=== PATIENT | male | born 1935 | race Caucasian/White ===

== ENCOUNTER 2017-01-29 19:04 | Inpatient (IN) | payer OTHER, MEDICARE ==
[~2017-01-29] VITALS: Ht 182.9 cm; Wt 110.5 kg
[~2017-01-29 19:04] MED LIST: BUME2TAB PO; CART300C PO; COUM2.5T PO; METO50TA PO; RANI300C PO; TRAM50TA PO; WARF-23 PO
[2017-01-29 19:12] VITALS: BP 143/69; PULSE 112; RESP 25; TEMP 98.8; O2SAT 97
[2017-01-29 19:21] VITALS: BP 125/93; PULSE 126; RESP 20; O2SAT 95
--- NOTE | 2017-01-29 19:28 | PD ---
HPI Chief Complaint: General Weakness Time Seen by Provider: 19:19 Travel History International Travel<30 days: No Contact w/Intl Traveler<30days: No Traveled to known affect area: No History of Present Illness HPI The patient is a 81 year old male who presents to the [facility] emergency department with a history of bilateral lower extremity swelling and pain with standing that began on evening. He reports that he has had a history of cellulitis one time in the past that improved with wound care. He reports that last week he fell and scraped his left knee and his right narayan. He reports that since then the areas of abrasions have begun to weep and appeared to have gotten infected. The patient reports that today related to the pain in his legs and difficulty walking he did fall. He denies injuring himself with the fall. He reports that he was in the process of making food when he fell. He reports that he has not eaten throughout the day because of the fall. The patient reports that he lives at home alone. He reports that his primary care physician is Dr. Lucas Welch. He denies having any known fevers. A review of systems, he reports having some dyspnea on exertion, however he reports that this is chronic. He denies having any medical history of breathing disorders. He reports that he did have a history of smoking, however he quit approximately 17 years ago. He denies using any inhalers. The patient denies any recent cough , congestion, neck pain, chest pain, abdominal pain, vomiting, diarrhea, urinary symptoms, or neurologic symptoms. The patient reports that he last moved his bowels earlier today. [facility] Past Medical History Narrative Medical The patient's past medical history is significant for prostate cancer status post prostatectomy and radiation treatment, history of atrial fibrillation, hypertension, history of being chronically anticoagulated on Coumadin, history of acid reflux, history of chronic back pain related to spinal stenosis. The patient reports that he was recently referred to pain management. He has undergone a series of 3 back injections. The last back injection was 3 weeks ago. He reports that it has not helped at all. He reports that he is pain- free when he sits or lies down, however when he stands or walks the pain is excruciating. Hx Anticoagulant Therapy: Yes Atrial Fibrillation: Yes Blood Disorders: Yes Heart Rhythm Problems: Yes (A FIB) Cancer: Yes Cardiovascular Problems: Yes GERD: Yes Hypertension: Yes Past Surgical History Narrative Surgical The patient's past surgical history is significant for an appendectomy, prostatectomy. Appendectomy: Yes Prostatectomy: Yes Social History Alcohol Use: Yes (1 beer daily) Tobacco Use: No Substance Use: No Allergies-Medications (Allergen,Severity, Reaction): Coded Allergies: Sulfa (Verified Allergy, Severe, 10/17/16) Tetanus Immune Globulin (Verified Allergy, Severe, Swelling, 10/17/16) Reported Meds & Prescriptions Reported Meds & Active Scripts Active Reported Tramadol (Tramadol HCl) 50 Mg Tab 50 Mg PO BID PRN Ranitidine (Ranitidine HCl) 300 Mg Cap 300 Mg PO BID Metoprolol Tartrate 50 Mg Tab 50 Mg PO TID Coumadin (Warfarin) 2.5 Mg Tab 2.5 Mg PO DAILY Bumetanide 2 Mg Tab 2 Mg PO DAILY PRN Cartia Xt (Diltiazem ER 24 HR) 300 Mg Caper 300 Mg PO DAILY Review of Systems Except as stated in HPI: all other systems reviewed are Neg General / Constitutional: No: Fever, Chills Eyes: No: Visual changes HENT: No: Headaches Cardiovascular: Positive: Dyspnea on exertion, Edema, No: Chest Pain or Discomfort Respiratory: No: Shortness of Breath Gastrointestinal: No: Nausea, Vomiting, Diarrhea, Abdominal Pain Genitourinary: No: Dysuria Musculoskeletal: Positive: Myalgias, Arthralgias, Limited ROM, Edema, Pain Skin: No Rash Neurologic: No: Weakness, Focal Abnormalities, Change in Mentation, Slurred Speech, Sensory Disturbance Psychiatric: No: Depression Endocrine: No: Polydipsia Hematologic/Lymphatic: No: Easy Bruising Physical Exam Narrative General: The patient is a well-developed well-nourished male in no acute distress. Head and Neck exam: Head is normocephalic atraumatic. Eyes: EOMI, pupils are equal round and reactive to light. Nose: Midline septum with pink mucous membranes Mouth: Dentition unremarkable. Moist mucus membranes. Posterior oropharynx is not erythematous. No tonsillar hypertrophy. Uvula midline. Airway patent. Neck: No palpable lymphadenopathy. No nuchal rigidity. No thyromegaly. Cardiovascular: Irregularly irregular with a rate in the 1 teens to 120s without murmurs, gallops, or rubs. Lungs: Clear to auscultation bilaterally. No wheezes, rhonchi, or rales. Abdomen: Soft, without tenderness to palpation in all 4 quadrants of the abdomen. No guarding, rebound, or rigidity. Normal bowel sounds are audible. No tenderness on palpation of McBurney's point Extremities: No clubbing or cyanosis. The patient has 2+ pitting edema bilateral lower extremity. The patient has less than 3 second capillary refill bilateral lower extremities, 2+ pulses in bilateral upper extremities. The patient on examination of bilateral lower narayan is has cellulitis with weeping noted. The patient has 2 wounds noted one on the right leg, right lateral narayan that is 4 x 3 cm. The patient on examination of the left knee has a 3 x 2 cm area of abrasion with drainage. Back: No costovertebral angle tenderness to palpation. Neurologic Exam: Grossly nonfocal. Data Data Last Documented VS Vital Signs Date Time Temp Pulse Resp B/P Pulse Ox O2 Delivery O2 Flow Rate FiO2 01/29/17 19:21 126 20 125/93 95 Room Air 01/29/17 19:12 98.8 Orders Us Leg Venous Doppler Bilat (01/29/17 19:28) Electrocardiogram (01/29/17:29) Complete Blood Count With Diff (01/29/17:) Comprehensive Metabolic Panel (01/29/17:) Creatine Kinase (Cpk) (01/29/17:29) Ckmb (Isoenzyme) Profile (01/29/17:29) Troponin I (01/29/17:) B-Type Natriuretic Peptide (01/29/17:) Prothrombin Time / Inr (Pt) (01/29/17:) Act Partial Throm Time (Ptt) (01/29/17:29) Blood Culture (01/29/17:) C-Reactive Protein (Crp) (01/29/17:) Wound Culture And Gram Stain (01/29/17:) Chest, Single Ap (01/29/17:) Iv Access Insert/Monitor (01/29/17:) Ecg Monitoring (01/29/17:) Oximetry (01/29/17:) Lactic Acid Sepsis Protocol (01/29/17:) Sodium Chlorid 0.9% 500 Ml Inj (Ns 500 M (01/29/17 19:30) Piperacil-Tazo 3.375 Gm Premix (Zosyn 3. (01/29/17 19:30) Vancomycin Inj (Vancomycin Inj) (01/29/17 19:30) Ct Brain W/O Iv Contrast(Rout) (01/29/17 19:33) Ct Cerv Spine W/O Contrast (01/29/17 19:33) Sodium Chlorid 0.9% 500 Ml Inj (Ns 500 M (01/29/17 20:45) Admit Order (Ed Use Only) (01/29/17 20:57) Labs Laboratory Tests Test 01/29/17 01/29/17 19:15 19:39 White Blood Count 16.4 TH/MM3 Red Blood Count 5.27 MIL/MM3 Hemoglobin 16.3 GM/DL Hematocrit 48.9 % Mean Corpuscular Volume 92.8 FL Mean Corpuscular Hemoglobin 30.9 PG Mean Corpuscular Hemoglobin 33.3 % Concent Red Cell Distribution Width 14.7 % Platelet Count 565 TH/MM3 Mean Platelet Volume 7.9 FL Neutrophils (%) (Auto) 85.6 % Lymphocytes (%) (Auto) 4.1 % Monocytes (%) (Auto) 8.8 % Eosinophils (%) (Auto) 0.3 % Basophils (%) (Auto) 1.2 % Neutrophils # (Auto) 14.1 TH/MM3 Lymphocytes # (Auto) 0.7 TH/MM3 Monocytes # (Auto) 1.4 TH/MM3 Eosinophils # (Auto) 0.0 TH/MM3 Basophils # (Auto) 0.2 TH/MM3 CBC Comment DIFF FINAL Differential Comment Prothrombin Time 18.6 SEC Prothromb Time International 1.6 RATIO Ratio Activated Partial 35.7 SEC Thromboplast Time Sodium Level 134 MEQ/L Potassium Level 3.9 MEQ/L Chloride Level 93 MEQ/L Carbon Dioxide Level 30.2 MEQ/L Anion Gap 11 MEQ/L Blood Urea Nitrogen 36 MG/DL Creatinine 1.80 MG/DL Estimat Glomerular Filtration 37 ML/MIN Rate Random Glucose 124 MG/DL Calcium Level 9.1 MG/DL Total Bilirubin 1.1 MG/DL Aspartate Amino Transf 27 U/L (AST/SGOT) Alanine Aminotransferase 36 U/L (ALT/SGPT) Alkaline Phosphatase 130 U/L Total Creatine Kinase 81 U/L Troponin I LESS THAN 0.02 NG/ML C-Reactive Protein 9.90 MG/DL B-Type Natriuretic Peptide 50 PG/ML Total Protein 7.7 GM/DL Albumin 2.9 GM/DL Lactic Acid Level 3.4 mmol/L [facility] Medical Decision Making Medical Screen Exam Complete: Yes Emergency Medical Condition: Yes Medical Record Reviewed: Yes Interpretation(s) Last Impressions Head CT 01/29/171932 Signed Impressions: Service Date/Time: Sunday, January 29, 2017 19:49 - CONCLUSION: No acute disease. Dewey Castellon MD FACR Cervical Spine CT 01/29/171932 Signed Impressions: Service Date/Time: Sunday, January 29, 2017 19:49 - CONCLUSION: Extensive degenerative changes are present. Significant spinal stenosis is present from mid C4 to mid C7. There is no evidence for fracture. Dewey Castellon MD FACR Chest X-Ray 01/29/171928 Signed Impressions: Service Date/Time: Sunday, January 29, 2017 19:43 - CONCLUSION: Compensated cardiomegaly otherwise negative Dewey Castellon MD FACR Lower Extremity Ultrasound 01/29/171927 Signed Impressions: Service Date/Time: Sunday, January 29, 2017 20:11 - CONCLUSION: Negative for deep venous thrombosis.. Dewey Castellon MD FACR Differential Diagnosis Cellulitis, versus renal failure, versus DVT, versus cor pulmonale, versus left- sided congestive heart failure. Narrative Course During the course of the patients emergency department visit, the patients history, examination, and differential diagnosis were reviewed with the patient. The patient had IV access obtained and blood work sent for analysis. The patient was placed on a mine car repairer with oximetry and blood pressure monitoring. The patient had an EKG done on arrival. The patient's EKG shows atrial fibrillation with RVR, heart rate of 111, no acute ST segment elevation or depression. A premature ventricular complexes noted. The patient was initially provided normal saline of 500 mL bolus. The patient was given Zosyn 3.375 g IV, vancomycin 1 g IV. The patients laboratory studies were reviewed and remarkable for a white count of 16.4, hemoglobin 16.3, platelets 565 with 85.6 neutrophils, lymphocytes 4.1 monocytes 8.8, CMP is remarkable for sodium of 134, chloride 93, BUN 36, creatinine 1.80, glucose 124, total bilirubin 1.1, alkaline phosphatase 130, CPK 81, troponin I less than 0.02, C-reactive protein 9.9, albumin 2.9, BNP 50. Lactic acid 3.4, INR 1.6 The patient's laboratory studies were reviewed from prior evaluation. The patient does have a history of renal insufficiency. His last BUN and creatinine in 2010 were 28 and 1.41 respectively. The patient's elevated lactate could be related to a combination of dehydration and infectious process. The patient has a normal BNP, therefore the patient was given an additional normal saline 500 mL bolus. The patient will also be continued on IV fluids and reexamined repeatedly for any signs of fluid overload. The patient will be continued on judicious IV hydration due to his compensated cardiomegaly on chest x-ray. The patient's tachycardia is improved with rehydration. Radiology studies were reviewed and remarkable for a chest x-ray that showed compensated cardiomegaly otherwise negative, CT scan of the brain showed no acute abnormality. CT scan of the C-spine showed extensive degenerative changes , significant spinal stenosis is present from mid C4 to mid c 7, no evidence for fracture. Ultrasound of bilateral lower extremities reveals no evidence of DVT. The patients results were discussed with the patient, including the plan of care. I explained that further testing and/ or monitoring is indicated based on the patients history, examination, and/ or laboratory findings. Therefore, I recommended admission for additional evaluation. The patient expressed understanding and was agreeable with this plan. The patient was admitted to the hospital in stable condition and [facility] Critical Care Narrative Aggregate critical care time was 33 minutes. Time to perform other separately billable procedures was not included in the critical care time. My time did not include minutes spent treating any other patients simultaneously or on activities that did not directly contribute to the patient's treatment. The services I provided to this patient were to treat and/or prevent clinically significant deterioration that could result in: Respiratory failure, versus cardiovascular collapse, versus electrolyte derangements I provided critical care services requiring my management, as noted below: Chart data review, documentation time, medication orders and management, vital sign assessments/reviewing monitor data, ordering and reviewing lab tests, ordering and interpreting/reviewing x-rays and diagnostic studies, care of the patient and discussion of the patient with the admitting physicians. Sepsis Criteria SIRS Criteria (2 or more): Heart rate over 90, RR > 20 or PaCO2 < 32, WBC > 45699, < 4000 or > 10% bands Sepsis Criteria (SIRS+source): Infect source susp/known Severe Sepsis (+one): Lactate >2 Physician Communication Physician Communication The patient's case was discussed with Dr. Gutierrez, who did agree to admit the patient for further evaluation and treatment at this time. Diagnosis Primary Impression: Lower extremity cellulitis Qualified Code: L03.119 - Cellulitis of lower extremity, unspecified laterality Additional Impression: Sepsis Qualified Code: A41.9 - Sepsis, due to unspecified organism Admitting Information Admitting Physician Requests: Admit Alessandra Slade MD January 29, 2017 19:28
[2017-01-29] MEDS ORDERED: SODIUM CHLORID 0.9% 500 ML INJ 500 ML IV ONE ×2 (19:30→20:45)
[2017-01-29] MEDS ORDERED: PIPERACIL-TAZO 3.375 GM PREMIX 50 ML IV ONE (19:30)
[2017-01-29] MEDS ORDERED: VANCOMYCIN INJ 1,000 MG in SODIUM CHLOR 0.9% 250 ML INJ 250 ML IV ONE (19:30)
--- NOTE | 2017-01-29 19:54 | RADRPT ---
EXAM DATE/TIME: 01/29/2017 19:43 [facility] COMPARISON: No previous studies available for comparison. INDICATIONS : Shortness of breath and lower extremity swelling. MEDICAL HISTORY : Atrial fibrillation. SURGICAL HISTORY : None. ENCOUNTER: Initial ACUITY: 1 day PAIN SCORE: 0/10 LOCATION: Bilateral chest FINDINGS: A single view of the chest demonstrates the lungs to be symmetrically aerated without evidence of mas s, infiltrate The lungs are clear. The heart is minimally enlarged. The pulmonary vascularity is normal. There is n o evidence for infiltrate or failure. The portion of the bony skeleton visualized is unremarkable. CONCLUSION: Compensated cardiomegaly otherwise negative Dewey Castellon MD FACR Board Certified Radiologist. This report was verified electronically.
[2017-01-29 20:06] LABS: AUTOMATED NEUTROPHIL # 14.1 TH/MM3 (1.8-7.7); BASOPHIL # 0.2 TH/MM3 (0-0.2); BASOPHIL % 1.2 % (0.0-2.0); EOSINOPHIL % 0.3 % (0.0-4.0); HEMATOCRIT 48.9 % (39.0-51.0); HEMO FLAGS DIFF FINAL; LYMPH % 4.1 % (9.0-44.0); LYMPHOCYTE # 0.7 TH/MM3 (1.0-4.8); MEAN CELL VOLUME 92.8 FL (80.0-100.0); MEAN CORPUSCULAR HEMOGLOBIN 30.9 PG (27.0-34.0); MEAN CORPUSCULAR HGB CONC 33.3 % (32.0-36.0); MONO % 8.8 % (0.0-8.0); NEUT % 85.6 % (16.0-70.0); PLATELET COUNT 565 TH/MM3 (150-450); RED BLOOD COUNT 5.27 MIL/MM3 (4.50-5.90); RED CELL DISTRIBUTION WIDTH 14.7 % (11.6-17.2); WHITE BLOOD COUNT 16.4 TH/MM3 (4.0-11.0)
--- NOTE | 2017-01-29 20:06 | RADRPT ---
EXAM DATE/TIME: 01/29/2017 19:49 [facility] COMPARISON: No previous studies available for comparison. INDICATIONS : Trauma, fall today. RADIATION DOSE: 38.34 CTDIvol (mGy) MEDICAL HISTORY : Cardiovascular disease. Hypertension. Carcinoma, prostate. SURGICAL HISTORY : Appendectomy. Prostatectomy. ENCOUNTER: Initial ACUITY: 1 day PAIN SCALE: 2/10 LOCATION: cranial TECHNIQUE: Multiple contiguous axial images were obtained of the head. Using automated exposure control and adj ustment of the mA and/or kV according to patient size, radiation dose was kept as low as reasonably a chievable to obtain optimal diagnostic quality images. FINDINGS: CEREBRUM: The ventricles are normal for age. No evidence of midline shift, mass lesion, hemorrhage or acute in farction. No extra-axial fluid collections are seen. POSTERIOR FOSSA: The cerebellum and brainstem are intact. The 4th ventricle is midline. The cerebellopontine angle i s unremarkable. EXTRACRANIAL: The visualized portion of the orbits is intact. SKULL: The calvaria is intact. No evidence of skull fracture. CONCLUSION: No acute disease. Dewey Castellon MD FACR on January 29, 2017 at 20:04 Board Certified Radiologist. This report was verified electronically.
--- NOTE | 2017-01-29 20:15 | RADRPT ---
EXAM DATE/TIME: 01/29/2017 19:49 [facility] COMPARISON: No previous studies available for comparison. INDICATIONS : Trauma, fall today. Complains of neck pain. RADIATION DOSE: 20.66 CTDIvol (mGy) MEDICAL HISTORY : Hypertension. Cardiovascular disease Carcinoma, prostate. SURGICAL HISTORY : Prostatectomy. Appendectomy. ENCOUNTER: Initial ACUITY: 1 day PAIN SCALE: 3/10 LOCATION: neck TECHNIQUE: Volumetric scanning of the cervical spine was performed. Multiplanar reconstructions in the sagittal, coronal and oblique axial planes were performed. Using automated exposure control and adjustment o f the mA and/or kV according to patient size, radiation dose was kept as low as reasonably achievable to obtain optimal diagnostic quality images. FINDINGS: VERTEBRAE: Normal vertebral body height. ALIGNMENT: Extensive degenerative changes are present with minimal degenerative subluxation. C2-C3: Mild interspace ridging is present without significant spinal stenosis. Degenerative changes are pre sent at C1-C2. C3-C4: Moderate uncinate ridging is present with significant right-sided neural foramen encroachment. C4-C5: Is an enhancing ridging is present with significant right-sided neural foramina encroachment. C5-C6: There is radiographically significant spinal stenosis with significant bilateral neural foramina encr oachment. C6-C7: Significant spinal stenosis is evident with bilateral prominent placement. C7-T1: The bony spinal canal is normal in size. No evidence of disc bulge or herniation. The neural forami na are bilaterally patent. CONCLUSION: Extensive degenerative changes are present. Significant spinal stenosis is present from mid C4 to mi d C7. There is no evidence for fracture. Dewey Castellon MD FACR on January 29, 2017 at 20:10 Board Certified Radiologist. This report was verified electronically.
[2017-01-29 20:19] LABS: APTT (PATIENT) 35.7 SEC (24.3-30.1); INTERNATIONAL NORMALIZED RATIO 1.6 RATIO; PROTHROMBIN TIME - PATIENT 18.6 SEC (9.8-11.6)
[2017-01-29 20:26] LABS: ANION GAP 11 MEQ/L (5-15); AST (GOT) 27 U/L (15-37); BICARBONATE 30.2 MEQ/L (21.0-32.0); BLOOD UREA NITROGEN 36 MG/DL (7-18); CHLORIDE 93 MEQ/L (98-107); GLOMERULAR FILTRATION RATE 37 ML/MIN (>89); POTASSIUM 3.9 MEQ/L (3.5-5.1); SODIUM (NA) 134 MEQ/L (136-145)
[2017-01-29 20:32] LABS: ALKALINE PHOSPHATASE 130 U/L (45-117); ALT (GPT) 36 U/L (12-78); TOTAL BILIRUBIN ADULT 1.1 MG/DL (0.2-1.0)
[2017-01-29 20:33] LABS: CREATINE KINASE 81 U/L (39-308)
--- NOTE | 2017-01-29 20:54 | RADRPT ---
EXAM DATE/TIME: 01/29/2017 20:11 [facility] COMPARISON: No previous studies available for comparison. INDICATIONS : Bilateral leg swelling and pain. MEDICAL HISTORY : Hypertension. Gastroesophageal reflux disease. Carcinoma, prostate. Afib. Cellulitis. Anticoagulant t herapy. Osteoarthritis. Skin cancer. Radiation therapy. Spinal stenosis. SURGICAL HISTORY : Prostatectomy.Appendectomy. ENCOUNTER: Initial ACUITY: 4 - 6 days PAIN SCORE: 9/10 LOCATION: Bilateral legs. TECHNIQUE: Venous ultrasound of the left and right leg was performed from the inguinal ligament to the proximal calf. Real-time, color Doppler and spectral tracing, compression and augmentation techniques were us ed. FINDINGS: RIGHT LEG: There is normal compressibility of the deep venous system from the inguinal region to the proximal ca lf. No echogenic clot is seen in the lumen of the common femoral, femoral, popliteal, and posterior tibial veins. There is a normal response of the venous system to proximal and distal augmentation an d respiration. LEFT LEG: There is normal compressibility of the deep venous system from the inguinal region to the proximal ca lf. No echogenic clot is seen in the lumen of the common femoral, femoral, popliteal, and posterior tibial veins. There is a normal response of the venous system to proximal and distal augmentation an d respiration. CONCLUSION: Negative for deep venous thrombosis.. Dewey Castellon MD FACR on January 29, 2017 at 20:51 Board Certified Radiologist. This report was verified electronically.
[2017-01-29] MEDS ORDERED: BUMETANIDE 1 MG TAB PO PRN (21:00)
[2017-01-29] MEDS ORDERED: METOPROLOL TARTRATE 50 MG TAB PO ONE (21:00)
[2017-01-29] MEDS ORDERED: MORPHINE SULFATE 4 MG/ML INJ IV PRN (21:00)
[2017-01-29] MEDS ORDERED: ACETAMINOPHEN 325 MG TAB PO PRN (21:00)
[2017-01-29] MEDS ORDERED: SODIUM CHLORIDE 0.9% FLUSH 10 ML FLUSH IV FLUSH PRN (21:00)
[2017-01-29] MEDS ORDERED: BISACODYL 10 MG SUPP RECTAL PRN (21:00)
[2017-01-29] MEDS ORDERED: ONDANSETRON HCL 4 MG/2 ML VIAL IVP PRN (21:00)
[2017-01-29] MEDS ORDERED: Vancomycin Consult Pharmacy 1 EA OTHER SCH (21:00)
--- NOTE | 2017-01-29 21:02 | HHI.HP ---
HPI Service [facility] Primary Care Physician No Primary Care Physician Admission Diagnosis Cellulitis bilateral lower extremities Diagnoses: (1) Sepsis Diagnosis: Principal (2) Lower extremity cellulitis Diagnosis: Principal (3) Fall Diagnosis: Principal (4) Dehydration Diagnosis: Principal (5) Renal insufficiency Diagnosis: Principal (6) Atrial fibrillation with RVR Diagnosis: Principal Travel History International Travel<30 Days: No Contact w/Intl Traveler <30 Da: No Traveled to Known Affected Are: No History of Present Illness This is a 81-year-old male with PMH of HTN, Prostate CA s/p Prostatectomy/ Radiation, A. fib on Coumadin, Chronic Back Pain and Spinal Stenosis who presented to the ER with complaints of bilateral lower extremity edema and pain w/ difficulty ambulating since . Per pt, had fall and sustained abrasions to bilateral lower extremities, now w/ progressive pain and swelling. Notes significant pain bilateral feet making ambulation difficult. Had recurrent fall today, but denies any injury. No LOC or head trauma. Denies fever, chills, nausea/vomiting or diarrhea. On arrival, noted to be in A -fib w/ RVR, HR 110-120's, BP 143/69, O2 sat 97% on RA, Afebrile. WBC 16.4. Creatinine 1.80, previously 1.41 on 01/10/11. Lactic Acid 3.4. Troponin negative. INR 1.6. LE Doppler negative for DVT. CXR with compensated cardiomegaly. CT Evidence acute findings. CT C-spine with extensive degenerative changes, significant spinal stenosis, no acute fracture. S/p Wound /Blood Cultures in ER, in addition to Vanc/Zosyn. Review of Systems Except as stated in HPI: all other systems reviewed are Neg ROS: 14 point review of systems otherwise negative. Past Family Social History Past Medical History PMH: HTN, Prostate CA s/p Prostatectomy/Radiation, A. fib on Coumadin, Chronic Back Pain and Spinal Stenosis Past Surgical History PAST SURGICAL HISTORY: Appendectomy, Prostatectomy Allergies: Coded Allergies: Sulfa (Verified Allergy, Severe, 10/17/16) Tetanus Immune Globulin (Verified Allergy, Severe, Swelling, 10/17/16) Family History PAST FAMILY HISTORY: Reviewed. No h/o DM or CAD Social History PAST SOCIAL HISTORY: One beer daily. Negative for tobacco or drugs. Physical Exam Vital Signs Vital Signs Date Time Temp Pulse Resp B/P Pulse Ox O2 Delivery O2 Flow Rate FiO2 01/29/17 19:21 126 20 125/93 95 Room Air 01/29/17 19:12 98.8 112 25 143/69 97 Room Air Physical Exam PE: GENERAL: Elderly white male in no acute distress. HEENT: PERRLA, EOMI. No scleral icterus or conjunctival pallor. No lid lag or facial droop. CARDIOVASCULAR: Irregularly irregular, in A. fib, HR 110-120. No obvious murmurs to auscultation. No chest tenderness to palpation. RESPIRATORY: No obvious rhonchi or wheezing. Clear to auscultation. Breath sounds equal bilaterally. GASTROINTESTINAL: Abdomen soft, non-tender, nondistended. BS normal. MUSCULOSKELETAL: Bilateral lower extremities w/ 2-3+ pitting edema, +erythema/ warmth indicative of cellulitis. Abrasions to bilateral knees, right narayan w/ abrasion/ulceration, +purulent drainage. NEUROLOGICAL: Awake, alert and oriented x4. No focal neurologic deficits. Moving both upper and lower extremities spontaneously. Laboratory Laboratory Tests Test 01/29/17 01/29/17 19:15 19:39 White Blood Count 16.4 Red Blood Count 5.27 Hemoglobin 16.3 Hematocrit 48.9 Mean Corpuscular Volume 92.8 Mean Corpuscular Hemoglobin 30.9 Mean Corpuscular Hemoglobin 33.3 Concent Red Cell Distribution Width 14.7 Platelet Count 565 Mean Platelet Volume 7.9 Neutrophils (%) (Auto) 85.6 Lymphocytes (%) (Auto) 4.1 Monocytes (%) (Auto) 8.8 Eosinophils (%) (Auto) 0.3 Basophils (%) (Auto) 1.2 Neutrophils # (Auto) 14.1 Lymphocytes # (Auto) 0.7 Monocytes # (Auto) 1.4 Eosinophils # (Auto) 0.0 Basophils # (Auto) 0.2 CBC Comment DIFF FINAL Differential Comment Prothrombin Time 18.6 Prothromb Time International 1.6 Ratio Activated Partial 35.7 Thromboplast Time Sodium Level 134 Potassium Level 3.9 Chloride Level 93 Carbon Dioxide Level 30.2 Anion Gap 11 Blood Urea Nitrogen 36 Creatinine 1.80 Estimat Glomerular Filtration 37 Rate Random Glucose 124 Calcium Level 9.1 Total Bilirubin 1.1 Aspartate Amino Transf 27 (AST/SGOT) Alanine Aminotransferase 36 (ALT/SGPT) Alkaline Phosphatase 130 Total Creatine Kinase 81 Troponin I LESS THAN 0.02 C-Reactive Protein 9.90 B-Type Natriuretic Peptide 50 Total Protein 7.7 Albumin 2.9 Lactic Acid Level 3.4 Date/Time Procedure Status Source Growth 01/29/17 19:40 Gram Stain Received Wound Leg Pending 01/29/17 19:40 Wound Culture Received Wound Leg Pending 01/29/17 19:30 Aerobic Blood Culture Received Blood Peripheral Pending 01/29/17 19:30 Anaerobic Blood Culture Received Blood Peripheral Pending Result Diagram: 01/29/17191401/29/171914 Assessment and Plan Problem List: (1) Sepsis ICD Code: A41.9 Status: Acute (2) Lower extremity cellulitis ICD Code: L03.119 Status: Acute (3) Fall ICD Code: W19.XXXA Status: Acute (4) Atrial fibrillation with RVR ICD Code: I48.91 Status: Acute (5) Dehydration ICD Code: E86.0 Status: Acute (6) Renal insufficiency ICD Code: N28.9 Status: Acute Assessment and Plan A/P: 1. Sepsis: HR 120's, WBC 16, Lactic Acid 3.4, Source-LE Cellulitis. S/p Blood /Wound Cultures, Vanc/Zosyn in ER. Follow up cultures, continue w/ IV Abx, repeat Lactate. IVF for hydration. 2. Lower Extremity Cellulitis: s/p fall w/ abrasions to bilateral lower extremity, now infected. LE Doppler negative for DVT, images reviewed by me. Continue w/ IV Abx as above. Wound Management consult for further eval. 3. Fall: S/p Fall, recurrent, secondary to gait instability from progressive lower extremity edema/pain. Denies head trauma or LOC, CT Head w/ no acute findings. CT C-Spine w/ degenerative changes, severe spinal stenosis, no acute fracture, images reviewed by me. PT for eval/tx. 4. A-fib: w/ RVR, HR 110-120's, likely secondary to dehydration from decreased PO intake. IVF for hydration, telemetry. Resume home Metoprolol, Diltiazem. On Coumadin, subtherapeutic, resume Coumadin. Check INR in am. 5. Dehydration: GFR 37, BUN/Creatinine increased from previous labs, IVF for hydration, repeat labs in am. 6. Renal Insufficiency: Acute on Chronic. Creatinine 1.80, previously 1.41 on 01/10/11. IVF for hydration, caution w/ diuresis. Repeat labs in am. 7. DVT Prophylaxis: On Coumadin. Subtherapeutic at 1.6, will resume, repeat INR in am. 8. Social work for d/c planning as needed. 9. Case discussed w/ ER physician at length Physician Certification 2 Midnight Certification Type: Admission for Inpatient Services Order for Inpatient Services The services are ordered in accordance with Medicare regulations or non- Medicare payer requirements, as applicable. In the case of services not specified as inpatient-only, they are appropriately provided as inpatient services in accordance with the 2-midnight benchmark. Estimated LOS (days): 2 days is the estimated time the patient will need to remain in the hospital, assuming treatment plan goals are met and no additional complications. Post-Hospital Plan: Not yet determined Kylie Gutierrez MD January 29, 2017 21:02
[2017-01-29 21:03] VITALS: BP 125/82; PULSE 100; RESP 18; O2SAT 95
[2017-01-29] MEDS: SODIUM CHLORIDE 0.9% FLUSH 10 ML FLUSH IV FLUSH SCH (21:15)
[2017-01-29] MEDS: FAMOTIDINE 20 MG TAB PO SCH (21:19)
[2017-01-29 21:25] VITALS: BP 125/70; PULSE 110; RESP 15; O2SAT 96
[2017-01-29 21:47] LABS: LACTIC ACID GHOST NOT REPORTABLE
[2017-01-29 23:00] VITALS: BP 100/70; PULSE 90; RESP 20; TEMP 98.8; O2SAT 92
[2017-01-29] MEDS: SODIUM CHLOR 0.9% 1000 ML INJ 1,000 ML IV SCH (23:31)
[2017-01-30] VITALS (9 sets, daily range): BP systolic 100–151; BP diastolic 55–72; PULSE 89–106; RESP 16–20; TEMP 98–99.6; O2SAT 92–98
[2017-01-30 07:07] LABS: AUTOMATED NEUTROPHIL # 9.8 TH/MM3 (1.8-7.7); BASOPHIL % 0.2 % (0.0-2.0); EOSINOPHIL % 0.2 % (0.0-4.0); HEMATOCRIT 41.2 % (39.0-51.0); HEMO FLAGS DIFF FINAL; LYMPH % 7.4 % (9.0-44.0); LYMPHOCYTE # 0.9 TH/MM3 (1.0-4.8); MEAN CELL VOLUME 92.6 FL (80.0-100.0); MEAN CORPUSCULAR HEMOGLOBIN 30.9 PG (27.0-34.0); MEAN CORPUSCULAR HGB CONC 33.3 % (32.0-36.0); MONO % 9.1 % (0.0-8.0); NEUT % 83.1 % (16.0-70.0); PLATELET COUNT 427 TH/MM3 (150-450); RED BLOOD COUNT 4.45 MIL/MM3 (4.50-5.90); RED CELL DISTRIBUTION WIDTH 15.2 % (11.6-17.2); WHITE BLOOD COUNT 11.8 TH/MM3 (4.0-11.0)
[2017-01-30 07:15] LABS: INTERNATIONAL NORMALIZED RATIO 2.2 RATIO
[2017-01-30 07:41] LABS: ALKALINE PHOSPHATASE 100 U/L (45-117); ALT (GPT) 27 U/L (12-78); ANION GAP 5 MEQ/L (5-15); AST (GOT) 20 U/L (15-37); BICARBONATE 33.9 MEQ/L (21.0-32.0); BLOOD UREA NITROGEN 28 MG/DL (7-18); CHLORIDE 99 MEQ/L (98-107); GLOMERULAR FILTRATION RATE 53 ML/MIN (>89); POTASSIUM 4.3 MEQ/L (3.5-5.1); SODIUM (NA) 138 MEQ/L (136-145); TOTAL BILIRUBIN ADULT 0.9 MG/DL (0.2-1.0)
[2017-01-30] MEDS: METOPROLOL TARTRATE 50 MG TAB PO SCH ×3 (08:48→17:58)
[2017-01-30] MEDS: SODIUM CHLOR 0.9% 1000 ML INJ 1,000 ML IV SCH ×2 (08:48→16:14)
[2017-01-30] MEDS: FAMOTIDINE 20 MG TAB PO SCH ×2 (08:48→22:40)
[2017-01-30] MEDS: DILTIAZEM-CD 300 MG CAP ER PO SCH (08:49)
[2017-01-30] MEDS: BUMETANIDE 1 MG TAB PO SCH (08:49)
[2017-01-30] MEDS ORDERED: CEFEPIME INJ 1,000 MG in SODIUM CHLORIDE 0.9% INJ 100 ML IV SCH (09:00)
[2017-01-30] MEDS ORDERED: WARFARIN SOD 2.5 MG TAB PO SCH ×2 (09:00→16:00)
[2017-01-30] MEDS ORDERED: CEFEPIME 2000 MG/NS 100 ML IV SCH ×4 (09:30→10:00)
[2017-01-30] MEDS: SODIUM CHLORIDE 0.9% FLUSH 10 ML FLUSH IV FLUSH SCH ×2 (10:08→22:40)
[2017-01-30] MEDS: VANCOMYCIN INJ 2,000 MG in SODIUM CHLORID 0.9% 500 ML INJ 500 ML IV SCH (12:22)
[2017-01-30] MEDS: ACETAMINOPHEN/HYDROcodone 325 MG/5 MG TAB PO PRN ×3 (12:47→22:39)
[2017-01-30] MEDS ORDERED: GADODIAMIDE PF 287 MG/ML 5 ML VIAL (for RAD MRI) IV ONE (19:11)
--- NOTE | 2017-01-30 20:15 | RADRPT ---
EXAM DATE/TIME: 01/30/2017 18:55 [facility] COMPARISON: No previous studies available for comparison. INDICATIONS : Radiculopathy. CONTRAST: 22 cc Omniscan (gadodiamide) IV MEDICAL HISTORY : Carcinoma, prostate. Diabetes mellitus type 2. Skin cancer. SURGICAL HISTORY : Appendectomy. Prostatectomy. Skin cancer removed. ENCOUNTER: Initial ACUITY: 4-6 months PAIN SCORE: 10/10 LOCATION: Bilateral lower back region. TECHNIQUE: Multiplanar multisequence MRI of the lumbar spine was performed with and without contrast. FINDINGS: The most caudal appearing lumbar vertebra is numbered as L5. VERTEBRAE: Homogeneous signal. Normal alignment. Multilevel degenerative changes greatest at L5-S1. CONUS: Normal level and configuration. POST CONTRAST: No abnormal areas of contrast enhancement are seen. T12-L1: The thecal sac has a normal diameter. No evidence of disc bulge or protrusion. The neural foramina are patent bilaterally. L1-L2: Moderate left-sided protrusion abuts the left ventral thecal sac and abuts the L3 nerve root in the l ateral recess. There is extruded component extending superiorly underneath the posterior longitudinal ligament. There is narrowing of the left lateral recess. The neural foramina are patent bilaterally . L2-L3: Mild broad-based disc bulge abuts ventral thecal sac without canal stenosis. Moderate facet arthropat hy. The neural foramina are patent bilaterally. L3-L4: Moderate broad-based disc bulge slightly eccentric to left abuts the ventral thecal sac. Mild degree of canal stenosis. Mild facet arthropathy/ligamentum flavum thickening. The disc abuts the exiting le ft L3 nerve root there is mild narrowing of the neural foramen. Right neural foramen is patent. L4-L5: Moderate broad-based protrusion more eccentric to the right abuts the ventral thecal sac. There is al so a synovial cyst projecting from the medial right facet causes moderate to severe canal stenosis. M oderate hypertrophic facet arthropathy. Mild neural foraminal narrowing bilaterally. L5-S1: Broad-based disc bulge abuts the thecal sac. No canal stenosis. Moderate neural foraminal narrowing o n the right. Left neural foramen is patent. CONCLUSION: 1. Moderate left-sided protrusion at L1-2 with extruded component abutting the left L3 nerve root lat eral recess there is narrowing of the lateral recess. 2. Mild broad-based disc bulge at L2-3 and L5-S1 levels without canal stenosis. 3. Moderate broad-based disc bulge more eccentric to left at L3-4 causing mild canal stenosis. 4. Moderate broad-based extrusion marked eccentric to the right at L4-5 and conjunction with a synovi al cyst arising from the right facet causes moderate/severe canal stenosis. Juan Cartagena MD on January 30, 2017 at 20:07 Board Certified Radiologist. This report was verified electronically.
--- NOTE | 2017-01-30 21:39 | PD.CONS ---
History of Present Illness Service Neurosurgery Consult Requested By Dr. Rodriguez Reason for Consult Difficulty with ambulation Primary Care Physician Tremayne Welch M.D. Diagnoses: History of Present Illness 81-year-old male who states that he has a history of lumbar stenosis with at least several months of low back pain with ambulation. However he denies any pain weakness or numbness in the lower extremities prior to this past , 01/26/17. He states that he sometimes uses his 's cane or walker to ambulate , but states that this is due to low back pain not to gait unsteadiness. He did have 3 epidural steroid injections recently, with the last injection approximately 4 weeks ago. He states that the injections did not help the low back pain. He has a history of prostate cancer status post prostatectomy and radiation, but denies any recent or chronic problems with his bowel or bladder function. Mr. Shea states that this past , 01/26/2017, he was in his kitchen and his leg suddenly went out on him. He was not able to get up, and laid on the floor for a couple of hours until he could crawl over to the phone and call for help. A friend or neighbor came to help him. He stated that overnight and the next morning he states that he felt reasonably well and he was able to get up and go shopping that day. He did well until Monday night, 01/29/17 when he was at home in his legs again went out on him suddenly. This time he came to the emergency room. He states that also since 01/26/17 he is noted new onset of edema and erythema in his distal lower extremities. He usually does have some swelling and some skin changes in the legs, but not the extent that he has noted over the past few days. He does complain of rather chronic numbness in the hands which she attributes to arthritis. He does not complain of any pain or weakness in the upper extremities or significant loss of coordination. Review of Systems Constitutional: DENIES: Fever, Dizziness, Change in appetite Eyes: DENIES: Blurred vision, Diplopia Ears, nose, mouth, throat: DENIES: Hearing loss, Vertigo Respiratory: DENIES: Cough, Shortness of breath Cardiovascular: COMPLAINS OF: Dyspnea on Exertion, DENIES: Chest pain, Palpitations Gastrointestinal: DENIES: Abdominal pain, Constipation, Diarrhea, Nausea Genitourinary: COMPLAINS OF: Urinary frequency, DENIES: Urinary incontinence, Urgency Musculoskeletal: COMPLAINS OF: Joint pain, Back pain, DENIES: Muscle aches, Neck pain Hematologic/lymphatic: COMPLAINS OF: Bruising Neurologic: COMPLAINS OF: Abnormal gait, Poor Balance, DENIES: Headache, Localized weakness Psychiatric: DENIES: Confusion, Depression Past Family Social History Allergies: Coded Allergies: Sulfa (Verified Allergy, Severe, 10/17/16) Tetanus Immune Globulin (Verified Allergy, Severe, Swelling, 10/17/16) Past Medical History History of atrial fibrillation Hypertension Denies diabetes, dyslipidemia, pulmonary disease History of prostate cancer Past Surgical History Prostatectomy followed by radiation for prostate cancer Recent epidural steroid injections Appendectomy Reported Medications Reported Meds & Active Scripts Active Reported Tramadol (Tramadol HCl) 50 Mg Tab 50 Mg PO BID PRN Ranitidine (Ranitidine HCl) 300 Mg Cap 300 Mg PO BID Metoprolol Tartrate 50 Mg Tab 50 Mg PO TID Coumadin (Warfarin) 2.5 Mg Tab 2.5 Mg PO DAILY Bumetanide 2 Mg Tab 2 Mg PO DAILY PRN Cartia Xt (Diltiazem ER 24 HR) 300 Mg Caper 300 Mg PO DAILY Family History His father of a heart attack His mother of cancer Social History No history of cigarette use Drinks alcohol occasionally He lives alone Physical Exam Vital Signs Vital Signs Date Time Temp Pulse Resp B/P Pulse Ox O2 Delivery O2 Flow Rate FiO2 01/30/17 20:34 98.1 99 20 105/59 95 01/30/17 16:00 98.7 90 20 100/55 92 01/30/17 13:47 18 01/30/17 12:27 98.0 89 18 150/65 97 01/30/17 12:00 98.0 89 18 151/65 01/30/17 08:45 100 16 110/60 01/30/17 08:00 98.9 106 18 104/62 96 01/30/17 04:00 98.5 94 20 110/69 94 01/30/17 00:00 99.6 95 20 103/72 98 01/29/17 23:00 98.8 90 20 100/70 92 Physical Exam GENERAL: Moderately obese gentleman in no apparent distress SKIN: Significant erythema and edema in the distal lower extremities. Dry scaling skin in the calves and feet. He has dressings in place on lower extremity wounds at the distal calves and ankles HEAD: Atraumatic. Normocephalic. No temporal or scalp tenderness. EYES: Sclerae are clear and nonicteric ENT: No facial edema or ecchymosis NECK: . Supple, nontender, no meningeal signs. CARDIOVASCULAR: Irregular rhythm without murmurs, gallops, or rubs. RESPIRATORY: Clear to auscultation. Breath sounds equal bilaterally. No wheezes , rales, or rhonchi. GASTROINTESTINAL: Abdomen slightly firm, non-tender, moderately distended. No hepato-splenomegaly, or palpable masses. No guarding. MUSCULOSKELETAL: Mild arthritic changes in the hands. No complaint of pain with joint range of motion in the upper and lower extremities. NEUROLOGICAL: Awake and alert Oriented X 3 Speech is clear Conversant and appropriate Follow simple commands well Answers questions appropriately Reasonable judgment and insight Recent and remote memory are intact No evidence of anxiety or depression Pupils are equal and reactive to accommodation. Extra-ocular movements, facial motor movements, and bilateral shoulder shrug are all intact. Sensation is intact to light touch in all extremities except for complaint of mild paresthesias to light touch in the hands Strength normal major flexion and extension groups all extremities except for mild decreased right triceps and hand intrinsics. He states that he is left- handed. Valeri's response mild positive bilateral No ankle clonus Plantar responses are mildly extensor with mild quadriceps contraction bilateral Fine motor movements mildly slowed in the hands Laboratory Laboratory Tests Test 01/29/17 01/30/17 22:15 06:39 Lactic Acid Level 2.2 1.6 White Blood Count 11.8 Red Blood Count 4.45 Hemoglobin 13.7 Hematocrit 41.2 Mean Corpuscular Volume 92.6 Mean Corpuscular Hemoglobin 30.9 Mean Corpuscular Hemoglobin 33.3 Concent Red Cell Distribution Width 15.2 Platelet Count 427 Mean Platelet Volume 7.6 Neutrophils (%) (Auto) 83.1 Lymphocytes (%) (Auto) 7.4 Monocytes (%) (Auto) 9.1 Eosinophils (%) (Auto) 0.2 Basophils (%) (Auto) 0.2 Neutrophils # (Auto) 9.8 Lymphocytes # (Auto) 0.9 Monocytes # (Auto) 1.1 Eosinophils # (Auto) 0.0 Basophils # (Auto) 0.0 CBC Comment DIFF FINAL Differential Comment Prothrombin Time 25.0 Prothromb Time International 2.2 Ratio Sodium Level 138 Potassium Level 4.3 Chloride Level 99 Carbon Dioxide Level 33.9 Anion Gap 5 Blood Urea Nitrogen 28 Creatinine 1.31 Estimat Glomerular Filtration 53 Rate Random Glucose 130 Calcium Level 8.6 Total Bilirubin 0.9 Aspartate Amino Transf 20 (AST/SGOT) Alanine Aminotransferase 27 (ALT/SGPT) Alkaline Phosphatase 100 Total Protein 6.0 Albumin 2.3 Date/Time Procedure Status Source Growth 01/29/17 19:40 Gram Stain - Final Resulted Wound Leg 01/29/17 19:40 Wound Culture - Preliminary Resulted Gram Negative Percy Staphylococcus Aureus 01/29/17 19:30 Aerobic Blood Culture - Preliminary Resulted Blood Peripheral NO GROWTH IN 1 DAY 01/29/17 19:30 Anaerobic Blood Culture - Preliminary Resulted Blood Peripheral NO GROWTH IN 1 DAY 01/29/17 19:29 Gram Stain Received Wound Leg Pending 01/29/17 19:29 Wound Culture Received Wound Leg Pending Result Diagram: 01/30/17 0639 01/30/17 0639 Imaging 01/30/17 MRI lumbar spine images performed this evening as well as CT scan cervical spine images from 01/29/17 reviewed by the undersigned. Agree with findings as noted below: Lumbar Spine MRI 01/30/17 0000 Signed Impressions: Service Date/Time: Monday, January 30, 2017 18:55 - CONCLUSION: 1. Moderate left-sided protrusion at L1-2 with extruded component abutting the left L3 nerve root lateral recess there is narrowing of the lateral recess. 2. Mild broad-based disc bulge at L2-3 and L5-S1 levels without canal stenosis. 3. Moderate broad-based disc bulge more eccentric to left at L3-4 causing mild canal stenosis. 4. Moderate broad-based extrusion marked eccentric to the right at L4-5 and conjunction with a synovial cyst arising from the right facet causes moderate/severe canal stenosis. Juan Cartagena MD Head CT 01/29/171932 Signed Impressions: Service Date/Time: Sunday, January 29, 2017 19:49 - CONCLUSION: No acute disease. Dewey Castellon MD FACR Cervical Spine CT 01/29/171932 Signed Impressions: Service Date/Time: Sunday, January 29, 2017 19:49 - CONCLUSION: Extensive degenerative changes are present. Significant spinal stenosis is present from mid C4 to mid C7. There is no evidence for fracture. Dewey Castellon MD FACR Chest X-Ray 01/29/171928 Signed Impressions: Service Date/Time: Sunday, January 29, 2017 19:43 - CONCLUSION: Compensated cardiomegaly otherwise negative Dewey Castellon MD FACR Lower Extremity Ultrasound 01/29/171927 Signed Impressions: Service Date/Time: Sunday, January 29, 2017 20:11 - CONCLUSION: Negative for deep venous thrombosis.. Dewey Castellon MD FACR Assessment and Plan Assessment and Plan Impression: 1. Lumbar spondylosis and degenerative disc disease with moderately severe L4 5 stenosis, partially secondary to synovial cyst formation, as well as significant L1-2 stenosis 2. Cervical stenosis. Possible myelopathy 3. Recent episodes of acute onset paraparesis. Presently his lower extremity strength is within normal limits. His MRI this evening reveals a distended bladder. However no definite evidence of cauda equina syndrome on examination. Recommendations: Proceed with MRI cervical spine Continue physical therapy Bladder ultrasound requested this evening with possible Whitehead catheter placement -discussed with nursing staff and with patient. Discussed need for surgical intervention for the lumbar stenosis with the patient. The risk of developing radiculopathy or cauda equina syndrome discussed. He is anxious to go home, indicating that he came in last evening not anticipated that he would have to stay in the hospital. He states that he lives alone and has some things that he has to take care of. Explained to him the present medical issues which are being treated and evaluated, and he expresses an understanding of the issues involved. We will need to discuss with medicine service regarding the patient's medical clearance for surgery Moses Vargas MD January 30, 2017 21:39
[2017-01-30] MEDS ORDERED: PHYTONADIONE 5 MG TAB PO ONE (22:15)
--- NOTE | 2017-01-30 22:42 | HHI.PR ---
Subjective Remarks Patient seen today around 1 PM. Reports that pain in legs is improving. He denies any chest pain or shortness of breath. He reports history of spinal stenosis. Reports that when he looks up he loses all strength, and also reports constant sharp back pain with walking, with occasional weakness in right leg. He does report chronic shortness of breath with exertion, however denies any exertional chest pain or history of coronary artery disease Objective Vital Signs Date Time Temp Pulse Resp B/P Pulse Ox O2 Delivery O2 Flow Rate FiO2 01/30/17 20:34 98.1 99 20 105/59 95 01/30/17 16:00 98.7 90 20 100/55 92 01/30/17 13:47 18 01/30/17 12:27 98.0 89 18 150/65 97 01/30/17 12:00 98.0 89 18 151/65 01/30/17 08:45 100 16 110/60 01/30/17 08:00 98.9 106 18 104/62 96 01/30/17 04:00 98.5 94 20 110/69 94 01/30/17 00:00 99.6 95 20 103/72 98 01/29/17 23:00 98.8 90 20 100/70 92 I/O 01/29/17 01/29/17 01/29/17 01/30/17 01/30/17 01/30/17 06:59 14:59 22:59 06:59 14:59 22:59 Intake Total 720 ml 2277 ml Output Total 850 ml Balance 720 ml 1427 ml Intake Oral 720 ml 610 ml IV Total 1667 ml Output Urine Total 850 ml # Voids 1 # Bowel Movements 0 Result Diagram: 01/30/17 0639 01/30/17 0639 Imaging Last Impressions Lumbar Spine MRI 01/30/17 0000 Signed Impressions: Service Date/Time: Monday, January 30, 2017 18:55 - CONCLUSION: 1. Moderate left-sided protrusion at L1-2 with extruded component abutting the left L3 nerve root lateral recess there is narrowing of the lateral recess. 2. Mild broad-based disc bulge at L2-3 and L5-S1 levels without canal stenosis. 3. Moderate broad-based disc bulge more eccentric to left at L3-4 causing mild canal stenosis. 4. Moderate broad-based extrusion marked eccentric to the right at L4-5 and conjunction with a synovial cyst arising from the right facet causes moderate/severe canal stenosis. Juan Cartagena MD Head CT 01/29/171932 Signed Impressions: Service Date/Time: Sunday, January 29, 2017 19:49 - CONCLUSION: No acute disease. Dewey Castellon MD FACR Cervical Spine CT 01/29/171932 Signed Impressions: Service Date/Time: Sunday, January 29, 2017 19:49 - CONCLUSION: Extensive degenerative changes are present. Significant spinal stenosis is present from mid C4 to mid C7. There is no evidence for fracture. Dewey Castellon MD FACR Chest X-Ray 01/29/171928 Signed Impressions: Service Date/Time: Sunday, January 29, 2017 19:43 - CONCLUSION: Compensated cardiomegaly otherwise negative Dewey Castellon MD FACR Lower Extremity Ultrasound 01/29/171927 Signed Impressions: Service Date/Time: Sunday, January 29, 2017 20:11 - CONCLUSION: Negative for deep venous thrombosis.. Dewey Castellon MD FACR Objective Remarks GENERAL:patient sitting up in bed. Appears comfortable. Alert and oriented 3. SKIN: Warm and dry. HEAD: Normocephalic. EYES: No scleral icterus. No injection or drainage. NECK: Supple, trachea midline. No JVD. CARDIOVASCULAR: Regular rate and rhythm without murmurs, gallops, or rubs. RESPIRATORY: Breath sounds equal bilaterally. No accessory muscle use. GASTROINTESTINAL: Abdomen soft, non-tender, nondistended. MUSCULOSKELETAL: No cyanosis. +2 bilateral lower extremity edema.erythema bilateral ankles with dressing intact. BACK: Nontender without obvious deformity. No CVA tenderness. A/P Assessment and Plan //Sepsis //Bilateral lower extremity cellulitis //Suspected bilateral lower extremity neurogenic edema. -Tachycardia, leukocytosis, lactic acidosis on admission. Lactic acid improved -Continue broad-spectrum antibiotics. -Elevate extremities. Erythema bilateral lower extremities -Follow up cultures //Severe cervical and lumbar stenosis. acute on chronic -Known history of spinal stenosis, however with worsening. Unable to walk with physical therapy here. -MRI ordered. Close monitoring. Neurosurgery consult. Appreciate assistance. //Atrial fibrillation. With RVR on admission. -RVR has improved Rate control with metoprolol, diltiazem. -Anticoagulation with Coumadin. No history of stroke. //Appropriateness for spinal surgery. Patient denies any exertional chest pain. Was self-sufficient in ADLs prior to recent fall. Denies any history of coronary artery disease, although does have atrial fibrillation, obesity. Patient has an above average risk for any complication, calculated at 4.3%, However is medically optimized. Risk factors-Obesity, atrial fibrillation, chronic kidney disease stage III. Admission for bilateral lower extremity cellulitis which is improving. Will need INR reversed prior to any surgical procedure. //Chronic kidney disease. Creatinine 1.8 on admission, improved. Continue to monitor. Continue IV fluids. //Recent fall prior to admission. CT head negative. Spinal stenosis as above. //DVT prophylaxis. On Coumadin. Will be reversed for surgery. Discharge Planning patient will need surgery for spinal stenosis. Will likely need inpatient rehabilitation. Vinny Rodriguez MD January 30, 2017 22:42
[2017-01-31 00:21] VITALS: BP 136/60; PULSE 98; RESP 18; TEMP 98.2; O2SAT 97
[2017-01-31] MEDS: SODIUM CHLOR 0.9% 1000 ML INJ 1,000 ML IV SCH ×2 (02:57→08:56)
[2017-01-31 04:00] VITALS: BP 130/64; PULSE 97; RESP 18; TEMP 97.9; O2SAT 96
[2017-01-31] MEDS: CEFEPIME INJ 2,000 MG in SODIUM CHLORIDE 0.9% INJ 100 ML IV SCH ×3 (05:17→21:42)
[2017-01-31] MEDS: VANCOMYCIN INJ 2,000 MG in SODIUM CHLORID 0.9% 500 ML INJ 500 ML IV SCH (06:15)
[2017-01-31 07:39] LABS: INTERNATIONAL NORMALIZED RATIO 1.8 RATIO; PROTHROMBIN TIME - PATIENT 19.9 SEC (9.8-11.6)
[2017-01-31 07:43] LABS: AUTOMATED NEUTROPHIL # 8.8 TH/MM3 (1.8-7.7); BASOPHIL # 0.1 TH/MM3 (0-0.2); BASOPHIL % 0.7 % (0.0-2.0); EOSINOPHIL # 0.1 TH/MM3 (0-0.4); EOSINOPHIL % 0.6 % (0.0-4.0); HEMATOCRIT 43.1 % (39.0-51.0); HEMO FLAGS DIFF FINAL; LYMPH % 6.3 % (9.0-44.0); LYMPHOCYTE # 0.7 TH/MM3 (1.0-4.8); MEAN CELL VOLUME 93.7 FL (80.0-100.0); MEAN CORPUSCULAR HEMOGLOBIN 30.9 PG (27.0-34.0); MONO % 13.2 % (0.0-8.0); NEUT % 79.2 % (16.0-70.0); PLATELET COUNT 390 TH/MM3 (150-450); RED CELL DISTRIBUTION WIDTH 15.3 % (11.6-17.2); WHITE BLOOD COUNT 11.1 TH/MM3 (4.0-11.0)
[2017-01-31 07:46] LABS: POTASSIUM 3.5 MEQ/L (3.5-5.1)
[2017-01-31 08:00] VITALS: BP 130/59; PULSE 97; RESP 20; TEMP 97.4; O2SAT 96
[2017-01-31] MEDS: BUMETANIDE 1 MG TAB PO SCH (08:55)
[2017-01-31] MEDS: DILTIAZEM-CD 300 MG CAP ER PO SCH (08:55)
[2017-01-31] MEDS: SODIUM CHLORIDE 0.9% FLUSH 10 ML FLUSH IV FLUSH SCH ×2 (08:56→21:41)
[2017-01-31] MEDS: FAMOTIDINE 20 MG TAB PO SCH ×2 (08:56→21:41)
[2017-01-31] MEDS: METOPROLOL TARTRATE 50 MG TAB PO SCH ×3 (08:56→17:08)
[2017-01-31] MEDS: ACETAMINOPHEN/HYDROcodone 325 MG/5 MG TAB PO PRN ×2 (09:06→19:05)
--- NOTE | 2017-01-31 11:01 | HHI.NSPN ---
(Nato Alarcon Emily KIM) Note Status Status: Progress Note (Nato Alarcon) Interval History Interval History 01/30: 81-year-old male who states that he has a history of lumbar stenosis with at least several months of low back pain with ambulation. However he denies any pain weakness or numbness in the lower extremities prior to this past , 01/26/17. He states that he sometimes uses his 's cane or walker to ambulate, but states that this is due to low back pain not to gait unsteadiness. He did have 3 epidural steroid injections recently, with the last injection approximately 4 weeks ago. He states that the injections did not help the low back pain. He has a history of prostate cancer status post prostatectomy and radiation, but denies any recent or chronic problems with his bowel or bladder function. Mr. Shea states that this past , 01/26/2017, he was in his kitchen and his leg suddenly went out on him. He was not able to get up, and laid on the floor for a couple of hours until he could crawl over to the phone and call for help. A friend or neighbor came to help him. He stated that overnight and the next morning he states that he felt reasonably well and he was able to get up and go shopping that day. He did well until Monday night, 01/29/17 when he was at home in his legs again went out on him suddenly. This time he came to the emergency room. He states that also since 01/26/17 he is noted new onset of edema and erythema in his distal lower extremities. He usually does have some swelling and some skin changes in the legs, but not the extent that he has noted over the past few days. He does complain of rather chronic numbness in the hands which she attributes to arthritis. He does not complain of any pain or weakness in the upper extremities or significant loss of coordination. 01/31: The patient states that he is doing good this morning. He does have some back pain. He states the problem is with his legs. He feels the swelling is slightly better but not as much as he had hoped. His major emphasis was that he lives alone and came to the hospital on not expecting to be admitted. He wants to be discharged so that he may go home. (Nato Alarcon) Labs, Micro, & Vital Signs Results Allergies Coded Allergies Type Severity Reaction Last Updated Verified Sulfa Allergy Severe 10/17/16 Yes Tetanus Immune Globulin Allergy Severe Swelling 10/17/16 Yes Recent Impressions Lumbar Spine MRI 01/30/17 0000 Signed Impressions: Service Date/Time: Monday, January 30, 2017 18:55 - CONCLUSION: 1. Moderate left-sided protrusion at L1-2 with extruded component abutting the left L3 nerve root lateral recess there is narrowing of the lateral recess. 2. Mild broad-based disc bulge at L2-3 and L5-S1 levels without canal stenosis. 3. Moderate broad-based disc bulge more eccentric to left at L3-4 causing mild canal stenosis. 4. Moderate broad-based extrusion marked eccentric to the right at L4-5 and conjunction with a synovial cyst arising from the right facet causes moderate/severe canal stenosis. Juan Cartagena MD Head CT 01/29/171932 Signed Impressions: Service Date/Time: Sunday, January 29, 2017 19:49 - CONCLUSION: No acute disease. Dewey Castellon MD FACR Cervical Spine CT 01/29/171932 Signed Impressions: Service Date/Time: Sunday, January 29, 2017 19:49 - CONCLUSION: Extensive degenerative changes are present. Significant spinal stenosis is present from mid C4 to mid C7. There is no evidence for fracture. Dewey Castellon MD FACR Chest X-Ray 01/29/171928 Signed Impressions: Service Date/Time: Sunday, January 29, 2017 19:43 - CONCLUSION: Compensated cardiomegaly otherwise negative Dewey Castellon MD FACR Lower Extremity Ultrasound 01/29/171927 Signed Impressions: Service Date/Time: Sunday, January 29, 2017 20:11 - CONCLUSION: Negative for deep venous thrombosis.. Dewey Castellon MD FACR //175////175// 06:00 18:00 06:00 18:00 06:00 18:00 Intake Total 720 ml 2277 ml 1238 ml Output Total 850 ml 1100 ml 500 ml Balance 720 ml 1427 ml 138 ml -500 ml Intake Oral 720 ml 610 ml IV Total 1667 ml 1238 ml Output Urine Total 850 ml 1100 ml 500 ml Bladder Scan Volume Amount 51 ml # Voids 1 1 # Bowel Movements 0 0 Laboratory Tests Test 01/29/17 01/29/17 01/29/17 01/30/17 19:15 19:39 22:15 06:39 White Blood Count 16.4 TH/MM3 11.8 TH/MM3 Red Blood Count 5.27 MIL/MM3 4.45 MIL/MM3 Hemoglobin 16.3 GM/DL 13.7 GM/DL Hematocrit 48.9 % 41.2 % Mean Corpuscular Volume 92.8 FL 92.6 FL Mean Corpuscular Hemoglobin 30.9 PG 30.9 PG Mean Corpuscular Hemoglobin 33.3 % 33.3 % Concent Red Cell Distribution Width 14.7 % 15.2 % Platelet Count 565 TH/MM3 427 TH/MM3 Mean Platelet Volume 7.9 FL 7.6 FL Neutrophils (%) (Auto) 85.6 % 83.1 % Lymphocytes (%) (Auto) 4.1 % 7.4 % Monocytes (%) (Auto) 8.8 % 9.1 % Eosinophils (%) (Auto) 0.3 % 0.2 % Basophils (%) (Auto) 1.2 % 0.2 % Neutrophils # (Auto) 14.1 TH/MM3 9.8 TH/MM3 Lymphocytes # (Auto) 0.7 TH/MM3 0.9 TH/MM3 Monocytes # (Auto) 1.4 TH/MM3 1.1 TH/MM3 Eosinophils # (Auto) 0.0 TH/MM3 0.0 TH/MM3 Basophils # (Auto) 0.2 TH/MM3 0.0 TH/MM3 CBC Comment DIFF FINAL DIFF FINAL Differential Comment Prothrombin Time 18.6 SEC 25.0 SEC Prothromb Time International 1.6 RATIO 2.2 RATIO Ratio Activated Partial 35.7 SEC Thromboplast Time Sodium Level 134 MEQ/L 138 MEQ/L Potassium Level 3.9 MEQ/L 4.3 MEQ/L Chloride Level 93 MEQ/L 99 MEQ/L Carbon Dioxide Level 30.2 MEQ/L 33.9 MEQ/L Anion Gap 11 MEQ/L 5 MEQ/L Blood Urea Nitrogen 36 MG/DL 28 MG/DL Creatinine 1.80 MG/DL 1.31 MG/DL Estimat Glomerular Filtration 37 ML/MIN 53 ML/MIN Rate Random Glucose 124 MG/DL 130 MG/DL Calcium Level 9.1 MG/DL 8.6 MG/DL Total Bilirubin 1.1 MG/DL 0.9 MG/DL Aspartate Amino Transf 27 U/L 20 U/L (AST/SGOT) Alanine Aminotransferase 36 U/L 27 U/L (ALT/SGPT) Alkaline Phosphatase 130 U/L 100 U/L Total Creatine Kinase 81 U/L Troponin I LESS THAN 0.02 NG/ML C-Reactive Protein 9.90 MG/DL B-Type Natriuretic Peptide 50 PG/ML Total Protein 7.7 GM/DL 6.0 GM/DL Albumin 2.9 GM/DL 2.3 GM/DL Lactic Acid Level 3.4 mmol/L 2.2 mmol/L 1.6 mmol/L Test 01/31/17 06:45 White Blood Count 11.1 TH/MM3 Red Blood Count 4.60 MIL/MM3 Hemoglobin 14.2 GM/DL Hematocrit 43.1 % Mean Corpuscular Volume 93.7 FL Mean Corpuscular Hemoglobin 30.9 PG Mean Corpuscular Hemoglobin 33.0 % Concent Red Cell Distribution Width 15.3 % Platelet Count 390 TH/MM3 Mean Platelet Volume 7.6 FL Neutrophils (%) (Auto) 79.2 % Lymphocytes (%) (Auto) 6.3 % Monocytes (%) (Auto) 13.2 % Eosinophils (%) (Auto) 0.6 % Basophils (%) (Auto) 0.7 % Neutrophils # (Auto) 8.8 TH/MM3 Lymphocytes # (Auto) 0.7 TH/MM3 Monocytes # (Auto) 1.5 TH/MM3 Eosinophils # (Auto) 0.1 TH/MM3 Basophils # (Auto) 0.1 TH/MM3 CBC Comment DIFF FINAL Differential Comment Erythrocyte Sedimentation Rate 66 mm/hr Prothrombin Time 19.9 SEC Prothromb Time International 1.8 RATIO Ratio Sodium Level 139 MEQ/L Potassium Level 3.5 MEQ/L Chloride Level 103 MEQ/L Carbon Dioxide Level 28.0 MEQ/L Anion Gap 8 MEQ/L Blood Urea Nitrogen 21 MG/DL Creatinine 1.02 MG/DL Estimat Glomerular Filtration 70 ML/MIN Rate Random Glucose 107 MG/DL Calcium Level 8.6 MG/DL Constitutional Vital Signs Date Time Temp Pulse Resp B/P Pulse Ox O2 Delivery O2 Flow Rate FiO2 01/31/17 08:00 97.4 97 20 130/59 96 01/31/17 04:00 97.9 97 18 130/64 96 01/31/17 00:21 98.2 98 18 136/60 97 01/30/17 20:34 98.1 99 20 105/59 95 01/30/17 20:15 101 01/30/17 16:00 98.7 90 20 100/55 92 01/30/17 13:47 18 01/30/17 12:27 98.0 89 18 150/65 97 01/30/17 12:00 98.0 89 18 151/65 01/31/17 07:00 Intake Total 3515 ml Output Total 2450 ml Balance 1065 ml (Nato Alarcon) Review of Systems/Exam ROS Constitutional: Patient denies any fever or chills. Respiratory: Patient denies any shortness of breath except with exertion, as well as any productive cough. Cardiovascular: Patient does have shortness of breath with extertion. He denies any chest pain, palpitations or irregular heart beat. Gastrointestinal: Patient denies any abdominal pain, nausea, vomiting or bowel incontinence. Genitourinary: Patient does complain of urinary urgency. He denies any bladder incontinence. Musculoskeletal: Patient complains of back pain and swelling to both lower legs. He denies any neck pain. Neurologic: Patient denies any headache, dizziness, numbness, tingling or localised weakness. Exam GENERAL: Moderately obese gentleman in no apparent distress. SKIN: Significant erythema, edema & warmth in the distal lower extremities. Dry scaling skin in the calves and feet. He has dressings in place on lower extremity wounds at the distal calves and ankles. Multiple ecchymotic areas to all extremities ages indeterminate. HEAD: Atraumatic. Normocephalic. CARDIOVASCULAR: S1S2 w/irregular rhythm w/o M/G/R, radial pulses 2+, cap refill < 2 sec, pitting edema to left lower leg and 2+ edema to right. RESPIRATORY: CTAB w/o W/R/R, equal excursion, non-laboured, on RA. GASTROINTESTINAL: Abdomen moderately distended, non-tender, positive bowel sounds. MUSCULOSKELETAL: Extremities NTTP, see SKIN above. NEUROLOGICAL: AAOx3 Speech is clear & appropriate Follows simple commands well Sensation is intact to light touch in all extremities Strength normal major flexion and extension groups all extremities except for mild decreased right triceps and hand intrinsics (Nato Alarcon) Medications Current Medications Current Medications Medications (Trade) Dose Ordered Sig/Сергей Route Start Time Stop Time Status Last Admin Pharmacy Profile Note 0 ml @ 0 mls/hr UNSCH OTHER 01/29/17 21:00 (NS 1000 ml Inj) 1,000 ml @ 100 mls/hr Q10H IV 01/29/17 20:57 01/31/17 08:56 (NS Flush) 2 ml UNSCH PRN IV FLUSH 01/29/17 21:00 (NS Flush) 2 ml BID IV FLUSH 01/29/17 21:00 01/31/17 08:56 (Zofran Inj) 4 mg Q6H PRN IVP 01/29/17 21:00 (Dulcolax Supp) 10 mg DAILY PRN RECTAL 01/29/17 21:00 (Tylenol) 650 mg Q6H PRN PO 01/29/17 21:00 ([place] 5-325 Mg) 1 tab Q4H PRN PO 01/29/17 21:00 01/31/17 09:06 (Morphine Inj) 2 mg Q3H PRN IV 01/29/17 21:00 (Cardizem Cd) 300 mg DAILY PO 01/30/17 09:00 01/31/17 08:55 (Lopressor) 50 mg TID PO 01/30/17 09:00 01/31/17 08:56 (Pepcid) 20 mg BID PO 01/29/17 21:00 01/31/17 08:56 Bumetanide 2 mg 2 mg DAILY PO 01/30/17 09:00 01/31/17 08:55 (Vancomycin Inj/ NS 500 ml Inj) 520 ml @ 250 mls/hr Q18H IV 01/30/17 12:00 01/31/17 06:15 Miscellaneous Information SPECIFIC LAB TO BE DRAWN: VANCOMYCIN TROUGH DATE TO... ONCE ONCE .XX 02/02/17 11:45 02/02/17 11:46 (Maxipime Inj/NS Inj) 100 ml @ 200 mls/hr Q8HR IV 01/31/17 06:00 01/31/17 05:17 (Coumadin) 2.5 mg DAILY@16 PO 01/31/17 16:00 (Nato Alarcon) Medical Decision Making MDM Remarks Impression: 1. Lumbar spondylosis and degenerative disc disease with moderately severe L4 5 stenosis, partially secondary to synovial cyst formation, as well as significant L1-2 stenosis 2. Cervical stenosis. Possible myelopathy 3. Recent episodes of acute onset paraparesis. Presently his lower extremity strength is within normal limits. However no definite evidence of cauda equina syndrome on examination although he is at risk for development of it or radiculopathy. No post void residual on bladder scan this morning per patient Staph aureus wound infection per wound culture (Nato Alarcon) Plan Plan Remarks MRI cervical spine Continue physical therapy Recommend surgical intervention for the lumbar stenosis Will need medical clearance prior to any surgery (Nato Alarcon) Attending Statement I have personally seen and examined the patient on the date of this note. Pertinent documentation and study results have been reviewed by the undersigned. I have personally developed the treatment plan and performed medical decision making. Agree with findings, exam, and treatment plan as noted above. Cervical spine MRI results reviewed with the patient. Moderately severe cervical stenosis with significant cord compression. 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 Options of conservative treatment versus surgical intervention have been discussed. He feels that his walking has deteriorated significantly. He would like to proceed with surgical intervention on an elective basis. He would like to discharge home if possible so he can take care of some personal affairs. Would like to proceed with surgery on an elective basis. Advised initial decompression of the surgical spine from a posterior approach with laminoplasty followed by a later decompression of the lumbar stenosis. Advised that he will need medical clearance regarding cessation of anticoagulation prior to surgery. (Moses Vargas MD) Nato Alarcon January 31, 2017 11:01 Moses Vargas MD February 01, 2017 20:45 5 stenosis, partially secondary to synovial cyst formation, as well as significant L1-2 stenosis 2. Cervical stenosis. Possible myelopathy 3. Recent episodes of acute onset paraparesis. Presently his lower extremity strength is within normal limits. His MRI this evening reveals a distended bladder. However no definite evidence of cauda equina syndrome on examination. Recommendations: Proceed with MRI cervical spine Continue physical therapy Bladder ultrasound requested this evening with possible [place] catheter placement -discussed with nursing staff and with patient. Discussed need for surgical intervention for the lumbar stenosis with the patient. The risk of developing radiculopathy or cauda equina syndrome discussed. He is anxious to go home, indicating that he came in last evening not anticipated that he would have to stay in the hospital. He states that he lives alone and has some things that he has to take care of. Explained to him the present medical issues which are being treated and evaluated, and he expresses an understanding of the issues involved. We will need to discuss with medicine service regarding the patient's medical clearance for surgery Nato Alarcon January 31, 2017 11:01
[2017-01-31 12:00] VITALS: BP 126/76; PULSE 99; RESP 20; TEMP 97.6; O2SAT 96
--- NOTE | 2017-01-31 13:13 | RADRPT ---
EXAM DATE/TIME: 01/31/2017 11:41 [facility] COMPARISON: No previous studies available for comparison. INDICATIONS : Pain. Inability to ambulate. MEDICAL HISTORY : Carcinoma, prostate. SURGICAL HISTORY : Appendectomy. Prostate surgery. ENCOUNTER: Subsequent ACUITY: 3 day PAIN SCORE: 5/10 LOCATION: neck TECHNIQUE: Multiplanar, multisequence MRI examination of the cervical spine was performed. FINDINGS: VERTEBRAE: Normal vertebral body height. Homogeneous marrow signal. ALIGNMENT: Minimal anterolisthesis C3 on C4 and minimal retrolisthesis C5 on C6 and C6 on C7. CORD: Normal configuration and signal. POST FOSSA: The cerebellar tonsils are normal in position. C2-C3: The thecal sac has a normal configuration. There is no evidence of disc herniation or spinal canal s tenosis. The neural foramina are patent bilaterally. C3-C4: Minimal anterolisthesis. Large right-sided protrusion abuts the right ventral cord and causes moderat e canal stenosis and severe narrowing of the right lateral recess. Severe bilateral neural foraminal narrowing. C4-C5: Moderate broad-based protrusion slightly eccentric to the right abuts the ventral cord and causes mil d/moderate canal stenosis. Moderate to severe bilateral neural foraminal bilaterally. C5-C6: Minimal retrolisthesis. Moderate broad-based protrusion abuts the ventral cord and causes moderate ca nal stenosis. Severe bilateral neural foraminal narrowing. C6-C7: Minimal retrolisthesis. Mild broad-based protrusion abuts ventral cord and causes mild canal stenosis . Moderate to severe bilateral neural foraminal narrowing. C7-T1: Mild broad-based protrusion without canal stenosis. The neural foramina are patent bilaterally. CONCLUSION: 1. Multilevel protrusions as described above but more prominent at C3-4, C4-5 and C5-6 levels. 2. Minimal anterolisthesis C3 on C4 and minimal retrolisthesis C5 on C6 and C6 on C7. Juan Cartagena MD on January 31, 2017 at 12:57 Board Certified Radiologist. This report was verified electronically.
--- NOTE | 2017-01-31 15:48 | EKG ---
Date Performed: 01/29/2017 Time Performed: 19:29:03 PTAGE: 81 years EKG: ATRIAL FIBRILLATION WITH RAPID VENTRICULAR RESPONSE WITH ABERRANT CONDUCTION OR VENTRICULAR PREMATURE COMPLEXES Compared to the previous tracing there now appears to be atrial fibrillation and there is still rapid heart rate present ABNORMAL RHYTHM ECG PREVIOUS TRACING : 10/22/1999 11.55 DOCTOR: Williams Avendaño Interpretating Date/Time 01/31/2017 15:47:39
[2017-01-31 16:00] VITALS: BP 120/63; PULSE 94; RESP 20; TEMP 97.8; O2SAT 96
[2017-01-31] MEDS: WARFARIN SOD 2.5 MG TAB PO SCH (17:04)
[2017-01-31 20:00] VITALS: BP 123/92; PULSE 92; RESP 18; TEMP 97.6; O2SAT 96
--- NOTE | 2017-01-31 20:34 | RADRPT ---
EXAM DATE/TIME: 01/31/2017 20:04 [facility] COMPARISON: No previous studies available for comparison. INDICATIONS : Right tibia pain, swelling, and redness. MEDICAL HISTORY : None. SURGICAL HISTORY : None. ENCOUNTER: Initial ACUITY: 2 months PAIN SCORE: 9/10 LOCATION: Right distal tibia. FINDINGS: Two view examination of the right tibia demonstrates no evidence of fracture or dislocation. Bony mi neralization is normal. The soft tissue structures are swollen. CONCLUSION: 1. No acute bony abnormality. Soft tissue swelling at the right leg and ankle. Cristiano Leonard MD on January 31, 2017 at 20:30 Board Certified Radiologist. This report was verified electronically.
--- NOTE | 2017-01-31 22:58 | HHI.PR ---
Subjective Remarks Patient seen today around 2 PM. He reports that pain in bilateral ankles is improving slightly. Denies any chest pain or shortness of breath. Denies any nausea or vomiting. Objective Vital Signs Date Time Temp Pulse Resp B/P Pulse Ox O2 Delivery O2 Flow Rate FiO2 01/31/17 20:00 97.6 92 18 123/92 96 01/31/17 16:00 97.8 94 20 120/63 96 01/31/17 12:00 97.6 99 20 126/76 96 01/31/17 08:00 97.4 97 20 130/59 96 01/31/17 04:00 97.9 97 18 130/64 96 01/31/17 00:21 98.2 98 18 136/60 97 I/O 01/30/17 01/30/17 01/30/17 01/31/17 01/31/17 01/31/17 07:00 15:00 23:00 07:00 15:00 23:00 Intake Total 720 ml 2277 ml 456 ml 782 ml 360 ml Output Total 850 ml 1100 ml 500 ml 775 ml Balance 720 ml 1427 ml -644 ml 282 ml -415 ml Intake Oral 720 ml 610 ml 360 ml IV Total 1667 ml 456 ml 782 ml Output Urine Total 850 ml 1100 ml 500 ml 775 ml Bladder Scan Volume Amount 51 ml # Voids 1 1 # Bowel Movements 0 0 0 Result Diagram: 01/31/1745 01/31/17644 Objective Remarks GENERAL:patient sitting up in bed. Appears comfortable. Alert and oriented 3. SKIN: Warm and dry. HEAD: Normocephalic. EYES: No scleral icterus. No injection or drainage. NECK: Supple, trachea midline. No JVD. CARDIOVASCULAR: Regular rate and rhythm without murmurs, gallops, or rubs. RESPIRATORY: Breath sounds equal bilaterally. No accessory muscle use. GASTROINTESTINAL: Abdomen soft, non-tender, nondistended. MUSCULOSKELETAL: No cyanosis. +2 bilateral lower extremity edema.erythema bilateral ankleswith minimal improvement today.. right ankle with very minimal improvement. Good pedal pulses underneath edema. Anterior narayan 2.5 x 2.5 stage II, possibly stage III ulcer with surrounding erythema. BACK: Nontender without obvious deformity. No CVA tenderness. A/P Assessment and Plan //Sepsis //Bilateral lower extremity cellulitis //Suspected bilateral lower extremity neurogenic edema. -Tachycardia, leukocytosis, lactic acidosis on admission. Lactic acid improved -Continue broad-spectrum antibiotics. -Elevate extremities. Erythema bilateral lower extremities -cultures with gram-negative rods, staph aureus. Continue antibiotics as ordered for now. Further sensitivities of gram-negative alison pending. not improving as expected. X-ray right lower leg ordered to evaluate for possible osteomyelitis. ESR in the 60s. Continue antibiotics. Consult ID. //Severe cervical and lumbar stenosis. acute on chronic -Known history of spinal stenosis, however with worsening. Unable to walk with physical therapy here. -MRI ordered. Close monitoring. Neurosurgery consult. Appreciate assistance. //Atrial fibrillation. With RVR on admission. -RVR has improved Rate control with metoprolol, diltiazem. -Anticoagulation with Coumadin. No history of stroke. //Appropriateness for spinal surgery. Patient denies any exertional chest pain. Was self-sufficient in ADLs prior to recent fall. Denies any history of coronary artery disease, although does have atrial fibrillation, obesity. Patient has an above average risk for any complication, calculated at 4.3%, However is medically optimized. Risk factors-Obesity, atrial fibrillation, chronic kidney disease stage III. Admission for bilateral lower extremity cellulitis which is improving. Will need INR reversed prior to any surgical procedure. //Chronic kidney disease. Creatinine 1.8 on admission, improved. Continue to monitor. Continue IV fluids. //Recent fall prior to admission. CT head negative. Spinal stenosis as above. //DVT prophylaxis. On Coumadin. Will be reversed for surgery. Discharge Planning patient will need surgery for spinal stenosis. pending further improvement of right lower extremity cellulitis. -Patient has no history of ischemic heart disease or exertional chest pain, and is clear surgery. -Will likely need inpatient rehabilitation. Vinny Rodriguez MD January 31, 2017 22:58
[2017-02-01] VITALS (7 sets, daily range): BP systolic 124–143; BP diastolic 63–72; PULSE 65–118; RESP 16–20; TEMP 97.7–98.3; O2SAT 93–98
[2017-02-01] MEDS: VANCOMYCIN INJ 2,000 MG in SODIUM CHLORID 0.9% 500 ML INJ 500 ML IV SCH (00:43)
[2017-02-01] MEDS: CEFEPIME INJ 2,000 MG in SODIUM CHLORIDE 0.9% INJ 100 ML IV SCH ×2 (06:03→12:27)
[2017-02-01] MEDS: ACETAMINOPHEN/HYDROcodone 325 MG/5 MG TAB PO PRN ×2 (06:04→23:17)
[2017-02-01 06:48] LABS: AUTOMATED NEUTROPHIL # 8.9 TH/MM3 (1.8-7.7); BASOPHIL % 0.3 % (0.0-2.0); EOSINOPHIL # 0.1 TH/MM3 (0-0.4); EOSINOPHIL % 0.8 % (0.0-4.0); HEMATOCRIT 41.5 % (39.0-51.0); HEMO FLAGS DIFF FINAL; LYMPH % 7.3 % (9.0-44.0); LYMPHOCYTE # 0.8 TH/MM3 (1.0-4.8); MEAN CELL VOLUME 93.3 FL (80.0-100.0); MEAN CORPUSCULAR HEMOGLOBIN 32.1 PG (27.0-34.0); MEAN CORPUSCULAR HGB CONC 34.4 % (32.0-36.0); MONO % 9.3 % (0.0-8.0); NEUT % 82.3 % (16.0-70.0); PLATELET COUNT 503 TH/MM3 (150-450); RED BLOOD COUNT 4.45 MIL/MM3 (4.50-5.90); RED CELL DISTRIBUTION WIDTH 15.2 % (11.6-17.2); WHITE BLOOD COUNT 10.9 TH/MM3 (4.0-11.0)
[2017-02-01 07:00] LABS: INTERNATIONAL NORMALIZED RATIO 1.2 RATIO; PROTHROMBIN TIME - PATIENT 13.5 SEC (9.8-11.6)
[2017-02-01 07:08] LABS: BICARBONATE 29.9 MEQ/L (21.0-32.0); MAGNESIUM 2.5 MG/DL (1.5-2.5); POTASSIUM 4.2 MEQ/L (3.5-5.1)
[2017-02-01] MEDS: FAMOTIDINE 20 MG TAB PO SCH ×2 (08:54→23:00)
[2017-02-01] MEDS: BUMETANIDE 1 MG TAB PO SCH (08:54)
[2017-02-01] MEDS: SODIUM CHLORIDE 0.9% FLUSH 10 ML FLUSH IV FLUSH SCH ×2 (08:54→23:00)
[2017-02-01] MEDS: SODIUM CHLOR 0.9% 1000 ML INJ 1,000 ML IV SCH (08:54)
[2017-02-01] MEDS: METOPROLOL TARTRATE 50 MG TAB PO SCH ×3 (08:54→17:17)
[2017-02-01] MEDS: DILTIAZEM-CD 300 MG CAP ER PO SCH (08:54)
--- NOTE | 2017-02-01 12:21 | HHI.NSPN ---
(Nato Alarcon Emily KIM) Note Status Status: Progress Note (Nato Alarcon) Interval History Interval History 01/30: 81-year-old male who states that he has a history of lumbar stenosis with at least several months of low back pain with ambulation. However he denies any pain weakness or numbness in the lower extremities prior to this past , 01/26/17. He states that he sometimes uses his 's cane or walker to ambulate, but states that this is due to low back pain not to gait unsteadiness. He did have 3 epidural steroid injections recently, with the last injection approximately 4 weeks ago. He states that the injections did not help the low back pain. He has a history of prostate cancer status post prostatectomy and radiation, but denies any recent or chronic problems with his bowel or bladder function. Mr. Shea states that this past , 01/26/2017, he was in his kitchen and his leg suddenly went out on him. He was not able to get up, and laid on the floor for a couple of hours until he could crawl over to the phone and call for help. A friend or neighbor came to help him. He stated that overnight and the next morning he states that he felt reasonably well and he was able to get up and go shopping that day. He did well until Monday night, 01/29/17 when he was at home in his legs again went out on him suddenly. This time he came to the emergency room. He states that also since 01/26/17 he is noted new onset of edema and erythema in his distal lower extremities. He usually does have some swelling and some skin changes in the legs, but not the extent that he has noted over the past few days. He does complain of rather chronic numbness in the hands which she attributes to arthritis. He does not complain of any pain or weakness in the upper extremities or significant loss of coordination. 01/31: The patient states that he is doing good this morning. He does have some back pain. He states the problem is with his legs. He feels the swelling is slightly better but not as much as he had hoped. His major emphasis was that he lives alone and came to the hospital on not expecting to be admitted. He wants to be discharged so that he may go home. 02/01: The patient was doing good this morning when seen. He didn't have any complaints other than wanting to go home. He wants therapy so that he may be able to get up and walk and then take a taxi home. He wants to go back to his house and check on things and come back for his surgery. (Nato Alarcon) Labs, Micro, & Vital Signs Results Allergies Coded Allergies Type Severity Reaction Last Updated Verified Sulfa Allergy Severe 10/17/16 Yes Tetanus Immune Globulin Allergy Severe Swelling 10/17/16 Yes Recent Impressions Tibia/Fibula X-Ray 01/31/17 0000 Signed Impressions: Service Date/Time: Tuesday, January 31, 2017 20:04 - CONCLUSION: 1. No acute bony abnormality. Soft tissue swelling at the right leg and ankle. Cristiano Leonard MD Cervical Spine MRI 01/31/17 0000 Signed Impressions: Service Date/Time: Tuesday, January 31, 2017 11:41 - CONCLUSION: 1. Multilevel protrusions as described above but more prominent at C3-4, C4-5 and C5-6 levels. 2. Minimal anterolisthesis C3 on C4 and minimal retrolisthesis C5 on C6 and C6 on C7. Juan Cartagena MD Lumbar Spine MRI 01/30/17 0000 Signed Impressions: Service Date/Time: Monday, January 30, 2017 18:55 - CONCLUSION: 1. Moderate left-sided protrusion at L1-2 with extruded component abutting the left L3 nerve root lateral recess there is narrowing of the lateral recess. 2. Mild broad-based disc bulge at L2-3 and L5-S1 levels without canal stenosis. 3. Moderate broad-based disc bulge more eccentric to left at L3-4 causing mild canal stenosis. 4. Moderate broad-based extrusion marked eccentric to the right at L4-5 and conjunction with a synovial cyst arising from the right facet causes moderate/severe canal stenosis. Juan Cartagena MD Head CT 01/29/17 1933 Signed Impressions: Service Date/Time: Sunday, January 29, 2017 19:49 - CONCLUSION: No acute disease. Dewey Castellon MD FACR Cervical Spine CT 01/29/171932 Signed Impressions: Service Date/Time: Sunday, January 29, 2017 19:49 - CONCLUSION: Extensive degenerative changes are present. Significant spinal stenosis is present from mid C4 to mid C7. There is no evidence for fracture. Dewey Castellon MD FACR Chest X-Ray 01/29/171928 Signed Impressions: Service Date/Time: Sunday, January 29, 2017 19:43 - CONCLUSION: Compensated cardiomegaly otherwise negative Dewey Castellon MD FACR Lower Extremity Ultrasound 01/29/171927 Signed Impressions: Service Date/Time: Sunday, January 29, 2017 20:11 - CONCLUSION: Negative for deep venous thrombosis.. Dewey Castellon MD FACR //175//175//// 06:00 18:00 06:00 18:00 06:00 18:00 Intake Total 720 ml 2277 ml 1238 ml 360 ml 1647 ml Output Total 850 ml 1100 ml 1275 ml 500 ml Balance 720 ml 1427 ml 138 ml -915 ml 1147 ml Intake Oral 720 ml 610 ml 360 ml 360 ml IV Total 1667 ml 1238 ml 1287 ml Output Urine Total 850 ml 1100 ml 1275 ml 500 ml Bladder Scan Volume Amount 51 ml # Voids 1 1 # Bowel Movements 0 0 0 0 Laboratory Tests Test 01/29/17 01/29/17 01/29/17 01/30/17 19:15 19:39 22:15 06:39 White Blood Count 16.4 TH/MM3 11.8 TH/MM3 Red Blood Count 5.27 MIL/MM3 4.45 MIL/MM3 Hemoglobin 16.3 GM/DL 13.7 GM/DL Hematocrit 48.9 % 41.2 % Mean Corpuscular Volume 92.8 FL 92.6 FL Mean Corpuscular Hemoglobin 30.9 PG 30.9 PG Mean Corpuscular Hemoglobin 33.3 % 33.3 % Concent Red Cell Distribution Width 14.7 % 15.2 % Platelet Count 565 TH/MM3 427 TH/MM3 Mean Platelet Volume 7.9 FL 7.6 FL Neutrophils (%) (Auto) 85.6 % 83.1 % Lymphocytes (%) (Auto) 4.1 % 7.4 % Monocytes (%) (Auto) 8.8 % 9.1 % Eosinophils (%) (Auto) 0.3 % 0.2 % Basophils (%) (Auto) 1.2 % 0.2 % Neutrophils # (Auto) 14.1 TH/MM3 9.8 TH/MM3 Lymphocytes # (Auto) 0.7 TH/MM3 0.9 TH/MM3 Monocytes # (Auto) 1.4 TH/MM3 1.1 TH/MM3 Eosinophils # (Auto) 0.0 TH/MM3 0.0 TH/MM3 Basophils # (Auto) 0.2 TH/MM3 0.0 TH/MM3 CBC Comment DIFF FINAL DIFF FINAL Differential Comment Prothrombin Time 18.6 SEC 25.0 SEC Prothromb Time International 1.6 RATIO 2.2 RATIO Ratio Activated Partial 35.7 SEC Thromboplast Time Sodium Level 134 MEQ/L 138 MEQ/L Potassium Level 3.9 MEQ/L 4.3 MEQ/L Chloride Level 93 MEQ/L 99 MEQ/L Carbon Dioxide Level 30.2 MEQ/L 33.9 MEQ/L Anion Gap 11 MEQ/L 5 MEQ/L Blood Urea Nitrogen 36 MG/DL 28 MG/DL Creatinine 1.80 MG/DL 1.31 MG/DL Estimat Glomerular Filtration 37 ML/MIN 53 ML/MIN Rate Random Glucose 124 MG/DL 130 MG/DL Calcium Level 9.1 MG/DL 8.6 MG/DL Total Bilirubin 1.1 MG/DL 0.9 MG/DL Aspartate Amino Transf 27 U/L 20 U/L (AST/SGOT) Alanine Aminotransferase 36 U/L 27 U/L (ALT/SGPT) Alkaline Phosphatase 130 U/L 100 U/L Total Creatine Kinase 81 U/L Troponin I LESS THAN 0.02 NG/ML C-Reactive Protein 9.90 MG/DL B-Type Natriuretic Peptide 50 PG/ML Total Protein 7.7 GM/DL 6.0 GM/DL Albumin 2.9 GM/DL 2.3 GM/DL Lactic Acid Level 3.4 mmol/L 2.2 mmol/L 1.6 mmol/L Test 01/31/17 02/01/17 06:45 06:17 White Blood Count 11.1 TH/MM3 10.9 TH/MM3 Red Blood Count 4.60 MIL/MM3 4.45 MIL/MM3 Hemoglobin 14.2 GM/DL 14.3 GM/DL Hematocrit 43.1 % 41.5 % Mean Corpuscular Volume 93.7 FL 93.3 FL Mean Corpuscular Hemoglobin 30.9 PG 32.1 PG Mean Corpuscular Hemoglobin 33.0 % 34.4 % Concent Red Cell Distribution Width 15.3 % 15.2 % Platelet Count 390 TH/MM3 503 TH/MM3 Mean Platelet Volume 7.6 FL 7.6 FL Neutrophils (%) (Auto) 79.2 % 82.3 % Lymphocytes (%) (Auto) 6.3 % 7.3 % Monocytes (%) (Auto) 13.2 % 9.3 % Eosinophils (%) (Auto) 0.6 % 0.8 % Basophils (%) (Auto) 0.7 % 0.3 % Neutrophils # (Auto) 8.8 TH/MM3 8.9 TH/MM3 Lymphocytes # (Auto) 0.7 TH/MM3 0.8 TH/MM3 Monocytes # (Auto) 1.5 TH/MM3 1.0 TH/MM3 Eosinophils # (Auto) 0.1 TH/MM3 0.1 TH/MM3 Basophils # (Auto) 0.1 TH/MM3 0.0 TH/MM3 CBC Comment DIFF FINAL DIFF FINAL Differential Comment Erythrocyte Sedimentation Rate 66 mm/hr Prothrombin Time 19.9 SEC 13.5 SEC Prothromb Time International 1.8 RATIO 1.2 RATIO Ratio Sodium Level 139 MEQ/L 142 MEQ/L Potassium Level 3.5 MEQ/L 4.2 MEQ/L Chloride Level 103 MEQ/L 106 MEQ/L Carbon Dioxide Level 28.0 MEQ/L 29.9 MEQ/L Anion Gap 8 MEQ/L 6 MEQ/L Blood Urea Nitrogen 21 MG/DL 20 MG/DL Creatinine 1.02 MG/DL 1.01 MG/DL Estimat Glomerular Filtration 70 ML/MIN 71 ML/MIN Rate Random Glucose 107 MG/DL 125 MG/DL Hemoglobin A1c 6.4 % Calcium Level 8.6 MG/DL 9.2 MG/DL Phosphorus Level 2.5 MG/DL Magnesium Level 2.5 MG/DL Albumin 2.0 GM/DL Constitutional Vital Signs Date Time Temp Pulse Resp B/P Pulse Ox O2 Delivery O2 Flow Rate FiO2 02/01/17 08:00 97.9 118 16 143/69 93 02/01/17 04:00 97.9 86 18 140/65 98 02/01/17 00:00 98.0 65 18 137/63 97 01/31/17 20:00 97.6 92 18 123/92 96 01/31/17 16:00 97.8 94 20 120/63 96 01/31/17 12:00 97.6 99 20 126/76 96 02/01/17 07:00 Intake Total 2007 ml Output Total 1275 ml Balance 732 ml (Nato Alarcon) Review of Systems/Exam ROS Constitutional: Patient denies any fever or chills. Respiratory: Patient denies any shortness of breath or productive cough. Cardiovascular: Patient denies any chest pain, palpitations or irregular heart beat. Gastrointestinal: Patient denies any abdominal pain, nausea, vomiting or bowel incontinence. Genitourinary: Patient denies any bladder incontinence. Musculoskeletal: Patient complains of back pain and swelling to both lower legs. He denies any neck pain. Neurologic: Patient denies any headache, dizziness, numbness, tingling or localised weakness. Exam GENERAL: Moderately obese gentleman in no apparent distress. SKIN: Significant erythema, edema & warmth in the distal lower extremities. Dry scaling skin in the calves and feet. He has dressings in place on lower extremity wounds at the distal calves and ankles. Multiple ecchymotic areas to all extremities ages indeterminate. HEAD: Atraumatic. Normocephalic. CARDIOVASCULAR: S1S2 w/irregular rhythm w/o M/G/R, radial pulses 2+, cap refill < 2 sec, pitting edema to left lower leg and 2+ edema to right. RESPIRATORY: CTAB w/o W/R/R, equal excursion, non-laboured, on RA. GASTROINTESTINAL: Abdomen moderately distended, non-tender, positive bowel sounds. MUSCULOSKELETAL: GIBBONS, extremities NTTP, see SKIN above. NEUROLOGICAL: AAOx3 Speech is clear & appropriate Follows simple commands well Sensation is intact to light touch in all extremities Strength normal major flexion and extension groups all extremities except for mild decreased right triceps (Ntao Alarcon) Medications Current Medications Current Medications Medications (Trade) Dose Ordered Sig/Сергей Route Start Time Stop Time Status Last Admin Pharmacy Profile Note 0 ml @ 0 mls/hr UNSCH OTHER 01/29/17 21:00 (NS 1000 ml Inj) 1,000 ml @ 100 mls/hr Q10H IV 01/29/17 20:57 02/01/17 08:54 (NS Flush) 2 ml UNSCH PRN IV FLUSH 01/29/17 21:00 (NS Flush) 2 ml BID IV FLUSH 01/29/17 21:00 02/01/17 08:54 (Zofran Inj) 4 mg Q6H PRN IVP 01/29/17 21:00 (Dulcolax Supp) 10 mg DAILY PRN RECTAL 01/29/17 21:00 (Tylenol) 650 mg Q6H PRN PO 01/29/17 21:00 ([place] 5-325 Mg) 1 tab Q4H PRN PO 01/29/17 21:00 02/01/17 06:04 (Morphine Inj) 2 mg Q3H PRN IV 01/29/17 21:00 (Cardizem Cd) 300 mg DAILY PO 01/30/17 09:00 02/01/17 08:54 (Lopressor) 50 mg TID PO 01/30/17 09:00 02/01/17 08:54 (Pepcid) 20 mg BID PO 01/29/17 21:00 02/01/17 08:54 Bumetanide 2 mg 2 mg DAILY PO 01/30/17 09:00 02/01/17 08:54 (Vancomycin Inj/ NS 500 ml Inj) 520 ml @ 250 mls/hr Q18H IV 01/30/17 12:00 02/01/17 00:43 Miscellaneous Information SPECIFIC LAB TO BE DRAWN: VANCOMYCIN TROUGH DATE TO... ONCE ONCE .XX 02/02/17 11:45 02/02/17 11:46 (Maxipime Inj/NS Inj) 100 ml @ 200 mls/hr Q8HR IV 01/31/17 06:00 02/01/17 06:03 (Coumadin) 2.5 mg DAILY@16 PO 01/31/17 16:00 01/31/17 17:04 (Nato Alarcon) Medical Decision Making MDM Remarks Impression: 1. Lumbar spondylosis and degenerative disc disease with moderately severe L4 5 stenosis, partially secondary to synovial cyst formation, as well as significant L1-2 stenosis 2. Cervical stenosis. Possible myelopathy 3. Recent episodes of acute onset paraparesis. Presently his lower extremity strength is within normal limits. However no definite evidence of cauda equina syndrome on examination although he is at risk for development of it or radiculopathy. No post void residual on bladder scan per patient Staph aureus wound infection per wound culture , on abx Medicine has cleared patient for surgery on (Nato Alarcon) Plan Plan Remarks Continue physical therapy Recommend surgical intervention for the cervical & lumbar stenosis, will be staged doing the cervical first and come back later and do the lumbar. Patient wants to go home and not pursue surgery this hospitalisation Patient is able to be discharged from NSGY's perspective and be scheduled for surgery at a later date Recommend inpatient rehab although patient is hesitant to the idea, if necessary Home Health for continued PT is an option Continue abx for bilateral lower leg cellulitis Patient will need to be off warfarin for surgery (Nato Alarcon) Attending Statement I have personally seen and examined the patient on the date of this note. Pertinent documentation and study results have been reviewed by the undersigned. I have personally developed the treatment plan and performed medical decision making. Agree with findings, exam, and treatment plan as noted above. Therapy notes reviewed Patient's neurologic exam stable Discussed findings and treatment options again. He would like to discharge home with elective outpatient surgery for the cervical followed by the lumbar spine. Medical notes reviewed regarding management of Coumadin in the perioperative period He may be discharged from for neurosurgical standpoint as long as he is felt safe to ambulate at home from a therapy standpoint. (Moses Vargas MD) Nato Alarcon February 01, 2017 11:57 Moses Vargas MD February 01, 2017 20:46
[2017-02-01] MEDS: WARFARIN SOD 2.5 MG TAB PO SCH (15:38)
--- NOTE | 2017-02-01 17:46 | PD.ID.CON ---
History of Present Illness Service ID Consult Requested By Dr Rodriguez Reason for Consult R LE infection, GNB, staph Primary Care Physician Tremayne Welch M.D. Diagnoses: History of Present Illness 81-year-old male with history of lumbar stenosis admitted on 01/29 with at least several months of low back pain with ambulation. He presented afebrile, but with significant leukocytosis of 16 K and lactic acidosis of 3.4 He was diagnosed with sepsis and started on broad spectrum abx HIs blood clx are negative at 3 days and R annkle wound is growing peng S acinetobacter and MSSA He told me that he got the wound few weeks ago after hitting his narayan over something Since then he has not healed it In the last 1-2 weeks he noticed increasing swelling and redness of BLE more prominent on the R He does hav along h/o BLE swelling , worsening as day progresses He told me that while hisLLE redness and swelling improved nicely, RLE redness and swelling persiss Review of Systems Except as stated in HPI: all other systems reviewed are Neg Past Family Social History Allergies: Coded Allergies: Sulfa (Verified Allergy, Severe, 10/17/16) Tetanus Immune Globulin (Verified Allergy, Severe, Swelling, 10/17/16) Past Medical History History of atrial fibrillation Hypertension Denies diabetes, dyslipidemia, pulmonary disease History of prostate cancer Past Surgical History Prostatectomy followed by radiation for prostate cancer Recent epidural steroid injections Appendectomy Active Ordered Medications Medications where reviewed in EMR Antibiotics Include: cefepime vancomycin Family History His father of a heart attack His mother of cancer Social History No history of cigarette use Drinks alcohol occasionally He lives alone Physical Exam Vital Signs Vital Signs Date Time Temp Pulse Resp B/P Pulse Ox O2 Delivery O2 Flow Rate FiO2 02/01/17 12:00 97.7 87 20 124/69 97 02/01/17 08:00 97.9 118 16 143/69 93 02/01/17 04:00 97.9 86 18 140/65 98 02/01/17 00:00 98.0 65 18 137/63 97 01/31/17 20:00 97.6 92 18 123/92 96 Physical Exam CONSTITUTIONAL/GENERAL: This is an obese male patient, in no apparent distress. TUBES/LINES/DRAINS: SKIN: No jaundice, rashes, Multiple scattered skin lesions. Ecchymoses on upper extremities. R narayan with full thickness skin ulcer anteriorly with small amount of serosang odorless drainage. Cellulitis changes invoving the lower part of the leg from ankle to almost up to the knee Skin temperature appropriate. Not diaphoretic. HEAD: Atraumatic. Normocephalic. EYES: Pupils equal and round and reactive. Extraocular motions intact. No scleral icterus. No injection or drainage. Fundi not examined. ENT: Hearing grossly normal. Nose without bleeding or purulent drainage. Throat without visible erythema, exudates, masses, or lesions. NECK: Trachea midline. Supple, nontender. No palpable thyroid enlargement or nodularity. CARDIOVASCULAR: Regular rate and rhythm without murmurs, gallops, or rubs. No JVD. Peripheral pulses symmetric. RESPIRATORY/CHEST: Symmetric, unlabored respirations. Clear to auscultation. Breath sounds equal bilaterally. No wheezes, rales, or rhonchi. GASTROINTESTINAL: Abdomen soft, non-tender, nondistended. No hepato-splenomegaly , or palpable masses. No guarding. Bowel sounds present. GENITOURINARY: Without palpable bladder distension. MUSCULOSKELETAL: Extremities without clubbing, cyanosis, + chronic BLE edema with prominent tree bark silva and chronic hyperpigmentation changes B/l pedal pulses are palpable LYMPHATICS: No palpable cervical or supraclavicular adenopathy. NEUROLOGICAL: Awake and alert. Motor and sensory grossly within normal limits. Follows commands. normal speech. Moves all extremities. PSYCHIATRIC: No obvious anxiety/depression. no apparent hallucinations or other psychotic thought process. Laboratory Laboratory Tests Test 02/01/17 06:17 White Blood Count 10.9 Red Blood Count 4.45 Hemoglobin 14.3 Hematocrit 41.5 Mean Corpuscular Volume 93.3 Mean Corpuscular Hemoglobin 32.1 Mean Corpuscular Hemoglobin 34.4 Concent Red Cell Distribution Width 15.2 Platelet Count 503 Mean Platelet Volume 7.6 Neutrophils (%) (Auto) 82.3 Lymphocytes (%) (Auto) 7.3 Monocytes (%) (Auto) 9.3 Eosinophils (%) (Auto) 0.8 Basophils (%) (Auto) 0.3 Neutrophils # (Auto) 8.9 Lymphocytes # (Auto) 0.8 Monocytes # (Auto) 1.0 Eosinophils # (Auto) 0.1 Basophils # (Auto) 0.0 CBC Comment DIFF FINAL Differential Comment Prothrombin Time 13.5 Prothromb Time International 1.2 Ratio Sodium Level 142 Potassium Level 4.2 Chloride Level 106 Carbon Dioxide Level 29.9 Anion Gap 6 Blood Urea Nitrogen 20 Creatinine 1.01 Estimat Glomerular Filtration 71 Rate Random Glucose 125 Calcium Level 9.2 Phosphorus Level 2.5 Magnesium Level 2.5 Albumin 2.0 Date/Time Procedure Status Source Growth 01/29/17 19:40 Gram Stain - Final Resulted Wound Leg 01/29/17 19:40 Wound Culture - Preliminary Resulted Acinetobacter Baumannii/Haemol Staphylococcus Aureus 01/29/17 19:30 Aerobic Blood Culture - Preliminary Resulted Blood Peripheral NO GROWTH IN 3 DAYS 01/29/17 19:30 Anaerobic Blood Culture - Preliminary Resulted Blood Peripheral NO GROWTH IN 3 DAYS 01/29/17 19:29 Gram Stain Received Wound Leg Pending 01/29/17 19:29 Wound Culture Received Wound Leg Pending Result Diagram: 02/01/1717 02/01/17 0617 Imaging Last Impressions Tibia/Fibula X-Ray 01/31/17 0000 Signed Impressions: Service Date/Time: Tuesday, January 31, 2017 20:04 - CONCLUSION: 1. No acute bony abnormality. Soft tissue swelling at the right leg and ankle. Cristiano Leonard MD Cervical Spine MRI 01/31/17 0000 Signed Impressions: Service Date/Time: Tuesday, January 31, 2017 11:41 - CONCLUSION: 1. Multilevel protrusions as described above but more prominent at C3-4, C4-5 and C5-6 levels. 2. Minimal anterolisthesis C3 on C4 and minimal retrolisthesis C5 on C6 and C6 on C7. Juan Cartagena MD Lumbar Spine MRI 01/30/17 0000 Signed Impressions: Service Date/Time: Monday, January 30, 2017 18:55 - CONCLUSION: 1. Moderate left-sided protrusion at L1-2 with extruded component abutting the left L3 nerve root lateral recess there is narrowing of the lateral recess. 2. Mild broad-based disc bulge at L2-3 and L5-S1 levels without canal stenosis. 3. Moderate broad-based disc bulge more eccentric to left at L3-4 causing mild canal stenosis. 4. Moderate broad-based extrusion marked eccentric to the right at L4-5 and conjunction with a synovial cyst arising from the right facet causes moderate/severe canal stenosis. Juan Cartagena MD Head CT 01/29/171932 Signed Impressions: Service Date/Time: Sunday, January 29, 2017 19:49 - CONCLUSION: No acute disease. Dewey Castellon MD FACR Cervical Spine CT 01/29/171932 Signed Impressions: Service Date/Time: Sunday, January 29, 2017 19:49 - CONCLUSION: Extensive degenerative changes are present. Significant spinal stenosis is present from mid C4 to mid C7. There is no evidence for fracture. Dewey Castellon MD FACR Chest X-Ray 01/29/171928 Signed Impressions: Service Date/Time: Sunday, January 29, 2017 19:43 - CONCLUSION: Compensated cardiomegaly otherwise negative Dewey Castellon MD FACR Lower Extremity Ultrasound 01/29/171927 Signed Impressions: Service Date/Time: Sunday, January 29, 2017 20:11 - CONCLUSION: Negative for deep venous thrombosis.. Dewey Castellon MD FACR Assessment and Plan Assessment and Plan BLE chronic venostasis RLE cellulitis with small full thickenss ulcer as the most likely port of entry , Infected R narayan ulceration, Acinetobacter, MSSA pOor healing Multiple med problems Underlying diabetes with Hb A1C borderline elevated OK to change abx to Unasyn, and eventually to Augmentin+ levaquine - that will cover both Acinetobacter and MSSA - Rx x 2 weeks - Keep BLE elevated If no healing occus consider vascular w/u , however more liley venous insufficiency and maybe diabetic microangiopathy contributing Discussed Condition With Dr Michael Mueller,Diandra Mendez MD February 01, 2017 17:46
[2017-02-01] MEDS ORDERED: AMOXICILLIN/CLAVULANATE K 500 MG TAB PO SCH (22:00)
[2017-02-01] MEDS: AMPICILLIN-SULBACTAM INJ 3 GM VIAL IM SCH (23:17)
--- NOTE | 2017-02-01 23:53 | HHI.PR ---
Subjective Remarks Patient seen today around 11 AM. He says that bilateral lower extremity pain is slowly improving. He denies any chest pain or shortness of breath. He is discussed with neurosurgery, and is planning to go to rehabilitation, then considering surgical intervention for spinal stenosis afterwards. Objective Vital Signs Date Time Temp Pulse Resp B/P Pulse Ox O2 Delivery O2 Flow Rate FiO2 02/01/17 20:00 98.3 92 18 134/72 96 02/01/17 16:00 97.9 93 20 125/63 97 02/01/17 12:00 97.7 87 20 124/69 97 02/01/17 08:00 97.9 118 16 143/69 93 02/01/17 04:00 97.9 86 18 140/65 98 02/01/17 00:00 98.0 65 18 137/63 97 I/O 01/31/17 01/31/17 01/31/17 02/01/17 02/01/17 02/01/17 07:00 15:00 23:00 07:00 15:00 23:00 Intake Total 782 ml 360 ml 942 ml 705 ml 480 ml Output Total 500 ml 775 ml 400 ml 100 ml 850 ml Balance 282 ml -415 ml 542 ml 605 ml -370 ml Intake Oral 360 ml 240 ml 120 ml 480 ml IV Total 782 ml 702 ml 585 ml Output Urine Total 500 ml 775 ml 400 ml 100 ml 850 ml Bladder Scan Volume Amount 51 ml # Voids 1 # Bowel Movements 0 0 0 Result Diagram: 02/01/1761602/01/17616 Objective Remarks GENERAL:patient sitting up in bed. Appears comfortable. Alert and oriented 3. SKIN: Warm and dry. HEAD: Normocephalic. EYES: No scleral icterus. No injection or drainage. NECK: Supple, trachea midline. No JVD. CARDIOVASCULAR: Regular rate and rhythm without murmurs, gallops, or rubs. RESPIRATORY: Breath sounds equal bilaterally. No accessory muscle use. GASTROINTESTINAL: Abdomen soft, non-tender, nondistended. MUSCULOSKELETAL: No cyanosis. +2 bilateral lower extremity edema.erythema bilateral ankles with minimal improvement today.. right ankle with very slight improvement. Good pedal pulses underneath edema. Anterior narayan 2.5 x 2.5 stage II, possibly stage III ulcer with surrounding erythema. BACK: Nontender without obvious deformity. No CVA tenderness. A/P Assessment and Plan //Sepsis //Bilateral lower extremity cellulitis //Suspected bilateral lower extremity neurogenic edema. -Tachycardia, leukocytosis, lactic acidosis on admission. Lactic acid improved -Continue broad-spectrum antibiotics. -Elevate extremities. Erythema bilateral lower extremities -cultures with gram-negative rods, staph aureus. Continue antibiotics as ordered for now. Further sensitivities of gram-negative alison pending. not improving as expected. X-ray right lower leg ordered to evaluate for possible osteomyelitis. ESR in the 60s. Continue antibiotics. appreciate ID assistance. Continue antibiotics. Currently on Unasyn. //Severe cervical and lumbar stenosis. acute on chronic -Known history of spinal stenosis, however with worsening. Unable to walk with physical therapy here. -neurosurgery plans for intervention as outpatient. //Atrial fibrillation. With RVR on admission. -RVR has improved Rate control with metoprolol, diltiazem. -Anticoagulation with Coumadin. No history of stroke. //Appropriateness for spinal surgery. Patient denies any exertional chest pain. Was self-sufficient in ADLs prior to recent fall. Denies any history of coronary artery disease, although does have atrial fibrillation, obesity. Patient has an above average risk for any complication, calculated at 4.3%, However is medically optimized. Risk factors-Obesity, atrial fibrillation, chronic kidney disease stage III. Admission for bilateral lower extremity cellulitis which is improving. Will need INR reversed prior to any surgical procedure. //Chronic kidney disease. Creatinine 1.8 on admission, improved. Continue to monitor. Continue IV fluids. //Recent fall prior to admission. CT head negative. Spinal stenosis as above. //DVT prophylaxis. On Coumadin. daily Lovenox while subtherapeutic. Discharge Planning patient will need surgery for spinal stenosis. pending further improvement of right lower extremity cellulitis. -Patient has no history of ischemic heart disease or exertional chest pain, and is clear surgery. -Will likely need inpatient rehabilitation. Vinny Rodriguez MD February 01, 2017 23:53
[2017-02-02] VITALS: BP 106/68; PULSE 80; RESP 18; TEMP 98.1; O2SAT 97
[2017-02-02] MEDS: AMPICILLIN-SULBACTAM INJ 3 GM VIAL IM SCH ×2 (03:32→08:00)
[2017-02-02] MEDS: ACETAMINOPHEN/HYDROcodone 325 MG/5 MG TAB PO PRN ×2 (03:36→20:33)
[2017-02-02 04:00] VITALS: BP 138/74; PULSE 95; RESP 18; TEMP 98.2; O2SAT 95
[2017-02-02] MEDS: FAMOTIDINE 20 MG TAB PO SCH ×2 (07:44→20:28)
[2017-02-02] MEDS: METOPROLOL TARTRATE 50 MG TAB PO SCH ×2 (07:44→20:28)
[2017-02-02] MEDS: DILTIAZEM-CD 300 MG CAP ER PO SCH (07:44)
[2017-02-02] MEDS: BUMETANIDE 1 MG TAB PO SCH (07:45)
[2017-02-02] MEDS: ENOXAPARIN SODIUM 40 MG/0.4 ML SYRINGE SQ SCH (07:45)
[2017-02-02] MEDS: SODIUM CHLORIDE 0.9% FLUSH 10 ML FLUSH IV FLUSH SCH ×2 (07:45→20:28)
[2017-02-02 08:00] VITALS: BP 138/76; PULSE 138; RESP 18; TEMP 97.3; O2SAT 96
[2017-02-02] MEDS ORDERED: METOPROLOL TARTRATE 50 MG TAB PO ONE (09:15)
[2017-02-02] MEDS ORDERED: SODIUM CHLOR 0.9% 250 ML INJ 250 ML IV ONE (09:15)
[2017-02-02] MEDS: AMPICILLIN-SULBACTAM INJ 3 GM in SODIUM CHLORIDE 0.9% INJ 100 ML IV SCH ×3 (09:44→20:28)
[2017-02-02] MEDS ORDERED: PHARMACY ORDERED LAB ONE (11:45)
--- NOTE | 2017-02-02 11:58 | MB ---
cc: KOFI NDIAYE DATE OF CONSULTATION 02/02/2017 INDICATION Atrial fibrillation. HISTORY OF PRESENT ILLNESS A 81-year-old gentleman with a history of hypertension, prostate cancer status post prostatectomy and radiation, also has a history of known atrial fibrillation on anticoagulation. He had previously been seen by [facility], Dr. Soares, but has not been over to their office in about three years. He came in with complaint of bilateral lower extremity edema. He was found to have cellulitis and was treated with antibiotics. Lower extremities are negative for DVT. He is on beta leno and calcium channel leno. Initial heart rates were 112-126 beats/minute. Over the course of his hospitalizations, heart rates have been better but earlier this morning he developed again rapid ventricular rate with 130 beats per minute. He is currently chest pain-free and comfortable. PAST MEDICAL HISTORY 1. Hypertension. 2. Prostate cancer. 3. A-fib. 4. Back pain. 5. Spinal stenosis. 6. Appendectomy. ALLERGIES SULFA. TETANUS. FAMILY HISTORY Denies any family history of early coronary artery disease or sudden cardiac . SOCIAL HISTORY Reports occasional alcohol use. Denies any drug use or tobacco use. REVIEW OF SYSTEMS A 12-point review of some was performed, negative unless otherwise noted in the History of Present Illness. PHYSICAL EXAMINATION VITAL SIGNS: Temperature is 97, pulse 138, blood pressure 138/76 mmHg. GENERAL: Alert and oriented x 3, in no acute distress. HEENT: Exam shows pupils reactive to light and accommodation. Extraocular movements are intact. NECK: No elevation in jugular venous distension. No thyromegaly or lymphadenopathy. No carotid bruits. LUNGS: Clear to auscultation bilaterally. CARDIOVASCULAR: Irregular rhythm without murmurs, rubs or gallops. ABDOMINAL EXAM: Nontender, nondistended. Good bowel sounds. No hepatosplenomegaly. EXTREMITIES: No clubbing, cyanosis or edema. Good peripheral pulses NEUROLOGIC: Cranial nerves intact. Motor and sensory grossly intact. LABORATORY DATA Sodium 142, potassium 4.2, chloride is 106, bicarb is 29, BUN is 20, creatinine 1.01. WBC 14.3. INR is 1.2. ASSESSMENT 1. Atrial fibrillation with rapid ventricular rate. 2. Hypertension. PLAN I suspect his atrial fibrillation was induced secondary to increased adrenergic tone related to his infection. He is already on beta leno and calcium channel leno at pretty good doses. He has relatively normal renal function. We will add digoxin to his regimen. We will start with an IV digoxin load followed by daily levels. We may have a little more room to titrate beta leno and calcium channel leno if needed but we will see how he does over the course of the next 24 hours. MD TIFF Bain/CHERYL /11:32 AM /11:44 AM
[2017-02-02 12:00] VITALS: BP 120/68; PULSE 98; RESP 18; TEMP 97.5; O2SAT 95
[2017-02-02 12:04] LABS: AUTOMATED NEUTROPHIL # 9.2 TH/MM3 (1.8-7.7); BASOPHIL # 0.1 TH/MM3 (0-0.2); BASOPHIL % 0.6 % (0.0-2.0); EOSINOPHIL # 0.1 TH/MM3 (0-0.4); EOSINOPHIL % 1.1 % (0.0-4.0); HEMATOCRIT 43.6 % (39.0-51.0); HEMO FLAGS DIFF FINAL; LYMPH % 7.8 % (9.0-44.0); LYMPHOCYTE # 0.9 TH/MM3 (1.0-4.8); MEAN CELL VOLUME 91.9 FL (80.0-100.0); MEAN CORPUSCULAR HEMOGLOBIN 31.4 PG (27.0-34.0); MEAN CORPUSCULAR HGB CONC 34.2 % (32.0-36.0); MONO % 10.3 % (0.0-8.0); NEUT % 80.2 % (16.0-70.0); PLATELET COUNT 679 TH/MM3 (150-450); RED BLOOD COUNT 4.74 MIL/MM3 (4.50-5.90); RED CELL DISTRIBUTION WIDTH 15.1 % (11.6-17.2); WHITE BLOOD COUNT 11.4 TH/MM3 (4.0-11.0)
[2017-02-02 12:04] LABS: BICARBONATE 29.1 MEQ/L (21.0-32.0); POTASSIUM 3.4 MEQ/L (3.5-5.1)
--- NOTE | 2017-02-02 12:18 | EC ---
Study Study Date:02/02/2017 STUDY CONCLUSIONS SUMMARY - Procedure narrative: Transthoracic echocardiography. Image quality was suboptimal. The study was technically limited due to poor acoustic window availability. Scanning was performed from the parasternal, apical, and subcostal acoustic windows. - Left ventricle: The cavity size was normal. Wall thickness was normal. Systolic function was normal. The estimated ejection fraction was in the range of 55% to 60%. Wall motion was normal; there were no regional wall motion abnormalities. - Pulmonary arteries: Systolic pressure was mildly to moderately increased. PA peak pressure: 48mm Hg (S). If LV function is below 40, please consider prescribing an ACEI or ARB or document rationale for non-use. PROCEDURE DATA STUDY STATUS: Elective. Procedure: Transthoracic echocardiography. Image quality was suboptimal. The study was technically limited due to poor acoustic window availability. Scanning was performed from the parasternal, apical, and subcostal acoustic windows. Study completion: The patient tolerated the procedure well. Transthoracic echocardiography. M-mode, complete 2D, complete spectral Doppler, and color Doppler. Patient status: Inpatient. CARDIAC ANATOMY LEFT VENTRICLE: The cavity size was normal. Wall thickness was normal. Systolic function was normal. The estimated ejection fraction was in the range of 55% to 60%. Wall motion was normal; there were no regional wall motion abnormalities. AORTIC VALVE: Trileaflet; normal thickness leaflets. Doppler: Transvalvular velocity was within the normal range. There was no stenosis. No regurgitation. AORTA: Aortic root: The aortic root was normal in size. MITRAL VALVE: Structurally normal valve. Doppler: Transvalvular velocity was within the normal range. There was no evidence for stenosis. Trace to mild regurgitation. LEFT ATRIUM: The atrium was normal in size. RIGHT VENTRICLE: The cavity size was normal. Wall thickness was normal. PULMONIC VALVE: Doppler: Transvalvular velocity was within the normal range. There was no evidence for stenosis. No regurgitation. TRICUSPID VALVE: Structurally normal valve. Doppler: Transvalvular velocity was within the normal range. Trace to mild regurgitation. PULMONARY ARTERY: The main pulmonary artery was normal-sized. Systolic pressure was mildly to moderately increased. RIGHT ATRIUM: The atrium was normal in size. PERICARDIUM: There was no pericardial effusion. SYSTEMIC VEINS: Inferior vena cava: The vessel was normal in size. BASIC MEASUREMENTS ADULT NORMAL Left ventricle LV internal dimension, ED, chordal level, 44.3 mm 43-52 PLAX LV internal dimension, ES, chordal level, 36 mm 23-38 PLAX Fractional shortening, chordal level, PLAX *19 % >29 LV posterior wall thickness, ED 10.7 mm IVS/LVPW ratio, ED 1.02 <1.3 Ventricular septum Septal thickness, ED 10.9 mm Aortic valve Leaflet separation 21 mm 15-26 Right ventricle RV internal dimension, ED, PLAX 30.4 mm 19-38 BASIC MEASUREMENTS ADULT NORMAL Aortic valve Leaflet separation 21 mm 15-26 Aorta Root diameter, ED 31 mm 20-37 Left atrium Anterior-posterior dimension, ES 33 mm 19-40 LA/aortic root ratio 1.06 DOPPLER MEASUREMENTS ADULT NORMAL Main pulmonary artery Pressure, S *48 mm Hg =30 Tricuspid valve Regurgitant peak velocity 307 cm/s Peak RV-RA gradient, S 38 mm Hg Maximal regurgitant velocity 307 cm/s Systemic veins Estimated CVP 10 mm Hg Right ventricle RV pressure, S *48 mm Hg <30 LEGEND: Mean values are shown as u=mean value. Asterisk (*) silva values outside specified normal range. Prepared and signed by Yariel Marrero [id number]
[2017-02-02] MEDS ORDERED: BISACODYL 10 MG SUPP RECTAL ONE (14:45)
[2017-02-02] MEDS ORDERED: MAGNESIUM HYDROXIDE SUSP 30 ML CUP PO ONE (14:45)
[2017-02-02] MEDS ORDERED: DOCUSATE SODIUM 50 MG/SENNA 8.6 MG TAB PO ONE (14:45)
[2017-02-02] MEDS: WARFARIN SOD 2.5 MG TAB PO SCH (15:02)
[2017-02-02 16:00] VITALS: BP 130/62; PULSE 108; RESP 18; TEMP 98.1; O2SAT 95
--- NOTE | 2017-02-02 16:20 | HHI.PR ---
Addendum to Inpatient Note Addendum Reason: Additional Documentation Additional Information events noted Pt is sarted on IV dig 2/2 Afib control will cont IV Unasyn for now will expect eventual transition to po meds whren cleared for discharge from endoscopy tech myke Mueller,Diandra Mendez MD February 02, 2017 16:20
--- NOTE | 2017-02-02 16:41 | HHI.NSPN ---
(Nato Alarcon Emily KIM) Note Status Status: Progress Note (Nato Alarcon) Interval History Interval History 01/30: 81-year-old male who states that he has a history of lumbar stenosis with at least several months of low back pain with ambulation. However he denies any pain weakness or numbness in the lower extremities prior to this past , 01/26/17. He states that he sometimes uses his 's cane or walker to ambulate, but states that this is due to low back pain not to gait unsteadiness. He did have 3 epidural steroid injections recently, with the last injection approximately 4 weeks ago. He states that the injections did not help the low back pain. He has a history of prostate cancer status post prostatectomy and radiation, but denies any recent or chronic problems with his bowel or bladder function. Mr. Shea states that this past , 01/26/2017, he was in his kitchen and his leg suddenly went out on him. He was not able to get up, and laid on the floor for a couple of hours until he could crawl over to the phone and call for help. A friend or neighbor came to help him. He stated that overnight and the next morning he states that he felt reasonably well and he was able to get up and go shopping that day. He did well until Monday night, 01/29/17 when he was at home in his legs again went out on him suddenly. This time he came to the emergency room. He states that also since 01/26/17 he is noted new onset of edema and erythema in his distal lower extremities. He usually does have some swelling and some skin changes in the legs, but not the extent that he has noted over the past few days. He does complain of rather chronic numbness in the hands which she attributes to arthritis. He does not complain of any pain or weakness in the upper extremities or significant loss of coordination. 01/31: The patient states that he is doing good this morning. He does have some back pain. He states the problem is with his legs. He feels the swelling is slightly better but not as much as he had hoped. His major emphasis was that he lives alone and came to the hospital on not expecting to be admitted. He wants to be discharged so that he may go home. 02/01: The patient was doing good this morning when seen. He didn't have any complaints other than wanting to go home. He wants therapy so that he may be able to get up and walk and then take a taxi home. He wants to go back to his house and check on things and come back for his surgery. 02/02: The patient is asleep when seen this afternoon. He awakens to verbal stimuli. He states he is doing good and had no complaints. When asked how the lower legs are he reports that they are better. (Nato Alarcon) Labs, Micro, & Vital Signs Results Allergies Coded Allergies Type Severity Reaction Last Updated Verified Sulfa Allergy Severe 10/17/16 Yes Tetanus Immune Globulin Allergy Severe Swelling 10/17/16 Yes Recent Impressions Tibia/Fibula X-Ray 01/31/17 0000 Signed Impressions: Service Date/Time: Tuesday, January 31, 2017 20:04 - CONCLUSION: 1. No acute bony abnormality. Soft tissue swelling at the right leg and ankle. Cristiano Leonard MD Cervical Spine MRI 01/31/17 0000 Signed Impressions: Service Date/Time: Tuesday, January 31, 2017 11:41 - CONCLUSION: 1. Multilevel protrusions as described above but more prominent at C3-4, C4-5 and C5-6 levels. 2. Minimal anterolisthesis C3 on C4 and minimal retrolisthesis C5 on C6 and C6 on C7. Juan Cartagena MD ///// 06:00 18:00 06:00 18:00 06:00 18:00 Intake Total 1238 ml 360 ml 1647 ml 480 ml 240 ml Output Total 1100 ml 1275 ml 500 ml 850 ml 550 ml Balance 138 ml -915 ml 1147 ml -370 ml -310 ml Intake Oral 360 ml 360 ml 480 ml 240 ml IV Total 1238 ml 1287 ml Output Urine Total 1100 ml 1275 ml 500 ml 850 ml 550 ml Bladder Scan Volume Amount 51 ml # Voids 1 # Bowel Movements 0 0 0 0 Laboratory Tests Test 01/31/17 02/01/17 02/02/17 02/02/17 06:45 06:17 11:30 11:33 White Blood Count 11.1 TH/MM3 10.9 TH/MM3 11.4 TH/MM3 Red Blood Count 4.60 MIL/MM3 4.45 MIL/MM3 4.74 MIL/MM3 Hemoglobin 14.2 GM/DL 14.3 GM/DL 14.9 GM/DL Hematocrit 43.1 % 41.5 % 43.6 % Mean Corpuscular Volume 93.7 FL 93.3 FL 91.9 FL Mean Corpuscular Hemoglobin 30.9 PG 32.1 PG 31.4 PG Mean Corpuscular Hemoglobin 33.0 % 34.4 % 34.2 % Concent Red Cell Distribution Width 15.3 % 15.2 % 15.1 % Platelet Count 390 TH/MM3 503 TH/MM3 679 TH/MM3 Mean Platelet Volume 7.6 FL 7.6 FL 7.6 FL Neutrophils (%) (Auto) 79.2 % 82.3 % 80.2 % Lymphocytes (%) (Auto) 6.3 % 7.3 % 7.8 % Monocytes (%) (Auto) 13.2 % 9.3 % 10.3 % Eosinophils (%) (Auto) 0.6 % 0.8 % 1.1 % Basophils (%) (Auto) 0.7 % 0.3 % 0.6 % Neutrophils # (Auto) 8.8 TH/MM3 8.9 TH/MM3 9.2 TH/MM3 Lymphocytes # (Auto) 0.7 TH/MM3 0.8 TH/MM3 0.9 TH/MM3 Monocytes # (Auto) 1.5 TH/MM3 1.0 TH/MM3 1.2 TH/MM3 Eosinophils # (Auto) 0.1 TH/MM3 0.1 TH/MM3 0.1 TH/MM3 Basophils # (Auto) 0.1 TH/MM3 0.0 TH/MM3 0.1 TH/MM3 CBC Comment DIFF FINAL DIFF FINAL DIFF FINAL Differential Comment Erythrocyte Sedimentation Rate 66 mm/hr Prothrombin Time 19.9 SEC 13.5 SEC Prothromb Time International 1.8 RATIO 1.2 RATIO Ratio Sodium Level 139 MEQ/L 142 MEQ/L 141 MEQ/L Potassium Level 3.5 MEQ/L 4.2 MEQ/L 3.4 MEQ/L Chloride Level 103 MEQ/L 106 MEQ/L 101 MEQ/L Carbon Dioxide Level 28.0 MEQ/L 29.9 MEQ/L 29.1 MEQ/L Anion Gap 8 MEQ/L 6 MEQ/L 11 MEQ/L Blood Urea Nitrogen 21 MG/DL 20 MG/DL 20 MG/DL Creatinine 1.02 MG/DL 1.01 MG/DL 1.02 MG/DL Estimat Glomerular Filtration 70 ML/MIN 71 ML/MIN 70 ML/MIN Rate Random Glucose 107 MG/DL 125 MG/DL 154 MG/DL Hemoglobin A1c 6.4 % Calcium Level 8.6 MG/DL 9.2 MG/DL 8.7 MG/DL Phosphorus Level 2.5 MG/DL Magnesium Level 2.5 MG/DL Albumin 2.0 GM/DL Constitutional Vital Signs Date Time Temp Pulse Resp B/P Pulse Ox O2 Delivery O2 Flow Rate FiO2 02/02/17 12:00 97.5 98 18 120/68 95 02/02/17 08:00 97.3 138 18 138/76 96 02/02/17 04:00 98.2 95 18 138/74 95 02/02/17 00:00 98.1 80 18 106/68 97 02/01/17 20:20 104 02/01/17 20:00 98.3 92 18 134/72 96 02/02/17 07:00 Intake Total 720 ml Output Total 1400 ml Balance -680 ml (Nato Alarcon) Review of Systems/Exam ROS Constitutional: Patient denies any fever or chills. Respiratory: Patient denies any shortness of breath or productive cough. Cardiovascular: Patient denies any chest pain, palpitations or irregular heart beat. Gastrointestinal: Patient denies any abdominal pain, nausea, vomiting or bowel incontinence. Genitourinary: Patient denies any bladder incontinence. Musculoskeletal: Patient some back pain and reports improved swelling to both lower legs. He denies any neck pain. Neurologic: Patient denies any headache, dizziness, numbness, tingling or localised weakness. Exam GENERAL: Moderately obese gentleman in no apparent distress. SKIN: Improved erythema, edema & warmth in the distal lower extremities. Dry scaling skin in the calves and feet. He has dressings in place on lower extremity wounds at the distal calves and ankles. Multiple ecchymotic areas to all extremities ages indeterminate. HEAD: Atraumatic. Normocephalic. CARDIOVASCULAR: S1S2 w/irregular rhythm w/o M/G/R, radial pulses 2+, cap refill < 2 sec, bilateral lower leg edema improved. RESPIRATORY: CTAB w/o W/R/R, equal excursion, non-laboured, on RA. GASTROINTESTINAL: Abdomen moderately distended, non-tender, positive bowel sounds. MUSCULOSKELETAL: GIBBONS, extremities NTTP, see SKIN above. NEUROLOGICAL: AAOx3 Speech is clear & appropriate Follows simple commands well Sensation is intact to light touch in all extremities Strength normal major flexion and extension groups all extremities except for mild decreased right triceps (Nato Alarcon) Medications Current Medications Current Medications Medications (Trade) Dose Ordered Sig/Сергей Route Start Time Stop Time Status Last Admin (NS Flush) 2 ml UNSCH PRN IV FLUSH 01/29/17 21:00 (NS Flush) 2 ml BID IV FLUSH 01/29/17 21:00 02/02/17 07:45 (Zofran Inj) 4 mg Q6H PRN IVP 01/29/17 21:00 (Dulcolax Supp) 10 mg DAILY PRN RECTAL 01/29/17 21:00 (Tylenol) 650 mg Q6H PRN PO 01/29/17 21:00 ([place] 5-325 Mg) 1 tab Q4H PRN PO 01/29/17 21:00 02/02/17 03:36 (Morphine Inj) 2 mg Q3H PRN IV 01/29/17 21:00 (Cardizem Cd) 300 mg DAILY PO 01/30/17 09:00 02/02/17 07:44 (Pepcid) 20 mg BID PO 01/29/17 21:00 02/02/17 07:44 (Bumetanide) 2 mg DAILY PO 01/30/17 09:00 02/02/17 07:45 (Coumadin) 2.5 mg DAILY@16 PO 01/31/17 16:00 02/02/17 15:02 Enoxaparin Sodium 40 mg 40 mg Q24H SQ 02/02/17 09:00 02/02/17 07:45 (Unasyn Inj/NS Inj) 100 ml @ 200 mls/hr Q6H IV 02/02/17 09:00 02/02/17 15:00 Metoprolol Tartrate 100 mg 100 mg BID PO 02/02/17 21:00 (Coumadin Consult Pharmacy) 0 ml @ 0 mls/hr UNSCH OTHER 02/02/17 09:30 (Lovenox Inj) 40 mg Q24H SQ 02/03/17 11:00 (Lanoxin Inj) 0.25 mg Q6H IVS 02/02/17 17:30 02/02/17 23:31 (Lanoxin) 0.125 mg DAILY PO 02/03/17 09:00 (Nato Alarcon) Medical Decision Making MDM Remarks Impression: 1. Lumbar spondylosis and degenerative disc disease with moderately severe L4 5 stenosis, partially secondary to synovial cyst formation, as well as significant L1-2 stenosis 2. Cervical stenosis. Possible myelopathy 3. Recent episodes of acute onset paraparesis. Presently his lower extremity strength is within normal limits. However no definite evidence of cauda equina syndrome on examination although he is at risk for development of it or radiculopathy. No post void residual on bladder scan per patient Staph aureus & Acinetobacter baumannii/haemol wound infection per wound culture , on abx Medicine has cleared patient for surgery on Infectious Disease plans to treat wounds for 2 wks Cardiology following patient for atrial fibrillation and adjusting medications ( Nato Alarcon) Plan Plan Remarks Continue physical therapy Recommend surgical intervention for the cervical & lumbar stenosis, will be staged doing the cervical first and come back later and do the lumbar. Patient wants to go home and not pursue surgery this hospitalisation Patient is able to be discharged from NSGY's perspective and be scheduled for surgery at a later date Recommend inpatient rehab although patient is hesitant to the idea, if necessary Home Health for continued PT is an option Continue abx for bilateral lower leg cellulitis per ID Patient will need to be off warfarin for surgery, could be bridged with heparin subq if necessary (Nato Alarcon) Attending Statement I have personally seen and examined the patient on the date of this note. Pertinent documentation and study results have been reviewed by the undersigned. I have personally developed the treatment plan and performed medical decision making. Agree with findings, exam, and treatment plan as noted above. Physical therapy notes reviewed. Discharge plans reviewed. Discussed at length with the patient today. Offered to proceed with the initial cervical decompressive procedure during this hospitalization. He states that he would like to move on to rehabilitation and then hopefully home within the next week or so. He will then pursue surgical intervention for the cervical and lumbar stenosis on an elective basis. Signs and symptoms to watch were discussed. He is stable for discharge from neurosurgical standpoint and will be seen back on an outpatient basis. (Moses Vargas MD) Nato Alarcon February 02, 2017 16:41 Moses Vargas MD February 02, 2017 20:34
[2017-02-02] MEDS: DIGOXIN 0.5 MG/2 ML VIAL IVS SCH ×2 (17:24→23:52)
[2017-02-02] MEDS ORDERED: POTASSIUM CHLORIDE 10 MEQ CONTROLLED RELEASE TAB PO ONE (19:30)
[2017-02-02 20:00] VITALS: BP 132/70; PULSE 101; PULSE 103; RESP 20; TEMP 98; O2SAT 96
--- NOTE | 2017-02-02 23:57 | HHI.PR ---
Subjective Remarks Patient seen this morning around 11:30 AM. Says he is feeling all right. Denies any chest pain or shortness of breath He did have atrial fibrillation with RVR, heart rate up to the 150s. Improved after increased metoprolol, digoxin load. Objective Vital Signs Date Time Temp Pulse Resp B/P Pulse Ox O2 Delivery O2 Flow Rate FiO2 02/02/17 20:00 98.0 103 20 132/70 96 Automatic Cuff 02/02/17 16:00 98.1 108 18 130/62 95 02/02/17 12:00 97.5 98 18 120/68 95 02/02/17 08:00 97.3 138 18 138/76 96 02/02/17 04:00 98.2 95 18 138/74 95 02/02/17 00:00 98.1 80 18 106/68 97 I/O 02/01/17 02/01/17 02/01/17 02/02/17 02/02/17 02/02/17 07:00 15:00 23:00 07:00 15:00 23:00 Intake Total 705 ml 480 ml 240 ml 1170 ml 240 ml Output Total 100 ml 850 ml 550 ml 1050 ml 600 ml Balance 605 ml -370 ml -310 ml 120 ml -360 ml Intake Oral 120 ml 480 ml 240 ml 720 ml 240 ml IV Total 585 ml 450 ml Output Urine Total 100 ml 850 ml 550 ml 1050 ml 600 ml # Bowel Movements 0 0 0 Result Diagram: 02/02/17 1133 02/02/17 1130 Objective Remarks GENERAL:patient sitting up in bed. Appears comfortable. Alert and oriented 3. SKIN: Warm and dry. HEAD: Normocephalic. EYES: No scleral icterus. No injection or drainage. NECK: Supple, trachea midline. No JVD. CARDIOVASCULAR: Regular rate and rhythm without murmurs, gallops, or rubs. RESPIRATORY: Breath sounds equal bilaterally. No accessory muscle use. GASTROINTESTINAL: Abdomen soft, non-tender, nondistended. MUSCULOSKELETAL: No cyanosis. +2 bilateral lower extremity edema.left ankle has improved. Right ankle with very slight improvement again, however definitely has improved from yesterday. Good pedal pulses underneath edema. Anterior narayan 2.5 x 2.5 stage II, possibly stage III ulcer with surrounding erythema. BACK: Nontender without obvious deformity. No CVA tenderness. A/P Assessment and Plan ==== 02/02/17 Atrial fibrillation with RVR. Improved after increased metoprolol dose, digoxin load. Right leg with again slight improvement. Discussed with Dr. Mueller. Appreciate assistance. May be able to discharge to rehabilitation tomorrow. //Sepsis //Bilateral lower extremity cellulitis //Suspected bilateral lower extremity neurogenic edema. -Tachycardia, leukocytosis, lactic acidosis on admission. Lactic acid improved -Continue broad-spectrum antibiotics. -Elevate extremities. Erythema bilateral lower extremities -cultures with gram-negative rods, staph aureus. Continue antibiotics as ordered for now. Further sensitivities of gram-negative alison pending. not improving as expected. X-ray right lower leg ordered to evaluate for possible osteomyelitis. ESR in the 60s. Continue antibiotics. appreciate ID assistance. Continue antibiotics. Currently on Unasyn. //Severe cervical and lumbar stenosis. acute on chronic -Known history of spinal stenosis, however with worsening. Unable to walk with physical therapy here. -neurosurgery plans for intervention as outpatient. //Atrial fibrillation. With RVR on admission. -RVR has improved, however recurred on 02/02. Rate control with metoprolol, diltiazem. -Anticoagulation with Coumadin. No history of stroke. //Appropriateness for spinal surgery. Patient denies any exertional chest pain. Was self-sufficient in ADLs prior to recent fall. Denies any history of coronary artery disease, although does have atrial fibrillation, obesity. Patient has an above average risk for any complication, calculated at 4.3%, However is medically optimized. Risk factors-Obesity, atrial fibrillation, chronic kidney disease stage III. Admission for bilateral lower extremity cellulitis which is improving. Will need INR reversed prior to any surgical procedure. //Chronic kidney disease. Creatinine 1.8 on admission, improved. Continue to monitor. Continue IV fluids. //Recent fall prior to admission. CT head negative. Spinal stenosis as above. //DVT prophylaxis. On Coumadin. daily Lovenox while subtherapeutic. Discharge Planning patient can follow up with neurosurgery as outpatient for spinal stenosis.. pending further improvement of right lower extremity cellulitis. -patient can likely go to inpatient rehabilitation or SNF tomorrow area if stable.. Vinny Rodriguez MD February 02, 2017 23:57
[2017-02-03] VITALS: BP 131/70; PULSE 92; RESP 20; TEMP 98.3; O2SAT 96
[2017-02-03] MEDS: AMPICILLIN-SULBACTAM INJ 3 GM in SODIUM CHLORIDE 0.9% INJ 100 ML IV SCH ×3 (03:21→14:34)
[2017-02-03 04:00] VITALS: BP 137/66; PULSE 85; RESP 20; TEMP 99; O2SAT 97
--- NOTE | 2017-02-03 07:50 | PD.CARD.PN ---
Subjective Subjective Remarks sitting up in bed comfortably. denies chest pain, SOB or palpitations (Eli Trammell) Objective Medications Current Medications Medications (Trade) Dose Ordered Sig/Сергей Route Start Time Stop Time Status Last Admin (NS Flush) 2 ml UNSCH PRN IV FLUSH 01/29/17 21:00 (NS Flush) 2 ml BID IV FLUSH 01/29/17 21:00 02/02/17 20:28 (Zofran Inj) 4 mg Q6H PRN IVP 01/29/17 21:00 (Dulcolax Supp) 10 mg DAILY PRN RECTAL 01/29/17 21:00 (Tylenol) 650 mg Q6H PRN PO 01/29/17 21:00 ([place] 5-325 Mg) 1 tab Q4H PRN PO 01/29/17 21:00 02/02/17 20:33 (Morphine Inj) 2 mg Q3H PRN IV 01/29/17 21:00 (Cardizem Cd) 300 mg DAILY PO 01/30/17 09:00 02/02/17 07:44 (Pepcid) 20 mg BID PO 01/29/17 21:00 02/02/17 20:28 (Bumetanide) 2 mg DAILY PO 01/30/17 09:00 02/02/17 07:45 (Coumadin) 2.5 mg DAILY@16 PO 01/31/17 16:00 02/02/17 15:02 Enoxaparin Sodium 40 mg 40 mg Q24H SQ 02/02/17 09:00 02/02/17 07:45 (Unasyn Inj/NS Inj) 100 ml @ 200 mls/hr Q6H IV 02/02/17 09:00 02/03/17 03:21 Metoprolol Tartrate 100 mg 100 mg BID PO 02/02/17 21:00 02/02/17 20:28 (Coumadin Consult Pharmacy) 0 ml @ 0 mls/hr UNSCH OTHER 02/02/17 09:30 (Lovenox Inj) 40 mg Q24H SQ 02/03/17 11:00 (Lanoxin) 0.125 mg DAILY PO 02/03/17 09:00 Vital Signs / I&O Vital Signs Date Time Temp Pulse Resp B/P Pulse Ox O2 Delivery O2 Flow Rate FiO2 02/03/17 04:00 99.0 85 20 137/66 97 02/03/17 00:00 98.3 92 20 131/70 96 02/02/17 20:00 98.0 103 20 132/70 96 Automatic Cuff 02/02/17 20:00 101 02/02/17 16:00 98.1 108 18 130/62 95 02/02/17 12:00 97.5 98 18 120/68 95 02/02/17 08:00 97.3 138 18 138/76 96 I/O 02/02/17 02/02/17 02/02/17 02/03/17 02/03/17 02/03/17 07:00 15:00 23:00 07:00 15:00 23:00 Intake Total 1170 ml 440 ml 200 ml Output Total 1050 ml 600 ml Balance 120 ml -160 ml 200 ml Intake Oral 720 ml 240 ml IV Total 450 ml 200 ml 200 ml Output Urine Total 1050 ml 600 ml # Bowel Movements 0 Physical Exam EYES: Pupils equal and round. ENT: No nasal bleeding or discharge. t. NECK: Trachea midline. No JVD. CARDIOVASCULAR: Irregularly irregular rate and rhythm, no murmurs RESPIRATORY: No accessory muscle use. Clear to auscultation. Breath sounds equal bilaterally. GASTROINTESTINAL: Abdomen soft, non-tender, nondistended. MUSCULOSKELETAL: Extremities without clubbing or cyanosis, NEUROLOGICAL: Awake and alert. No obvious cranial nerve deficits. Normal speech. PSYCHIATRIC: Appropriate mood and affect; insight and judgment normal. Laboratory Laboratory Tests Test 02/02/17 02/02/17 11:30 11:33 Sodium Level 141 MEQ/L Potassium Level 3.4 MEQ/L Chloride Level 101 MEQ/L Carbon Dioxide Level 29.1 MEQ/L Anion Gap 11 MEQ/L Blood Urea Nitrogen 20 MG/DL Creatinine 1.02 MG/DL Estimat Glomerular Filtration 70 ML/MIN Rate Random Glucose 154 MG/DL Calcium Level 8.7 MG/DL Thyroid Stimulating Hormone 0.969 uIU/ML 3rd Gen White Blood Count 11.4 TH/MM3 Red Blood Count 4.74 MIL/MM3 Hemoglobin 14.9 GM/DL Hematocrit 43.6 % Mean Corpuscular Volume 91.9 FL Mean Corpuscular Hemoglobin 31.4 PG Mean Corpuscular Hemoglobin 34.2 % Concent Red Cell Distribution Width 15.1 % Platelet Count 679 TH/MM3 Mean Platelet Volume 7.6 FL Neutrophils (%) (Auto) 80.2 % Lymphocytes (%) (Auto) 7.8 % Monocytes (%) (Auto) 10.3 % Eosinophils (%) (Auto) 1.1 % Basophils (%) (Auto) 0.6 % Neutrophils # (Auto) 9.2 TH/MM3 Lymphocytes # (Auto) 0.9 TH/MM3 Monocytes # (Auto) 1.2 TH/MM3 Eosinophils # (Auto) 0.1 TH/MM3 Basophils # (Auto) 0.1 TH/MM3 CBC Comment DIFF FINAL Differential Comment Imaging Last Impressions Tibia/Fibula X-Ray 01/31/17 0000 Signed Impressions: Service Date/Time: Tuesday, January 31, 2017 20:04 - CONCLUSION: 1. No acute bony abnormality. Soft tissue swelling at the right leg and ankle. Cristiano Leonard MD Cervical Spine MRI 01/31/17 0000 Signed Impressions: Service Date/Time: Tuesday, January 31, 2017 11:41 - CONCLUSION: 1. Multilevel protrusions as described above but more prominent at C3-4, C4-5 and C5-6 levels. 2. Minimal anterolisthesis C3 on C4 and minimal retrolisthesis C5 on C6 and C6 on C7. Juan Cartagena MD Lumbar Spine MRI 01/30/17 0000 Signed Impressions: Service Date/Time: Monday, January 30, 2017 18:55 - CONCLUSION: 1. Moderate left-sided protrusion at L1-2 with extruded component abutting the left L3 nerve root lateral recess there is narrowing of the lateral recess. 2. Mild broad-based disc bulge at L2-3 and L5-S1 levels without canal stenosis. 3. Moderate broad-based disc bulge more eccentric to left at L3-4 causing mild canal stenosis. 4. Moderate broad-based extrusion marked eccentric to the right at L4-5 and conjunction with a synovial cyst arising from the right facet causes moderate/severe canal stenosis. Juan Cartagena MD Head CT [id number]/29/[id number] Signed Impressions: Service Date/Time: Sunday, January 29, 2017 19:49 - CONCLUSION: No acute disease. Dewey Castellon MD FACR Cervical Spine CT [id number]/29/[id number] Signed Impressions: Service Date/Time: Sunday, January 29, 2017 19:49 - CONCLUSION: Extensive degenerative changes are present. Significant spinal stenosis is present from mid C4 to mid C7. There is no evidence for fracture. Dewey Castellon MD FACR Chest X-Ray [id number]/29/[id number] Signed Impressions: Service Date/Time: Sunday, January 29, 2017 19:43 - CONCLUSION: Compensated cardiomegaly otherwise negative Dewey Castellon MD FACR Lower Extremity Ultrasound [id number]/29/[id number] Signed Impressions: Service Date/Time: Sunday, January 29, 2017 20:11 - CONCLUSION: Negative for deep venous thrombosis.. Dewey Castellon MD FACR (Eli Trammell) Assessment and Plan Problem List: (1) Atrial fibrillation with RVR Assessment and Plan: 81 yo WM with history of chronic afib. presented with LE cellulitis and afib RVR afib- rate improved. anticoagulated on warfarin, INR=1.2; consider titrating bb and/or CCB. echo= normal EF, PAP=48mmHg K+ slightly decreased (3.4) (Eli Trammell) Assessment and Plan continue current regimen BB/CCB/dig OK for DC to rehab (Yariel Marrero MD) Eli Trammell February 03, 2017 07:50 Yariel Marrero MD February 03, 2017 08:09
[2017-02-03 08:00] VITALS: BP 120/76; PULSE 96; RESP 18; TEMP 98.2; O2SAT 96
[2017-02-03 08:04] LABS: AUTOMATED NEUTROPHIL # 7.1 TH/MM3 (1.8-7.7); BASOPHIL # 0.1 TH/MM3 (0-0.2); BASOPHIL % 0.6 % (0.0-2.0); EOSINOPHIL # 0.2 TH/MM3 (0-0.4); EOSINOPHIL % 1.8 % (0.0-4.0); HEMATOCRIT 44.1 % (39.0-51.0); HEMO FLAGS DIFF FINAL; LYMPH % 9.9 % (9.0-44.0); LYMPHOCYTE # 0.9 TH/MM3 (1.0-4.8); MEAN CELL VOLUME 92.3 FL (80.0-100.0); MEAN CORPUSCULAR HEMOGLOBIN 30.6 PG (27.0-34.0); MEAN CORPUSCULAR HGB CONC 33.2 % (32.0-36.0); MONO % 10.6 % (0.0-8.0); NEUT % 77.1 % (16.0-70.0); PLATELET COUNT 561 TH/MM3 (150-450); RED BLOOD COUNT 4.78 MIL/MM3 (4.50-5.90); WHITE BLOOD COUNT 9.2 TH/MM3 (4.0-11.0)
[2017-02-03 08:14] LABS: INTERNATIONAL NORMALIZED RATIO 1.8 RATIO; PROTHROMBIN TIME - PATIENT 20.1 SEC (9.8-11.6)
[2017-02-03 08:30] LABS: BICARBONATE 31.3 MEQ/L (21.0-32.0); MAGNESIUM 2.8 MG/DL (1.5-2.5); POTASSIUM 3.9 MEQ/L (3.5-5.1)
[2017-02-03 08:47] LABS: DIGOXIN 0.7 NG/ML (0.8-2.0)
[2017-02-03] MEDS ORDERED: DIGOXIN 0.125 MG TAB PO SCH (09:00)
[2017-02-03] MEDS: ENOXAPARIN SODIUM 40 MG/0.4 ML SYRINGE SQ SCH (09:08)
[2017-02-03] MEDS: SODIUM CHLORIDE 0.9% FLUSH 10 ML FLUSH IV FLUSH SCH (09:08)
[2017-02-03] MEDS: FAMOTIDINE 20 MG TAB PO SCH (09:08)
[2017-02-03] MEDS: DILTIAZEM-CD 300 MG CAP ER PO SCH (09:08)
[2017-02-03] MEDS: BUMETANIDE 1 MG TAB PO SCH (09:10)
[2017-02-03] MEDS: METOPROLOL TARTRATE 50 MG TAB PO SCH (09:10)
[2017-02-03 09:12] VITALS: BP 145/80; PULSE 85; RESP 18
[2017-02-03] MEDS ORDERED: MAGNESIUM HYDROXIDE SUSP 30 ML CUP PO ONE (10:45)
[2017-02-03] MEDS ORDERED: SOD PHOSPHATE/SOD BIPHOSPHATE (ADULT) ENEMA 133ML RECTAL ONE (10:45)
[2017-02-03] MEDS ORDERED: DOCUSATE SODIUM 50 MG/SENNA 8.6 MG TAB PO ONE (10:45)
[2017-02-03] MEDS ORDERED: METO50TA PO (10:57)
[2017-02-03] MEDS ORDERED: HYDR-3516 PO (10:57)
[2017-02-03] MEDS ORDERED: DIGO0.12 PO (10:57)
[2017-02-03] MEDS ORDERED: ENOXAPARIN SODIUM 40 MG/0.4 ML SYRINGE SQ SCH (11:00)
[2017-02-03] MEDS ORDERED: CEPH-460 PO (11:04)
[2017-02-03] MEDS ORDERED: LEVA750T PO (11:04)
[2017-02-03 12:00] VITALS: BP 140/84; PULSE 81; RESP 18; TEMP 97.5; O2SAT 97
--- NOTE | 2017-02-03 12:11 | HHI.IDPN ---
Subjective Subjective Remarks Less swollen afebrile tolerates abx OK Antibiotics unasyn Allergies: Coded Allergies: Sulfa (Verified Allergy, Severe, 10/17/16) Tetanus Immune Globulin (Verified Allergy, Severe, Swelling, 10/17/16) Objective . Vital Signs Date Time Temp Pulse Resp B/P Pulse Ox O2 Delivery O2 Flow Rate FiO2 02/03/17 09:12 85 18 145/80 02/03/17 08:00 98.2 96 18 120/76 96 02/03/17 04:00 99.0 85 20 137/66 97 02/03/17 00:00 98.3 92 20 131/70 96 02/02/17 20:00 98.0 103 20 132/70 96 Automatic Cuff 02/02/17 20:00 101 02/02/17 16:00 98.1 108 18 130/62 95 02/02/17 02/02/17 02/03/17 15:00 23:00 07:00 Intake Total 1170 ml 440 ml 200 ml Output Total 1050 ml 600 ml Balance 120 ml -160 ml 200 ml Intake Oral 720 ml 240 ml IV Total 450 ml 200 ml 200 ml Output Urine Total 1050 ml 600 ml # Bowel Movements 0 . Laboratory Tests Test 02/02/17 02/03/17 11:33 07:28 White Blood Count 11.4 TH/MM3 9.2 TH/MM3 Red Blood Count 4.74 MIL/MM3 4.78 MIL/MM3 Hemoglobin 14.9 GM/DL 14.6 GM/DL Hematocrit 43.6 % 44.1 % Mean Corpuscular Volume 91.9 FL 92.3 FL Mean Corpuscular Hemoglobin 31.4 PG 30.6 PG Mean Corpuscular Hemoglobin 34.2 % 33.2 % Concent Red Cell Distribution Width 15.1 % 15.0 % Platelet Count 679 TH/MM3 561 TH/MM3 Mean Platelet Volume 7.6 FL 7.5 FL Neutrophils (%) (Auto) 80.2 % 77.1 % Lymphocytes (%) (Auto) 7.8 % 9.9 % Monocytes (%) (Auto) 10.3 % 10.6 % Eosinophils (%) (Auto) 1.1 % 1.8 % Basophils (%) (Auto) 0.6 % 0.6 % Neutrophils # (Auto) 9.2 TH/MM3 7.1 TH/MM3 Lymphocytes # (Auto) 0.9 TH/MM3 0.9 TH/MM3 Monocytes # (Auto) 1.2 TH/MM3 1.0 TH/MM3 Eosinophils # (Auto) 0.1 TH/MM3 0.2 TH/MM3 Basophils # (Auto) 0.1 TH/MM3 0.1 TH/MM3 CBC Comment DIFF FINAL DIFF FINAL Differential Comment Laboratory Tests Test 02/02/17 02/03/17 11:30 07:28 Sodium Level 141 MEQ/L 141 MEQ/L Potassium Level 3.4 MEQ/L 3.9 MEQ/L Chloride Level 101 MEQ/L 104 MEQ/L Carbon Dioxide Level 29.1 MEQ/L 31.3 MEQ/L Anion Gap 11 MEQ/L 6 MEQ/L Blood Urea Nitrogen 20 MG/DL 19 MG/DL Creatinine 1.02 MG/DL 0.88 MG/DL Estimat Glomerular Filtration 70 ML/MIN 84 ML/MIN Rate Random Glucose 154 MG/DL 104 MG/DL Calcium Level 8.7 MG/DL 9.1 MG/DL Thyroid Stimulating Hormone 0.969 uIU/ML 3rd Gen Phosphorus Level 2.1 MG/DL Magnesium Level 2.8 MG/DL Albumin 2.0 GM/DL Physical Exam CONSTITUTIONAL/GENERAL: This is an obese male patient, in no apparent distress. SKIN: No jaundice, rashes, Multiple scattered skin lesions, . Ecchymoses on upper extremities. R narayan with full thickness skin ulcer anteriorly with small amount of serosang odorless drainage., uppears clean Cellulitis changes improved Skin temperature appropriate. Not diaphoretic. EYES: No scleral icterus. RESPIRATORY/CHEST: Symmetric, unlabored respirations. MUSCULOSKELETAL: Extremities without clubbing, cyanosis, Markedly improved BLE edema with prominent tree bark silva and chronic hyperpigmentation changes B/l pedal pulses are palpable NEUROLOGICAL: Awake and alert. Motor and sensory grossly within normal limits. Follows commands. normal speech. Moves all extremities. Assessment & Plan Remarks BLE chronic venostasis RLE cellulitis with small full thickenss ulcer as the most likely port of entry , - cellulitis improved Infected R narayan ulceration, Acinetobacter, MSSA pOor healing Multiple med problems Underlying diabetes with Hb A1C borderline elevated dc unasyn - Keflex, levaquine x 10 days - pt was instructed to report nausea/vomiting/ abd pain/diarrhea/rash and other co aw abx to health care provier - minotor the ulcer , if ulcer persists after standard treatment duration consider other ethiologes (e.i. skin cancer since pt has a h/o muiltiple squamous/basal carcinomas) OK to dc to prison Discussed Condition With Diandra Brady MD February 03, 2017 12:11
[2017-02-03] MEDS: WARFARIN SOD 2.5 MG TAB PO SCH (15:00)
--- NOTE | 2017-02-03 15:22 | HHI.NSPN ---
(Nato Alarcon Emily KIM) Note Status Status: Progress Note (Nato Alarcon) Interval History Interval History 01/30: 81-year-old male who states that he has a history of lumbar stenosis with at least several months of low back pain with ambulation. However he denies any pain weakness or numbness in the lower extremities prior to this past , 01/26/17. He states that he sometimes uses his 's cane or walker to ambulate, but states that this is due to low back pain not to gait unsteadiness. He did have 3 epidural steroid injections recently, with the last injection approximately 4 weeks ago. He states that the injections did not help the low back pain. He has a history of prostate cancer status post prostatectomy and radiation, but denies any recent or chronic problems with his bowel or bladder function. Mr. Shea states that this past , 01/26/2017, he was in his kitchen and his leg suddenly went out on him. He was not able to get up, and laid on the floor for a couple of hours until he could crawl over to the phone and call for help. A friend or neighbor came to help him. He stated that overnight and the next morning he states that he felt reasonably well and he was able to get up and go shopping that day. He did well until Monday night, 01/29/17 when he was at home in his legs again went out on him suddenly. This time he came to the emergency room. He states that also since 01/26/17 he is noted new onset of edema and erythema in his distal lower extremities. He usually does have some swelling and some skin changes in the legs, but not the extent that he has noted over the past few days. He does complain of rather chronic numbness in the hands which she attributes to arthritis. He does not complain of any pain or weakness in the upper extremities or significant loss of coordination. 01/31: The patient states that he is doing good this morning. He does have some back pain. He states the problem is with his legs. He feels the swelling is slightly better but not as much as he had hoped. His major emphasis was that he lives alone and came to the hospital on not expecting to be admitted. He wants to be discharged so that he may go home. 02/01: The patient was doing good this morning when seen. He didn't have any complaints other than wanting to go home. He wants therapy so that he may be able to get up and walk and then take a taxi home. He wants to go back to his house and check on things and come back for his surgery. 02/02: The patient is asleep when seen this afternoon. He awakens to verbal stimuli. He states he is doing good and had no complaints. When asked how the lower legs are he reports that they are better. 02/03: The patient is awake & alert when seen this afternoon. He states he is doing all right and had no complaints. He is dressed and getting ready to go to rehab. (Nato Alarcon) Labs, Micro, & Vital Signs Results Allergies Coded Allergies Type Severity Reaction Last Updated Verified Sulfa Allergy Severe 10/17/16 Yes Tetanus Immune Globulin Allergy Severe Swelling 10/17/16 Yes 02/01/////// 06:00 18:00 06:00 18:00 06:00 18:00 Intake Total 1647 ml 480 ml 240 ml 1170 ml 640 ml 150 ml Output Total 500 ml 850 ml 550 ml 1050 ml 600 ml 451 ml Balance 1147 ml -370 ml -310 ml 120 ml 40 ml -301 ml Intake Oral 360 ml 480 ml 240 ml 720 ml 240 ml 150 ml IV Total 1287 ml 450 ml 400 ml Output Urine Total 500 ml 850 ml 550 ml 1050 ml 600 ml 450 ml Stool Total 1 ml # Bowel Movements 0 0 0 Laboratory Tests Test 02/01/17 02/02/17 02/02/17 02/03/17 06: 11:30 11:33 07:28 White Blood Count 10.9 TH/MM3 11.4 TH/MM3 9.2 TH/MM3 Red Blood Count 4.45 MIL/MM3 4.74 MIL/MM3 4.78 MIL/MM3 Hemoglobin 14.3 GM/DL 14.9 GM/DL 14.6 GM/DL Hematocrit 41.5 % 43.6 % 44.1 % Mean Corpuscular Volume 93.3 FL 91.9 FL 92.3 FL Mean Corpuscular Hemoglobin 32.1 PG 31.4 PG 30.6 PG Mean Corpuscular Hemoglobin 34.4 % 34.2 % 33.2 % Concent Red Cell Distribution Width 15.2 % 15.1 % 15.0 % Platelet Count 503 TH/MM3 679 TH/MM3 561 TH/MM3 Mean Platelet Volume 7.6 FL 7.6 FL 7.5 FL Neutrophils (%) (Auto) 82.3 % 80.2 % 77.1 % Lymphocytes (%) (Auto) 7.3 % 7.8 % 9.9 % Monocytes (%) (Auto) 9.3 % 10.3 % 10.6 % Eosinophils (%) (Auto) 0.8 % 1.1 % 1.8 % Basophils (%) (Auto) 0.3 % 0.6 % 0.6 % Neutrophils # (Auto) 8.9 TH/MM3 9.2 TH/MM3 7.1 TH/MM3 Lymphocytes # (Auto) 0.8 TH/MM3 0.9 TH/MM3 0.9 TH/MM3 Monocytes # (Auto) 1.0 TH/MM3 1.2 TH/MM3 1.0 TH/MM3 Eosinophils # (Auto) 0.1 TH/MM3 0.1 TH/MM3 0.2 TH/MM3 Basophils # (Auto) 0.0 TH/MM3 0.1 TH/MM3 0.1 TH/MM3 CBC Comment DIFF FINAL DIFF FINAL DIFF FINAL Differential Comment Prothrombin Time 13.5 SEC 20.1 SEC Prothromb Time International 1.2 RATIO 1.8 RATIO Ratio Sodium Level 142 MEQ/L 141 MEQ/L 141 MEQ/L Potassium Level 4.2 MEQ/L 3.4 MEQ/L 3.9 MEQ/L Chloride Level 106 MEQ/L 101 MEQ/L 104 MEQ/L Carbon Dioxide Level 29.9 MEQ/L 29.1 MEQ/L 31.3 MEQ/L Anion Gap 6 MEQ/L 11 MEQ/L 6 MEQ/L Blood Urea Nitrogen 20 MG/DL 20 MG/DL 19 MG/DL Creatinine 1.01 MG/DL 1.02 MG/DL 0.88 MG/DL Estimat Glomerular Filtration 71 ML/MIN 70 ML/MIN 84 ML/MIN Rate Random Glucose 125 MG/DL 154 MG/DL 104 MG/DL Calcium Level 9.2 MG/DL 8.7 MG/DL 9.1 MG/DL Phosphorus Level 2.5 MG/DL 2.1 MG/DL Magnesium Level 2.5 MG/DL 2.8 MG/DL Albumin 2.0 GM/DL 2.0 GM/DL Thyroid Stimulating Hormone 0.969 uIU/ML 3rd Gen Digoxin Level 0.7 NG/ML Constitutional Vital Signs Date Time Temp Pulse Resp B/P Pulse Ox O2 Delivery O2 Flow Rate FiO2 02/03/17 12:00 97.5 81 18 140/84 97 02/03/17 09:12 85 18 145/80 02/03/17 08:00 98.2 96 18 120/76 96 02/03/17 04:00 99.0 85 20 137/66 97 02/03/17 00:00 98.3 92 20 131/70 96 02/02/17 20:00 98.0 103 20 132/70 96 Automatic Cuff 02/02/17 20:00 101 02/02/17 16:00 98.1 108 18 130/62 95 02/03/17 07:00 Intake Total 1810 ml Output Total 1650 ml Balance 160 ml (Nato Alarcon) Review of Systems/Exam ROS Constitutional: Patient denies any fever or chills. Respiratory: Patient denies any shortness of breath or productive cough. Cardiovascular: Patient denies any chest pain, palpitations or irregular heart beat. Gastrointestinal: Patient denies any abdominal pain, nausea, vomiting or bowel incontinence. Genitourinary: Patient denies any bladder incontinence. Musculoskeletal: Patient with back pain. He says the swelling to both lower legs is better. He denies any neck pain. Neurologic: Patient denies any headache, dizziness, numbness, tingling or localised weakness. Exam GENERAL: Moderately obese gentleman in no apparent distress. Flat affect. SKIN: Erythema, edema & warmth in the distal lower extremities continues to improve. Dry scaling skin in the calves and feet. He has dressings in place on lower extremity wounds at the distal calves and ankles. Multiple ecchymotic areas to all extremities ages indeterminate. HEAD: Atraumatic. Normocephalic. CARDIOVASCULAR: S1S2 w/irregular rhythm w/o M/G/R, radial pulses 2+, cap refill < 2 sec, bilateral lower leg edema improved. RESPIRATORY: CTAB w/o W/R/R, equal excursion, non-laboured, on RA. GASTROINTESTINAL: Abdomen moderately distended, non-tender, bowel sounds not appreciated. MUSCULOSKELETAL: GIBBONS, extremities NTTP, see SKIN above. NEUROLOGICAL: AAOx3 Speech is clear & appropriate Follows simple commands well Sensation is intact to light touch in all extremities Strength normal major flexion and extension groups all extremities except for mild decreased right triceps (Nato Alarcon) Medications Current Medications Current Medications Medications (Trade) Dose Ordered Sig/Сергей Route Start Time Stop Time Status Last Admin (NS Flush) 2 ml UNSCH PRN IV FLUSH 01/29/17 21:00 (NS Flush) 2 ml BID IV FLUSH 01/29/17 21:00 02/03/17 09:08 (Zofran Inj) 4 mg Q6H PRN IVP 01/29/17 21:00 (Dulcolax Supp) 10 mg DAILY PRN RECTAL 01/29/17 21:00 (Tylenol) 650 mg Q6H PRN PO 01/29/17 21:00 ([place] 5-325 Mg) 1 tab Q4H PRN PO 01/29/17 21:00 02/02/17 20:33 (Morphine Inj) 2 mg Q3H PRN IV 01/29/17 21:00 (Cardizem Cd) 300 mg DAILY PO 01/30/17 09:00 02/03/17 09:08 (Pepcid) 20 mg BID PO 01/29/17 21:00 02/03/17 09:08 (Bumetanide) 2 mg DAILY PO 01/30/17 09:00 02/03/17 09:10 (Coumadin) 2.5 mg DAILY@16 PO 01/31/17 16:00 02/03/17 15:00 Enoxaparin Sodium 40 mg 40 mg Q24H SQ 02/02/17 09:00 02/03/17 09:08 (Unasyn Inj/NS Inj) 100 ml @ 200 mls/hr Q6H IV 02/02/17 09:00 02/03/17 14:34 (Lopressor) 100 mg BID PO 02/02/17 21:00 02/03/17 09:10 (Lovenox Inj) 40 mg Q24H SQ 02/03/17 11:00 02/03/17 10:30 (Lanoxin) 0.125 mg DAILY PO 02/03/17 09:00 02/03/17 09:09 Patient Medication Teaching 1 1 ONCE ONCE .XX 02/03/17 16:00 02/03/17 16:01 (Coumadin Consult Pharmacy) 0 ml @ 0 mls/hr UNSCH OTHER 02/03/17 12:45 (Nato Alarcon) Medical Decision Making MDM Remarks Impression: 1. Lumbar spondylosis and degenerative disc disease with moderately severe L4 5 stenosis, partially secondary to synovial cyst formation, as well as significant L1-2 stenosis 2. Cervical stenosis. Possible myelopathy 3. Recent episodes of acute onset paraparesis. Presently his lower extremity strength is within normal limits. However no definite evidence of cauda equina syndrome on examination although he is at risk for development of it or radiculopathy. No post void residual on bladder scan per patient Staph aureus & Acinetobacter baumannii/haemol wound infection per wound culture , on abx Medicine has cleared patient for surgery on Infectious Disease plans to treat wounds for 2 wks Cardiology following patient for atrial fibrillation and adjusting medications Patient has been cleared for discharge to rehab by Medicine, Infectious Disease & Cardiology (Nato Alarcon) Plan Plan Remarks Recommend surgical intervention for the cervical & lumbar stenosis, will be staged doing the cervical first and come back later and do the lumbar. Patient wants to go home and not pursue surgery this hospitalisation Patient is able to be discharged from NSGY's perspective and be scheduled for surgery at a later date Continue abx for bilateral lower leg cellulitis per ID Will contact patient regarding surgery, pre-op and when to stop warfarin (Nato Alarcon) Attending Statement The exam, history, and the medical decision-making described in the above note were completed with the assistance of the mid-level provider. I reviewed and agree with the findings presented. I attest that I had a [id number] encounter with the patient on the same day, and personally performed and documented my assessment and findings in the medical record. D/W patient, He needs to pursue surgical decompression. He appears stable at present and wants to D/C home with outpatient F/U to schedule elective surgery (Moses Vargas MD) Nato Alarcon February 03, 2017 15:22 Moses Vargas MD Mar 21, 2017 16:18
--- NOTE | 2017-02-04 09:50 | HHI.PR ---
Subjective Remarks Date of service 02/03/17. Patient seen in the morning prior to discharge. Says he is feeling well. Reports pain is controlled. Denies any chest pain or shortness of breath. Denies any nausea or vomiting. Objective Vital Signs Date Time Temp Pulse Resp B/P Pulse Ox O2 Delivery O2 Flow Rate FiO2 02/03/17 12:00 97.5 81 18 140/84 97 I/O 02/03/17 02/03/17 02/03/17 02/04/17 02/04/17 02/04/17 07:00 15:00 23:00 07:00 15:00 23:00 Intake Total 200 ml 150 ml Output Total 451 ml Balance 200 ml -301 ml Intake Oral 150 ml IV Total 200 ml Output Urine Total 450 ml Stool Total 1 ml Result Diagram: 02/03/1772702/03/17727 Objective Remarks GENERAL:patient sitting up in bed. Appears comfortable. Alert and oriented 3. SKIN: Warm and dry. HEAD: Normocephalic. EYES: No scleral icterus. No injection or drainage. NECK: Supple, trachea midline. No JVD. CARDIOVASCULAR: Regular rate and rhythm without murmurs, gallops, or rubs. RESPIRATORY: Breath sounds equal bilaterally. No accessory muscle use. GASTROINTESTINAL: Abdomen soft, non-tender, nondistended. MUSCULOSKELETAL: No cyanosis. +1 bilateral lower extremity edema.left ankle has improvedagain today. Right ankle with good improvement today.Good pedal pulses underneath edema. Anterior narayan 2.5 x 2.5 stage II, possibly stage III ulcer with surrounding erythema, which has improved from day prior.. BACK: Nontender without obvious deformity. No CVA tenderness. A/P Assessment and Plan ==== 02/03/17 Atrial fibrillation. RVR is under control. Follow-up cardiology. INR will need to be followed up at receiving facility. We'll continue antibiotics as per infectious disease to complete treatment course. Discussed with infectious disease. Appreciate assistance. Discharge to rehabilitation. //Sepsis. Resolved. //Bilateral lower extremity cellulitis //Suspected bilateral lower extremity neurogenic edema. -Tachycardia, leukocytosis, lactic acidosis on admission. Lactic acid improved -Continue broad-spectrum antibiotics. -Elevate extremities. Erythema bilateral lower extremities -cultures with gram-negative rods, staph aureus. Continue antibiotics as ordered for now. Further sensitivities of gram-negative alison pending. not improving as expected. X-ray right lower leg ordered to evaluate for possible osteomyelitis. ESR in the 60s. Continue antibiotics. appreciate ID assistance. Continue antibiotics. -Continue antibiotics to complete treatment course as per infectious disease. //Severe cervical and lumbar stenosis. acute on chronic -Known history of spinal stenosis, however with worsening. Unable to walk with physical therapy here. -neurosurgery plans for intervention as outpatient. //Atrial fibrillation. With RVR on admission. -RVR has improved, however recurred on 02/02. Rate control with metoprolol, diltiazem. -Anticoagulation with Coumadin. No history of stroke. //Appropriateness for spinal surgery. Patient denies any exertional chest pain. Was self-sufficient in ADLs prior to recent fall. Denies any history of coronary artery disease, although does have atrial fibrillation, obesity. Patient has an above average risk for any complication, calculated at 4.3%, However is medically optimized. Risk factors-Obesity, atrial fibrillation, chronic kidney disease stage III. Admission for bilateral lower extremity cellulitis which is improving. Will need INR reversed prior to any surgical procedure. //Chronic kidney disease. Creatinine 1.8 on admission, improved. Continue to monitor. Continue IV fluids. //Recent fall prior to admission. CT head negative. Spinal stenosis as above. //DVT prophylaxis. On Coumadin. daily Lovenox while subtherapeutic. Discharge Planning patient can follow up with neurosurgery as outpatient for spinal stenosis.. follow-up cardiology for atrial fibrillation. will need digoxin followed at receiving facility. Follow-up with cardiology discharged SNF. Vinny Rodriguez MD February 04, 2017 09:50
--- NOTE | 2017-02-04 09:58 | HHI.DS ---
Discharge Summary Admission Date January 29, 2017 at 20:58 Discharge Date: February 03, 2017 Admitting Diagnosis Cellulitis bilateral lower extremities (1) Sepsis ICD Code: A41.9 (2) Lower extremity cellulitis ICD Code: L03.119 (3) Fall ICD Code: W19.XXXA (4) Atrial fibrillation with RVR ICD Code: I48.91 (5) Dehydration ICD Code: E86.0 (6) Renal insufficiency ICD Code: N28.9 Procedures no invasive procedures. Brief History - From Admission This is a 81-year-old male with PMH of HTN, Prostate CA s/p Prostatectomy/ Radiation, A. fib on Coumadin, Chronic Back Pain and Spinal Stenosis who presented to the ER with complaints of bilateral lower extremity edema and pain w/ difficulty ambulating since . Per pt, had fall and sustained abrasions to bilateral lower extremities, now w/ progressive pain and swelling. Notes significant pain bilateral feet making ambulation difficult. Had recurrent fall today, but denies any injury. No LOC or head trauma. Denies fever, chills, nausea/vomiting or diarrhea. On arrival, noted to be in A -fib w/ RVR, HR 110-120's, BP 143/69, O2 sat 97% on RA, Afebrile. WBC 16.4. Creatinine 1.80, previously 1.41 on 01/10/11. Lactic Acid 3.4. Troponin negative. INR 1.6. LE Doppler negative for DVT. CXR with compensated cardiomegaly. CT Evidence acute findings. CT C-spine with extensive degenerative changes, significant spinal stenosis, no acute fracture. S/p Wound /Blood Cultures in ER, in addition to Vanc/Zosyn. CBC/BMP: 02/03/17 0728 02/03/17 0728 Significant Findings Laboratory Tests Test 02/02/17 02/02/17 02/03/17 11:30 11:33 07:28 Potassium Level 3.4 MEQ/L (3.5-5.1) Blood Urea Nitrogen 20 MG/DL (7-18) 19 MG/DL (7-18) Estimat Glomerular Filtration 70 ML/MIN (>89) 84 ML/MIN (>89) Rate Random Glucose 154 MG/DL (74-106) White Blood Count 11.4 TH/MM3 (4.0-11.0) Platelet Count 679 TH/MM3 561 TH/MM3 (150-450) (150-450) Neutrophils (%) (Auto) 80.2 % 77.1 % (16.0-70.0) (16.0-70.0) Lymphocytes (%) (Auto) 7.8 % (9.0-44.0) Monocytes (%) (Auto) 10.3 % 10.6 % (0.0-8.0) (0.0-8.0) Neutrophils # (Auto) 9.2 TH/MM3 (1.8-7.7) Lymphocytes # (Auto) 0.9 TH/MM3 0.9 TH/MM3 (1.0-4.8) (1.0-4.8) Monocytes # (Auto) 1.2 TH/MM3 1.0 TH/MM3 (0-0.9) (0-0.9) Prothrombin Time 20.1 SEC (9.8-11.6) Phosphorus Level 2.1 MG/DL (2.5-4.9) Magnesium Level 2.8 MG/DL (1.5-2.5) Albumin 2.0 GM/DL (3.4-5.0) Digoxin Level 0.7 NG/ML (0.8-2.0) Imaging Last Impressions Tibia/Fibula X-Ray 01/31/17 0000 Signed Impressions: Service Date/Time: Tuesday, January 31, 2017 20:04 - CONCLUSION: 1. No acute bony abnormality. Soft tissue swelling at the right leg and ankle. Cristiano Leonard MD Cervical Spine MRI 01/31/17 0000 Signed Impressions: Service Date/Time: Tuesday, January 31, 2017 11:41 - CONCLUSION: 1. Multilevel protrusions as described above but more prominent at C3-4, C4-5 and C5-6 levels. 2. Minimal anterolisthesis C3 on C4 and minimal retrolisthesis C5 on C6 and C6 on C7. Juan Cartagena MD Lumbar Spine MRI 01/30/17 0000 Signed Impressions: Service Date/Time: Monday, January 30, 2017 18:55 - CONCLUSION: 1. Moderate left-sided protrusion at L1-2 with extruded component abutting the left L3 nerve root lateral recess there is narrowing of the lateral recess. 2. Mild broad-based disc bulge at L2-3 and L5-S1 levels without canal stenosis. 3. Moderate broad-based disc bulge more eccentric to left at L3-4 causing mild canal stenosis. 4. Moderate broad-based extrusion marked eccentric to the right at L4-5 and conjunction with a synovial cyst arising from the right facet causes moderate/severe canal stenosis. Juan Cartagena MD Head CT [id number]/29/[id number] Signed Impressions: Service Date/Time: Sunday, January 29, 2017 19:49 - CONCLUSION: No acute disease. Dewey Castellon MD FACR Cervical Spine CT [id number]/29/[id number] Signed Impressions: Service Date/Time: Sunday, January 29, 2017 19:49 - CONCLUSION: Extensive degenerative changes are present. Significant spinal stenosis is present from mid C4 to mid C7. There is no evidence for fracture. Dewey Castellon MD FACR Chest X-Ray [id number]/29/[id number] Signed Impressions: Service Date/Time: Sunday, January 29, 2017 19:43 - CONCLUSION: Compensated cardiomegaly otherwise negative Dewey Castellon MD FACR Lower Extremity Ultrasound [id number]/29/[id number] Signed Impressions: Service Date/Time: Sunday, January 29, 2017 20:11 - CONCLUSION: Negative for deep venous thrombosis.. Dewey Castellon MD FACR Hospital Course Patient was treated with broad spectrum antibiotics, with improvement in bilateral lower extremity cellulitis. Patient found to have stage II ulcer anterior right narayan. Infectious disease was consult said and managed antibiotics. Patient experienced improvement in right lower extremity erythema with improvement in edema. BNP within the normal range, bilateral lower extremity edema possibly neurogenic secondary to spinal stenosis. Patient did experience atrial fibrillation with RVR, which resolved with increase in metoprolol, digoxin loading. Digoxin level afterload measured 0.7, however will need to be followed at receiving facility. We'll need to follow-up with cardiology. Neurosurgery was consulted for both cervical and lumbar spinal stenosis. Neurosurgery initially indicated that they might do surgery when INR was below 1.5, and INR was corrected with vitamin K; neurosurgery will however plan to do this as outpatient after appropriate rehabilitation. Neurosurgery will plan for possible intervention as outpatient. ==== 02/03/17 Atrial fibrillation. RVR is under control. Follow-up cardiology. INR will need to be followed up at receiving facility. We'll continue antibiotics as per infectious disease to complete treatment course. Discussed with infectious disease. Appreciate assistance. Discharge to rehabilitation. //Sepsis. Resolved. //Bilateral lower extremity cellulitis //Suspected bilateral lower extremity neurogenic edema. -Tachycardia, leukocytosis, lactic acidosis on admission. Lactic acid improved -Continue broad-spectrum antibiotics. -Elevate extremities. Erythema bilateral lower extremities -cultures with gram-negative rods, staph aureus. Continue antibiotics as ordered for now. Further sensitivities of gram-negative alison pending. not improving as expected. X-ray right lower leg ordered to evaluate for possible osteomyelitis. ESR in the 60s. Continue antibiotics. appreciate ID assistance. Continue antibiotics. -Continue antibiotics to complete treatment course as per infectious disease. //Severe cervical and lumbar stenosis. acute on chronic -Known history of spinal stenosis, however with worsening. Unable to walk with physical therapy here. -neurosurgery plans for intervention as outpatient. //Atrial fibrillation. With RVR on admission. -RVR has improved, however recurred on 02/02. Rate control with metoprolol, diltiazem. -Anticoagulation with Coumadin. No history of stroke. //Appropriateness for spinal surgery. Patient denies any exertional chest pain. Was self-sufficient in ADLs prior to recent fall. Denies any history of coronary artery disease, although does have atrial fibrillation, obesity. Patient has an above average risk for any complication, calculated at 4.3%, However is medically optimized. Risk factors-Obesity, atrial fibrillation, chronic kidney disease stage III. Admission for bilateral lower extremity cellulitis which is improving. Will need INR reversed prior to any surgical procedure. //Chronic kidney disease. Creatinine 1.8 on admission, improved. Continue to monitor. Continue IV fluids. //Recent fall prior to admission. CT head negative. Spinal stenosis as above. //DVT prophylaxis. On Coumadin. daily Lovenox while subtherapeutic. Discharge Planning patient can follow up with neurosurgery as outpatient for spinal stenosis.. follow-up cardiology for atrial fibrillation. will need digoxin followed at receiving facility. Follow-up with cardiology discharged SNF. Pt Condition on Discharge: Stable Discharge Disposition: Discharge to SNF Discharge Time: > 30 minutes Discharge Instructions DIET: Follow Instructions for: Heart Healthy Diet, Diabetic Diet, Coumadin ( Warfarin) Diet Additional Diet Instructions: patient had prediabetes based on a1c of 6.4. Activities you can perform: Regular-No Restrictions Other Activity Instructions: ambulation with assist. Follow up Referrals: Cardiology - 1 Week with Mesfin Lozano MD Neurosurgery - 2 Weeks with Moses Vargas MD PCP Follow-up - 1 Week New Medications: Cephalexin (Keflex) 500 Mg Cap 500 MG PO Q6H Infection Days 10 Ref 0 CAP Levofloxacin (Levaquin) 750 Mg Tab 750 MG PO DAILY Infection Days 10 Ref 0 TAB Digoxin (Digoxin) 0.125 Mg Tab 0.125 MG PO DAILY atrial fibrillation Days 30 TAB Hydrocodone-Acetaminophen (Hydrocodone-Acetaminophen) 5-325 mg Tab 1 TAB PO Q4H PRN PAIN SCALE 1 TO 10 #18 TAB Changed Medications: Metoprolol Tartrate (Metoprolol Tartrate) 50 Mg Tab 100 MG PO BID atrial fibrillation Days 30 Ref 0 TAB (Changed from: 50 MG; TID) Continued Medications: Bumetanide (Bumetanide) 2 Mg Tab 2 MG PO DAILY PRN PREVENT HEART FAILURE Ref 0 TAB Diltiazem ER 24 HR (Cartia Xt) 300 Mg Caper 300 MG PO DAILY #30 Ref 0 CAP Ranitidine (Ranitidine) 300 Mg Cap 300 MG PO BID Ref 0 CAP Warfarin (Coumadin) 2.5 Mg Tab 2.5 MG PO DAILY Prevent Blood Clot #30 Ref 0 TAB Discontinued Medications: Tramadol (Tramadol) 50 Mg Tab 50 MG PO BID PRN PAIN Ref 0 TAB Vinny Rodriguez MD February 04, 2017 09:58
== END 2017-02-03 16:48 | DRG 872 ==
LOC: NEPC 19:04 → NEDA 20:58 → N04B 22:23
PROVIDERS: ADMIT Internal Medicine; ATTEND Internal Medicine
DX: A41.9 Sepsis, unspecified organism (principal); E87.2 Acidosis; I48.2 Chronic atrial fibrillation; E86.0 Dehydration; L03.115 Cellulitis of right lower limb; N18.3 Chronic kidney disease, stage 3 (moderate); L97.819 Non-pressure chronic ulcer of other part of right lower leg with unspecified severity; E11.22 Type 2 diabetes mellitus with diabetic chronic kidney disease; M48.02 Spinal stenosis, cervical region; I12.9 Hypertensive chronic kidney disease with stage 1 through stage 4 chronic kidney disease, or unspecified chronic kidney disease; L03.116 Cellulitis of left lower limb; E66.9 Obesity, unspecified; S80.812A Abrasion, left lower leg, initial encounter; K21.9 Gastro-esophageal reflux disease without esophagitis; S80.811A Abrasion, right lower leg, initial encounter; R26.2 Difficulty in walking, not elsewhere classified; M48.06 Spinal stenosis, lumbar region; A49.01 Methicillin susceptible Staphylococcus aureus infection, unspecified site; M47.816 Spondylosis without myelopathy or radiculopathy, lumbar region; W18.30XA Fall on same level, unspecified, initial encounter; Z87.891 Personal history of nicotine dependence; Z85.46 Personal history of malignant neoplasm of prostate; Z79.01 Long term (current) use of anticoagulants; Z68.33 Body mass index [BMI] 33.0-33.9, adult
CPT/HCPCS: 70450; 71010; 72125; 72141; 72158; 73590; 80048; 80053; 80069; 80162; 82550; 83036; 83605; 83735; 83880; 84443; 84484; 85025; 85610; 85652; 85730; 86140; 86403; 87040; 87070; 87077; 87147; 87186; 87205; 93005; 93306; 93970; 96365; 96375; A9579; J0295; J0692; J1160; J1650; J2270; J2543; J3370; J7030; J7040; J7050

== ENCOUNTER 2017-02-22 11:53 | Inpatient (IN) | payer OTHER, MEDICARE ==
[2017-02-22] VITALS (7 sets, daily range): BP systolic 99–121; BP diastolic 59–70; PULSE 69–95; RESP 18–20; TEMP 97.5–99.1; O2SAT 97–99
[~2017-02-22] VITALS: Ht 188 cm; Wt 109.9 kg
[~2017-02-22 11:53] MED LIST changes: +CEPH-460 PO; +DIGO0.12 PO; +HYDR-3516 PO; +LEVA750T PO; -TRAM50TA PO; -WARF-23 PO
[2017-02-22] MEDS ORDERED: MELA5TAB15 PO (12:14)
[2017-02-22] MEDS ORDERED: SODIUM CHLORIDE 0.9% FLUSH 10 ML FLUSH IVF PRN (12:15)
--- NOTE | 2017-02-22 12:15 | PD ---
HPI Chief Complaint: Fall Time Seen by Provider: 12:14 Travel History International Travel<30 days: No Contact w/Intl Traveler<30days: No Traveled to known affect area: No History of Present Illness HPI 81-year-old male with PMH of A. fib, GERD, hypertension, chronic back and right hip pain ON COUMADIN presents to the ED via EMS after being found down by a neighbor this morning. On presentation the patient is unsure what happened, thinks that he might have been kidnapped. According the EMS the neighbor found the patient down on the floor of the living room this morning with debris scattered around the room. Neighbor also stated that everything was fine last night. On presentation the patient denies fevers, chills, headache, dizziness, blurred vision, chest pain, palpitations, shortness of breath, abdominal pain, nausea, vomiting, dysuria. He endorses chronic low back and hip pain, no worse today. Patient states he was recently discharged from rehabilitation after hospitalization for bilateral lower leg cellulitis. PFSH Past Medical History Hx Anticoagulant Therapy: Yes Arthritis: Yes (Both hands and right hip) Atrial Fibrillation: Yes Blood Disorders: Yes Anxiety: No Depression: No Heart Rhythm Problems: Yes (A FIB) Cancer: Yes (Prostate cancer) Cardiovascular Problems: Yes High Cholesterol: No Chemotherapy: No Chest Pain: No Congestive Heart Failure: No Cerebrovascular Accident: No Diabetes: No Endocrine: No GERD: Yes Genitourinary: No Headaches: Yes Hypertension: Yes Immune Disorder: No Psychiatric: No Reproductive: No Respiratory: No Migraines: No Radiation Therapy: Yes (a year after removal) Seizures: No Tetanus Vaccination: Unknown Influenza Vaccination: Yes Past Surgical History Abdominal Surgery: Yes (appendectomy) Appendectomy: Yes Genitourinary Surgery: Yes (removed prostate) Prostatectomy: Yes Other Surgery: Yes Social History Alcohol Use: Yes (1 beer daily) Tobacco Use: No Substance Use: No Allergies-Medications (Allergen,Severity, Reaction): Coded Allergies: Sulfa (Verified Allergy, Severe, 02/22/17) Tetanus Immune Globulin (Verified Allergy, Severe, Swelling, 02/22/17) Reported Meds & Prescriptions Reported Meds & Active Scripts Active Digoxin 0.125 Mg Tab 0.125 Mg PO DAILY 30 Days Hydrocodone-Acetaminophen 5-325 mg Tab 1 Tab PO Q4H PRN Metoprolol Tartrate 50 Mg Tab 100 Mg PO BID 30 Days Reported Acetaminophen 325 Mg Capsule 325 Mg PO Q4HR Milk of Johnathan Liq (Magnesium Hydroxide) 400 Mg/5 Ml Susp 30 Ml PO DAILY PRN Dulcolax Supp (Bisacodyl) 10 Mg Supp 10 Mg RECTAL DAILY PRN Gentamicin Sulfate 5 Gm Powder 0.1 % TOPICAL HS PRN Melatonin 5 Mg Tab 5 Mg PO HS Ranitidine (Ranitidine HCl) 300 Mg Cap 300 Mg PO BID Coumadin (Warfarin) 2.5 Mg Tab 2.5 Mg PO DAILY Bumetanide 2 Mg Tab 2 Mg PO DAILY PRN Cartia Xt (Diltiazem ER 24 HR) 300 Mg Caper 300 Mg PO DAILY Review of Systems Except as stated in HPI: all other systems reviewed are Neg Physical Exam Narrative GENERAL: Well-nourished, well-developed white male in no acute distress. On a backboard, wearing a c-collar. SKIN: Warm and dry. Multiple old ecchymosis, scattered new skin tears of the bilateral upper extremities. Small, old superficial lesions of the forehead. Bilateral lower extremities edematous, erythematous, multiple wounds in various stages of healing. HEAD: Normocephalic. Atraumatic. No raccoon eyes or vicente sign. No tenderness to palpation of the skull. No bony step-offs. No malocclusion of the teeth. EYES: No scleral icterus. No injection or drainage. PERRLA. EOMI. ENT: Pearly rubio tympanic membrane is bilaterally. Nasal mucosa is moist. Oropharynx without erythema, edema or exudate. NECK: Supple, trachea midline. No JVD or lymphadenopathy. Wearing a c-collar CARDIOVASCULAR: Irregularly irregular rate and rhythm without murmurs, gallops, or rubs. 2+ DP and radial pulses bilaterally. RESPIRATORY: Breath sounds clear and equal bilaterally. No accessory muscle use. GASTROINTESTINAL: Abdomen soft, non-tender, nondistended. + Bowel sounds MUSCULOSKELETAL: No tenderness to palpation of the joints of the upper extremities. Mildly tender to palpation of the right hip. Patient is able to flex and extend the knees, ankles and toes bilaterally. NEUROLOGICAL: Awake and alert. Cranial nerves II through XII intact. Motor and sensory grossly within normal limits. 5/5 muscle strength in all muscle groups. Normal speech. BACK: Nontender without obvious deformity. No CVA tenderness. + Midthoracic midline tenderness. Data Data Last Documented VS Vital Signs Date Time Temp Pulse Resp B/P Pulse Ox O2 Delivery O2 Flow Rate FiO2 02/22/17 12:20 18 97 Room Air 02/22/17 12:04 77 107/68 02/22/17 11:58 99.1 Orders Electrocardiogram (02/22/17 12:11) Complete Blood Count With Diff (02/22/17 12:11) Comprehensive Metabolic Panel (02/22/17 12:11) B-Type Natriuretic Peptide (02/22/17 12:11) Ckmb (Isoenzyme) Profile (02/22/17 12:11) Troponin I (02/22/17 12:11) Act Partial Throm Time (Ptt) (02/22/17 12:11) Prothrombin Time / Inr (Pt) (02/22/17 12:11) Urinalysis - C+S If Indicated (02/22/17 12:11) Chest, Single Ap (02/22/17 12:11) Ct Brain W/O Iv Contrast(Rout) (02/22/17 12:11) Ct Cerv Spine W/O Contrast (02/22/17 12:11) Ecg Monitoring (02/22/17 12:11) Iv Access Insert/Monitor (02/22/17 12:11) Oximetry (02/22/17 12:11) Sodium Chloride 0.9% Flush (Ns Flush) (02/22/17 12:15) Hip, Uni(Ap&Lat) W Ap Pelvis (02/22/17 12:11) Blood Culture (02/22/17 12:14) Spine, Thoracic-Ap/Lat/Sw(3vw) (02/22/17 12:46) CKMB (02/22/17 12:25) CKMB% (02/22/17 12:25) Urinary Catheter Insert/Apply (02/22/17 13:13) Sodium Chlorid 0.9% 500 Ml Inj (Ns 500 M (02/22/17 13:15) Lactic Acid (02/22/17 13:22) Vancomycin Inj (Vancomycin Inj) (02/22/17 13:30) Admit Order (Ed Use Only) (02/22/17 13:59) Labs Laboratory Tests Test 02/22/17 12:25 White Blood Count 18.8 TH/MM3 Red Blood Count 4.82 MIL/MM3 Hemoglobin 15.0 GM/DL Hematocrit 45.0 % Mean Corpuscular Volume 93.3 FL Mean Corpuscular Hemoglobin 31.1 PG Mean Corpuscular Hemoglobin 33.4 % Concent Red Cell Distribution Width 15.3 % Platelet Count 717 TH/MM3 Mean Platelet Volume 8.1 FL Neutrophils (%) (Auto) 83.9 % Lymphocytes (%) (Auto) 4.6 % Monocytes (%) (Auto) 10.8 % Eosinophils (%) (Auto) 0.2 % Basophils (%) (Auto) 0.5 % Neutrophils # (Auto) 15.8 TH/MM3 Lymphocytes # (Auto) 0.9 TH/MM3 Monocytes # (Auto) 2.0 TH/MM3 Eosinophils # (Auto) 0.0 TH/MM3 Basophils # (Auto) 0.1 TH/MM3 CBC Comment DIFF FINAL Differential Comment Prothrombin Time 71.2 SEC Prothromb Time International 6.0 RATIO Ratio Activated Partial 57.0 SEC Thromboplast Time Sodium Level 139 MEQ/L Potassium Level 3.8 MEQ/L Chloride Level 100 MEQ/L Carbon Dioxide Level 29.3 MEQ/L Anion Gap 10 MEQ/L Blood Urea Nitrogen 51 MG/DL Creatinine 2.07 MG/DL Estimat Glomerular Filtration 31 ML/MIN Rate Random Glucose 134 MG/DL Calcium Level 8.9 MG/DL Total Bilirubin 1.0 MG/DL Aspartate Amino Transf 49 U/L (AST/SGOT) Alanine Aminotransferase 44 U/L (ALT/SGPT) Alkaline Phosphatase 114 U/L Total Creatine Kinase 593 U/L Creatine Kinase MB 7.2 NG/ML Creatine Kinase MB % 1.2 % Troponin I 0.02 NG/ML B-Type Natriuretic Peptide 158 PG/ML Total Protein 6.8 GM/DL Albumin 2.8 GM/DL MDM Medical Decision Making Medical Screen Exam Complete: Yes Emergency Medical Condition: Yes Medical Record Reviewed: Yes (recent admission for cellulitis, HUGO, A. fib with RVR) Differential Diagnosis Syncope versus cellulitis versus ACS versus ICH versus HUGO versus electrolyte abnormality versus anemia versus other Narrative Course 81-year-old male with PMH of A. fib, GERD, hypertension, chronic back and right hip pain ON COUMADIN presents to the ED via EMS after being found down by a neighbor this morning. On presentation the patient is unsure what happened, thinks that he might have been kidnapped. According the EMS the neighbor found the patient down on the floor of the living room this morning with debris scattered around the room. Neighbor also stated that everything was fine last night. Patient states he was recently discharged from rehabilitation after hospitalization for bilateral lower leg cellulitis. Temp 99.1, pulse 78, BP 107 /68 on presentation. Physical exam reveals an alert, oriented white male in no acute distress. No focal neurological deficits. Irregularly irregular rate, no appreciable M/R/G. Abdomen soft, nontender, chest CTAB. Tenderness to palpation of the midthoracic spine and the right hip. Old ecchymosis of the bilateral upper extremities. Bilateral lower extremities edematous, erythematous, multiple wounds in various stages of healing, right leg appearing warm and cellulitic. IV established. Patient placed on continuous monitoring. Cultures were obtained. CBC: WBC 18.8 with left shift. Hemoglobin 15. INR 6.0. CMP: BUN 51, creatinine 2.07. Lactic: 1.9 UA: no culture indicated EKG: Rate 99, A. fib, marked artifact. Reviewed by Dr. Reeves. Cardiac enzymes: Negative 1. BNP: 158 CXR: No acute cardiopulmonary disease. CT head and neck: negative per radiology read. XR right hip: No acute fracture noted. XR thoracic spine: No acute disease per radiology read. Patient's followed by Dr. Tremayne Welch. Despite supratherapeutic INR the patient denies hematuria, melena, hematochezia. Patient is administered 1 L normal saline, 1 g vancomycin IV. Urinary catheter placed. Patient is agreeable to admission. I spoke with Dr. Pacheco who agrees to accept the patient to the medicine service. Please see medicine notes for disposition. Sepsis Criteria SIRS Criteria (2 or more): WBC > 79273, < 4000 or > 10% bands Sepsis Criteria (SIRS+source): Infect source susp/known Severe Sepsis (+one): Acute Oliguria/Renal Failure Mitra Johnson Feb 22, 2017 12:14
[2017-02-22] MEDS ORDERED: MILKSUS PO (12:20)
[2017-02-22] MEDS ORDERED: DULC10SU3 RECTAL (12:20)
[2017-02-22] MEDS ORDERED: ACET325C PO (12:20)
[2017-02-22] MEDS ORDERED: [UNRECOGNIZED DRUG - CODE] TOPICAL (12:20)
[2017-02-22 12:48] LABS: AUTOMATED NEUTROPHIL # 15.8 TH/MM3 (1.8-7.7); BASOPHIL # 0.1 TH/MM3 (0-0.2); BASOPHIL % 0.5 % (0.0-2.0); EOSINOPHIL % 0.2 % (0.0-4.0); HEMO FLAGS DIFF FINAL; LYMPH % 4.6 % (9.0-44.0); LYMPHOCYTE # 0.9 TH/MM3 (1.0-4.8); MEAN CELL VOLUME 93.3 FL (80.0-100.0); MEAN CORPUSCULAR HEMOGLOBIN 31.1 PG (27.0-34.0); MEAN CORPUSCULAR HGB CONC 33.4 % (32.0-36.0); MONO % 10.8 % (0.0-8.0); NEUT % 83.9 % (16.0-70.0); PLATELET COUNT 717 TH/MM3 (150-450); RED BLOOD COUNT 4.82 MIL/MM3 (4.50-5.90); RED CELL DISTRIBUTION WIDTH 15.3 % (11.6-17.2); WHITE BLOOD COUNT 18.8 TH/MM3 (4.0-11.0)
[2017-02-22 12:56] LABS: PROTHROMBIN TIME - PATIENT 71.2 SEC (9.8-11.6)
--- NOTE | 2017-02-22 12:58 | RADRPT ---
EXAM DATE/TIME: 02/22/2017 12:34 [facility] COMPARISON: CT BRAIN W/O CONTRAST, January 29, 2017, 19:49. INDICATIONS : Confusion, syncope RADIATION DOSE: 41.38 CTDIvol (mGy) MEDICAL HISTORY : Cardiovascular disease. Hypertension. Carcinoma, prostate. SURGICAL HISTORY : Appendectomy. Prostatectomy. ENCOUNTER: Initial ACUITY: 1 day PAIN SCALE: 0/10 LOCATION: cranial TECHNIQUE: Multiple contiguous axial images were obtained of the head. Using automated exposure control and adj ustment of the mA and/or kV according to patient size, radiation dose was kept as low as reasonably a chievable to obtain optimal diagnostic quality images. FINDINGS: CEREBRUM: The ventricles are normal for age. No evidence of midline shift, mass lesion, hemorrhage or acute in farction. No extra-axial fluid collections are seen. POSTERIOR FOSSA: The cerebellum and brainstem are intact. The 4th ventricle is midline. The cerebellopontine angle i s unremarkable. EXTRACRANIAL: The visualized portion of the orbits is intact. SKULL: The calvaria is intact. No evidence of skull fracture. CONCLUSION: No acute disease. Keny Huynh Jr., MD on February 22, 2017 at 12:51 Board Certified Radiologist. This report was verified electronically.
[2017-02-22 13:01] LABS: ANION GAP 10 MEQ/L (5-15); AST (GOT) 49 U/L (15-37); BICARBONATE 29.3 MEQ/L (21.0-32.0); BLOOD UREA NITROGEN 51 MG/DL (7-18); CHLORIDE 100 MEQ/L (98-107); GLOMERULAR FILTRATION RATE 31 ML/MIN (>89); POTASSIUM 3.8 MEQ/L (3.5-5.1); SODIUM (NA) 139 MEQ/L (136-145)
[2017-02-22 13:06] LABS: ALKALINE PHOSPHATASE 114 U/L (45-117); ALT (GPT) 44 U/L (12-78); CREATINE KINASE 593 U/L (39-308)
--- NOTE | 2017-02-22 13:13 | RADRPT ---
EXAM DATE/TIME: 02/22/2017 12:34 [facility] COMPARISON: CT CERVICAL SPINE W/O CONTRAST, January 29, 2017, 19:49. INDICATIONS : Confusion, syncope RADIATION DOSE: 21.54 CTDIvol (mGy) MEDICAL HISTORY : Cardiovascular disease. Hypertension. Carcinoma, prostate. SURGICAL HISTORY : Appendectomy. Prostatectomy. ENCOUNTER: Initial ACUITY: 1 day PAIN SCALE: 3/10 LOCATION: neck TECHNIQUE: Volumetric scanning of the cervical spine was performed. Multiplanar reconstructions in the sagittal, coronal and oblique axial planes were performed. Using automated exposure control and adjustment o f the mA and/or kV according to patient size, radiation dose was kept as low as reasonably achievable to obtain optimal diagnostic quality images. 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 ALIGNMENT: There is a gentle curvature with concavity towards the patient's right felt to be positional. C2-C3: Disc space narrowing with broad-based disc osteophyte complex that mildly flattens the ventral portio n of the central canal. Bony uncovertebral hypertrophy with bilateral neural foraminal narrowing and lateral recess narrowing. C3-C4: Disc space narrowing with broad-based disc osteophyte complex with central canal stenosis. Anterior t o posterior dimension of the central canal in the midline is 9 mm. Prominent bony uncovertebral hyper trophy totally effaces the right lateral recess and causes moderate narrowing of the left lateral rec ess. Significant bilateral neural foraminal narrowing. C4-C5: Disc space narrowing with broad-based disc osteophyte complex with mild central canal stenosis. Promi nent bony uncovertebral hypertrophy totally effaces the right lateral recess and causes moderate narr owing of the left lateral recess. Significant bilateral neural foraminal narrowing. C5-C6: Disc space narrowing with broad-based disc osteophyte complex and significant central canal stenosis. Central canal measures 7 mm in the midline. Prominent bony uncovertebral hypertrophy effaces the lat eral recesses bilaterally and causes significant bilateral neural foraminal narrowing. C6-C7: Disc space narrowing and broad-based disc osteophyte complex causing central canal stenosis. Central canal measures 9 mm in the midline. Bony uncovertebral hypertrophy generates narrowing of the lateral recesses and neural foramina bilaterally. C7-T1: The bony spinal canal is normal in size. No evidence of disc bulge or herniation. The neural forami na are bilaterally patent. CONCLUSION: 1. No acute fracture or dislocation. 2. Pronounced multilevel degenerative changes as detailed in the above discussion. Keny Huynh Jr., MD on February 22, 2017 at 13:05 Board Certified Radiologist. This report was verified electronically.
[2017-02-22] MEDS ORDERED: SODIUM CHLORID 0.9% 500 ML INJ 500 ML IV ONE (13:15)
[2017-02-22 13:18] LABS: CKMB 7.2 NG/ML (0.5-3.6)
--- NOTE | 2017-02-22 13:28 | PD ---
Physical Exam Narrative GENERAL: Disheveled, well-developed patient. SKIN: Open sores noted diffusely to bilateral lower extremities, erythema and warmth noted to entire right lower extremity. No underlying abscess HEAD: Normocephalic. EYES: No injection or drainage. ENT: No nasal drainage noted. NECK: Supple, trachea midline. C-collar in place CARDIOVASCULAR: Regular rate and rhythm RESPIRATORY: No increased effort. No accessory muscle use. EXTREMITIES: Edema noted to bilateral lower extremities, no specific joint pain NEUROLOGICAL: Awake. Moves all extremities. Normal speech. Data Data Last Documented VS Vital Signs Date Time Temp Pulse Resp B/P Pulse Ox O2 Delivery O2 Flow Rate FiO2 02/22/17 12:20 18 97 Room Air 02/22/17 12:04 77 107/68 02/22/17 11:58 99.1 Orders Electrocardiogram (02/22/17 12:11) Complete Blood Count With Diff (02/22/17 12:11) Comprehensive Metabolic Panel (02/22/17 12:11) B-Type Natriuretic Peptide (02/22/17 12:11) Ckmb (Isoenzyme) Profile (02/22/17 12:11) Troponin I (02/22/17 12:11) Act Partial Throm Time (Ptt) (02/22/17 12:11) Prothrombin Time / Inr (Pt) (02/22/17 12:11) Urinalysis - C+S If Indicated (02/22/17 12:11) Chest, Single Ap (02/22/17 12:11) Ct Brain W/O Iv Contrast(Rout) (02/22/17 12:11) Ct Cerv Spine W/O Contrast (02/22/17 12:11) Ecg Monitoring (02/22/17 12:11) Iv Access Insert/Monitor (02/22/17 12:11) Oximetry (02/22/17 12:11) Sodium Chloride 0.9% Flush (Ns Flush) (02/22/17 12:15) Hip, Uni(Ap&Lat) W Ap Pelvis (02/22/17 12:11) Blood Culture (02/22/17 12:14) Spine, Thoracic-Ap/Lat/Sw(3vw) (02/22/17 12:46) CKMB (02/22/17 12:25) CKMB% (02/22/17 12:25) Urinary Catheter Insert/Apply (02/22/17 13:13) Sodium Chlorid 0.9% 500 Ml Inj (Ns 500 M (02/22/17 13:15) Lactic Acid (02/22/17 13:22) Vancomycin Inj (Vancomycin Inj) (02/22/17 13:30) Admit Order (Ed Use Only) (02/22/17 13:59) Labs Laboratory Tests Test 02/22/17 12:25 White Blood Count 18.8 TH/MM3 Red Blood Count 4.82 MIL/MM3 Hemoglobin 15.0 GM/DL Hematocrit 45.0 % Mean Corpuscular Volume 93.3 FL Mean Corpuscular Hemoglobin 31.1 PG Mean Corpuscular Hemoglobin 33.4 % Concent Red Cell Distribution Width 15.3 % Platelet Count 717 TH/MM3 Mean Platelet Volume 8.1 FL Neutrophils (%) (Auto) 83.9 % Lymphocytes (%) (Auto) 4.6 % Monocytes (%) (Auto) 10.8 % Eosinophils (%) (Auto) 0.2 % Basophils (%) (Auto) 0.5 % Neutrophils # (Auto) 15.8 TH/MM3 Lymphocytes # (Auto) 0.9 TH/MM3 Monocytes # (Auto) 2.0 TH/MM3 Eosinophils # (Auto) 0.0 TH/MM3 Basophils # (Auto) 0.1 TH/MM3 CBC Comment DIFF FINAL Differential Comment Prothrombin Time 71.2 SEC Prothromb Time International 6.0 RATIO Ratio Activated Partial 57.0 SEC Thromboplast Time Sodium Level 139 MEQ/L Potassium Level 3.8 MEQ/L Chloride Level 100 MEQ/L Carbon Dioxide Level 29.3 MEQ/L Anion Gap 10 MEQ/L Blood Urea Nitrogen 51 MG/DL Creatinine 2.07 MG/DL Estimat Glomerular Filtration 31 ML/MIN Rate Random Glucose 134 MG/DL Calcium Level 8.9 MG/DL Total Bilirubin 1.0 MG/DL Aspartate Amino Transf 49 U/L (AST/SGOT) Alanine Aminotransferase 44 U/L (ALT/SGPT) Alkaline Phosphatase 114 U/L Total Creatine Kinase 593 U/L Creatine Kinase MB 7.2 NG/ML Creatine Kinase MB % 1.2 % Troponin I 0.02 NG/ML B-Type Natriuretic Peptide 158 PG/ML Total Protein 6.8 GM/DL Albumin 2.8 GM/DL MDM Supervised Visit with [facility]: Yes Interpretation(s) CBC & BMP Diagram 02/22/17 12:25 Last [address] 02/22/17 1211 Signed Impressions: Service Date/Time: Wednesday, February 22, 2017 12:34 - CONCLUSION: No acute disease. Keny Huynh Jr., MD Cervical Spine CT 02/22/17 1211 Signed Impressions: Service Date/Time: Wednesday, February 22, 2017 12:34 - CONCLUSION: 1. No acute fracture or dislocation. 2. Pronounced multilevel degenerative changes as detailed in the above discussion. Keny Huynh Jr., MD Supratherapeutic INR EKG has significant underlying artifact that limits interpretation but appears to be atrial fibrillation at 100 without STEMI criteria Narrative Course I, Dr. reeves, have reviewed the advance practice practitioner's documentation and am in agreement, met with the patient face to face, made the diagnosis, and the medical decision making was done by me. *My assessment and Findings: 81-year-old male presents status post syncopal event. Patient has cellulitic findings on his right leg with elevated white count. Lactate added on. Given vancomycin after review of microbiology. Patient has acute renal failure. [place] will be placed in gentle IV fluid hydration. Patient agrees to admission to the hospital Physician Communication Physician Communication dr pichardo agrees to admit Diagnosis Primary Impression: Acute renal failure Qualified Code: N17.9 - Acute renal failure, unspecified acute renal failure type Additional Impressions: Fall Qualified Code: W19.XXXA - Fall, initial encounter Lower extremity cellulitis Qualified Code: L03.115 - Cellulitis of right lower extremity Supratherapeutic INR Admitting Information Admitting Physician Requests: Admit Karishma Reeves MD Feb 22, 2017 13:28
[2017-02-22] MEDS ORDERED: VANCOMYCIN INJ 1,000 MG in SODIUM CHLOR 0.9% 250 ML INJ 250 ML IV ONE (13:30)
--- NOTE | 2017-02-22 13:48 | RADRPT ---
EXAM DATE/TIME: 02/22/2017 12:52 [facility] COMPARISON: CHEST SINGLE AP, January 29, 2017, 19:43. INDICATIONS : Fall. Syncope. MEDICAL HISTORY : Cardiovascular disease. Hypertension Carcinoma, prostatic. SURGICAL HISTORY : Appendectomy. Prostatectomy. ENCOUNTER: Initial ACUITY: 1 day PAIN SCORE: 9/10 LOCATION: Right hip FINDINGS: A single view of the chest demonstrates the lungs to be symmetrically aerated without evidence of mas s, infiltrate or effusion. The cardiomediastinal contours are unremarkable. Osseous structures are intact. CONCLUSION: 1. No acute cardiopulmonary disease. Dwain Juares MD on February 22, 2017 at 13:46 Board Certified Radiologist. This report was verified electronically.
--- NOTE | 2017-02-22 13:51 | RADRPT ---
EXAM DATE/TIME: 02/22/2017 13:00 [facility] COMPARISON: No previous studies available for comparison. INDICATIONS : Fall. MEDICAL HISTORY : Cardiovascular disease. Hypertension Carcinoma, prostatic. SURGICAL HISTORY : Appendectomy. Prostatectomy. ENCOUNTER: Initial ACUITY: 1 day PAIN SCORE: 9/10 LOCATION: Right hip FINDINGS: Examination of the right hip was performed with AP Pelvis. The primary and secondary trabecular bernice jeison of the femoral neck is intact. Moderate joint space narrowing and osteophyte formation. The acet abulum is grossly intact. Surgical clips are noted in the pelvis. Sacral arches appear grossly intact . Gastric calcifications involving the iliac vessels bilaterally. CONCLUSION: 1. No acute fracture or dislocation. 2. Degenerative osteoarthritis. Dwain Juares MD on February 22, 2017 at 13:47 Board Certified Radiologist. This report was verified electronically.
--- NOTE | 2017-02-22 14:10 | RADRPT ---
EXAM DATE/TIME: 02/22/2017 13:00 [facility] COMPARISON: No previous studies available for comparison. INDICATIONS : Fall. MEDICAL HISTORY : Cardiovascular disease. Hypertension Carcinoma, prostatic. SURGICAL HISTORY : Appendectomy. Prostatectomy. ENCOUNTER: Initial ACUITY: 1 day PAIN SCORE: 9/10 LOCATION: Right hip FINDINGS: There is normal alignment of the thoracic vertebral bodies. Vertebral body height is maintained. No evidence of fracture or subluxation. Diffuse disc space narrowing and mild anterior osteophyte produ ction. Pedicles are intact at all levels. The paravertebral reflections are not thickened. CONCLUSION: No acute disease. Keny Huynh Jr., MD on February 22, 2017 at 14:07 Board Certified Radiologist. This report was verified electronically.
[2017-02-22 14:15] LABS: BLOOD, URINE NEG (NEG); COMMENT (UR) CULT NOT INDICATED; CULTURE IF INDICATED CULT NOT INDICATED; GLUCOSE,URINE NEG (NEG); HYALINE CAST, URINE 3 /lpf (RARE); KETONE, URINE NEG (NEG); MUCUS URINE FEW /lpf (OCC); NITRITE,URINE NEG (NEG); URINE COLOR YELLOW (YELLW/STRAW)
[2017-02-22] MEDS ORDERED: SENNOSIDES 8.6 MG TAB PO PRN (14:15)
[2017-02-22] MEDS ORDERED: ONDANSETRON HCL 4 MG/2 ML VIAL IVP PRN (14:15)
[2017-02-22] MEDS ORDERED: MAGNESIUM HYDROXIDE SUSP 30 ML CUP PO PRN (14:15)
[2017-02-22] MEDS ORDERED: NALOXONE HCL 0.4 MG/ML AMP IV PRN (14:15)
[2017-02-22] MEDS ORDERED: BISACODYL 10 MG SUPP RECTAL PRN (14:15)
[2017-02-22] MEDS ORDERED: SODIUM CHLORIDE 0.9% FLUSH 10 ML FLUSH IV FLUSH PRN (14:15)
[2017-02-22] MEDS ORDERED: LACTULOSE SYRUP 20 GM/30 ML CUP PO PRN (14:15)
[2017-02-22] MEDS: SODIUM CHLOR 0.9% 1000 ML INJ 1,000 ML IV SCH (14:30)
--- NOTE | 2017-02-22 15:21 | HHI.HP ---
HPI Service [facility] Primary Care Physician Unknown Admission Diagnosis bilateral lower extremity cellulitis, supratherapeutic INR, HUGO Diagnoses: (1) Sepsis Diagnosis: Principal (2) Acute renal failure Diagnosis: Principal (3) Supratherapeutic INR Diagnosis: Principal (4) Lower extremity cellulitis Diagnosis: Principal (5) Fall Diagnosis: Principal Travel History International Travel<30 Days: No Contact w/Intl Traveler <30 Da: No Traveled to Known Affected Are: No Sepsis Criteria SIRS Criteria (2 or more): WBC > 83100, < 4000 or > 10% bands Sepsis Criteria (SIRS+source): Infect source susp/known History of Present Illness Mr. Shea is a 81-year-old male. He is returned to the hospital today secondary to bilateral lower extremity infections with the most prominent infection of the right lower extremity. This has been a problem in the past. Risks for infections include multiple open wounds at the arms and bilateral legs secondary to frequent falls. He has been here for cellulitis previously on 01/29/17. He states for about 5 days and then discharged to a retirement facility. He stated retirement facility for about 9 days and received antibiotics both inpatient and after discharging to SNF. After stopping antibiotics he reports that he has had a progressive worsening again of his lower extremity cellulitis. He denies any fevers. Presently she has leukocytosis. No tachycardia, no tachypnea, no fever. He does not meet sepsis criteria. However he does have this outpatient treatment failure of lower extremity cellulitis. Other baseline conditions include atrial fibrillation for which she is on Coumadin. Coumadin is hypertherapeutic today. No signs of acute bleeding, he has some dried bleeding superficial wounds of the arms and legs. Renal function was normal at discharge. Today patient shows acute renal failure which may be secondary to infections and possible dehydration. Review of Systems Constitutional: DENIES: Fatigue, Fever, Chills Eyes: DENIES: Blurred vision, Diplopia Ears, nose, mouth, throat: DENIES: Hearing loss, Vertigo Respiratory: DENIES: Cough, Wheezing, Shortness of breath Cardiovascular: DENIES: Chest pain, Palpitations, Syncope Gastrointestinal: DENIES: Abdominal pain, Black stools, Bloody stools Musculoskeletal: DENIES: Joint pain, Muscle aches Integumentary: DENIES: Abnormal pigmentation Hematologic/lymphatic: DENIES: Bruising Immunologic/allergic: DENIES: Eczema Neurologic: COMPLAINS OF: Abnormal gait, Poor Balance Psychiatric: DENIES: Anxiety, Confusion Past Family Social History Past Medical History Hypertension Prostate cancer history Atrial fibrillation Chronic back pain Spinal stenosis Past Surgical History Appendectomy Prostatectomy Reported Medications Reported Meds & Active Scripts Active Digoxin 0.125 Mg Tab 0.125 Mg PO DAILY 30 Days Hydrocodone-Acetaminophen 5-325 mg Tab 1 Tab PO Q4H PRN Metoprolol Tartrate 50 Mg Tab 100 Mg PO BID 30 Days Reported Acetaminophen 325 Mg Capsule 325 Mg PO Q4HR Milk of Magnesia Liq (Magnesium Hydroxide) 400 Mg/5 Ml Susp 30 Ml PO DAILY PRN Dulcolax Supp (Bisacodyl) 10 Mg Supp 10 Mg RECTAL DAILY PRN Gentamicin Sulfate 5 Gm Powder 0.1 % TOPICAL HS PRN Melatonin 5 Mg Tab 5 Mg PO HS Ranitidine (Ranitidine HCl) 300 Mg Cap 300 Mg PO BID Coumadin (Warfarin) 2.5 Mg Tab 2.5 Mg PO DAILY Bumetanide 2 Mg Tab 2 Mg PO DAILY PRN Cartia Xt (Diltiazem ER 24 HR) 300 Mg Caper 300 Mg PO DAILY Allergies: Coded Allergies: Sulfa (Verified Allergy, Severe, 02/22/17) Tetanus Immune Globulin (Verified Allergy, Severe, Swelling, 02/22/17) Active Ordered Medications Administered Medications Medications (Trade) Dose Ordered Sig/Сергей Route PRN Reason Start Time Stop Time Status Last Admin Dose Admin Sodium Chloride (NS 1000 ml Inj) 1,000 ml @ 100 mls/hr Q10H IV 02/22/17 14:02 02/22/17 14:30 Family History No history of disease in mother or father Social History One beer daily No tobacco use No drug abuse Physical Exam Vital Signs Vital Signs Date Time Temp Pulse Resp B/P Pulse Ox O2 Delivery O2 Flow Rate FiO2 02/22/17 12:20 18 97 Room Air 02/22/17 12:04 77 18 107/68 97 Room Air 02/22/17 12:03 76 20 97 Room Air 02/22/17 11:58 99.1 78 18 107/68 97 Physical Exam GENERAL: NAD, A&Ox3 SKIN: Warm and dry. Multiple abrasions and excoriations at bilateral arms and lower extremities and multiple stages of healing. Below the knee of the right leg there is an indurated erythematous and purulent smelling when with areas of purulence at ulcers throughout the lower leg. HEAD: Normocephalic. EYES: No scleral icterus. No injection or drainage. NECK: Supple, trachea midline. No JVD or lymphadenopathy. CARDIOVASCULAR: Regular rate and rhythm without murmurs, gallops, or rubs. RESPIRATORY: Breath sounds equal bilaterally. No accessory muscle use. GASTROINTESTINAL: Abdomen soft, non-tender, nondistended. MUSCULOSKELETAL: No cyanosis, lower extremity edema is present bilaterally. Laboratory Laboratory Tests Test 02/22/17 02/22/17 12:25 14:05 White Blood Count 18.8 Red Blood Count 4.82 Hemoglobin 15.0 Hematocrit 45.0 Mean Corpuscular Volume 93.3 Mean Corpuscular Hemoglobin 31.1 Mean Corpuscular Hemoglobin 33.4 Concent Red Cell Distribution Width 15.3 Platelet Count 717 Mean Platelet Volume 8.1 Neutrophils (%) (Auto) 83.9 Lymphocytes (%) (Auto) 4.6 Monocytes (%) (Auto) 10.8 Eosinophils (%) (Auto) 0.2 Basophils (%) (Auto) 0.5 Neutrophils # (Auto) 15.8 Lymphocytes # (Auto) 0.9 Monocytes # (Auto) 2.0 Eosinophils # (Auto) 0.0 Basophils # (Auto) 0.1 CBC Comment DIFF FINAL Differential Comment Prothrombin Time 71.2 Prothromb Time International 6.0 Ratio Activated Partial 57.0 Thromboplast Time Sodium Level 139 Potassium Level 3.8 Chloride Level 100 Carbon Dioxide Level 29.3 Anion Gap 10 Blood Urea Nitrogen 51 Creatinine 2.07 Estimat Glomerular Filtration 31 Rate Random Glucose 134 Calcium Level 8.9 Total Bilirubin 1.0 Aspartate Amino Transf 49 (AST/SGOT) Alanine Aminotransferase 44 (ALT/SGPT) Alkaline Phosphatase 114 Total Creatine Kinase 593 Creatine Kinase MB 7.2 Creatine Kinase MB % 1.2 Troponin I 0.02 B-Type Natriuretic Peptide 158 Total Protein 6.8 Albumin 2.8 Urine Color YELLOW Urine Turbidity CLEAR Urine pH 5.0 Urine Specific [place] 1.014 Urine Protein TRACE Urine Glucose (UA) NEG Urine Ketones NEG Urine Occult Blood NEG Urine Nitrite NEG Urine Bilirubin NEG Urine Urobilinogen LESS THAN 2.0 Urine Leukocyte Esterase NEG Urine RBC 1 Urine WBC LESS THAN 1 Urine Hyaline Casts 3 Urine Mucus FEW Microscopic Urinalysis Comment CULT NOT INDICATED Lactic Acid Level 1.9 Date/Time Procedure Status Source Growth 02/22/17 12:30 Aerobic Blood Culture Received Blood Line Pending 02/22/17 12:30 Anaerobic Blood Culture Received Blood Line Pending Result Diagram: 02/22/17 1225 02/22/17 1225 Imaging Last Impressions Thoracic Spine X-Ray 02/22/17 1246 Signed Impressions: Service Date/Time: Wednesday, February 22, 2017 13:00 - CONCLUSION: No acute disease. Keny Huynh Jr., MD Hip and Pelvis X-Ray 02/22/17 1211 Signed Impressions: Service Date/Time: Wednesday, February 22, 2017 13:00 - CONCLUSION: 1. No acute fracture or dislocation. 2. Degenerative osteoarthritis. Dwain Juares MD Head CT 02/22/17 1211 Signed Impressions: Service Date/Time: Wednesday, February 22, 2017 12:34 - CONCLUSION: No acute disease. Keny Huynh Jr., MD Chest X-Ray 02/22/17 1211 Signed Impressions: Service Date/Time: Wednesday, February 22, 2017 12:52 - CONCLUSION: 1. No acute cardiopulmonary disease. Dwain Juares MD Cervical Spine CT 02/22/17 1211 Signed Impressions: Service Date/Time: Wednesday, February 22, 2017 12:34 - CONCLUSION: 1. No acute fracture or dislocation. 2. Pronounced multilevel degenerative changes as detailed in the above discussion. Keny Huynh Jr., MD Assessment and Plan Problem List: (1) Failure of outpatient treatment ICD Code: Z78.9 Status: Acute (2) Acute renal failure ICD Code: N17.9 Status: Acute (3) Supratherapeutic INR ICD Code: R79.1 Status: Acute (4) Lower extremity cellulitis ICD Code: L03.119 Status: Acute (5) Fall ICD Code: W19.XXXA Status: Acute Assessment and Plan Assessment and plan 81-year-old male admitted with right lower extremity cellulitis and left lower extremity cellulitis, acute renal failure, and hypertherapeutic INR Left lower extremity cellulitis Right lower extremity cellulitis Outpatient treatment failure Right side infection is worsening left Vancomycin, at renal dosing with expectation for improvement to time IV hydration Monitor for signs of sepsis Hypertherapeutic INR No active bleeding Follow INR for now and hold Coumadin. Acute renal failure IV hydration overnight Follow renal function Treat infection If no improvement consult nephrology Frequent falls Start Physical therapy once patient is more stable Hypertension Continue baseline treatments Follow blood pressure Adjust if needed Prostate cancer history Follows in outpatient Atrial fibrillation Patient will be continued on Coumadin Hypertherapeutic for now Follow INR Monitor on telemetry Chronic back pain Spinal stenosis When necessary pain treatments Start physical therapy soon DVT prophylaxis Patient is hypertherapeutic on Coumadin Physician Certification 2 Midnight Certification Type: Admission for Inpatient Services Order for Inpatient Services The services are ordered in accordance with Medicare regulations or non- Medicare payer requirements, as applicable. In the case of services not specified as inpatient-only, they are appropriately provided as inpatient services in accordance with the 2-midnight benchmark. Estimated LOS (days): 2 days is the estimated time the patient will need to remain in the hospital, assuming treatment plan goals are met and no additional complications. Post-Hospital Plan: Home Problem Qualifiers (1) Acute renal failure: Qualified Code: N17.9 - Acute renal failure, unspecified acute renal failure type (2) Lower extremity cellulitis: Qualified Code: L03.115 - Cellulitis of right lower extremity (3) Fall: Qualified Code: W19.XXXA - Fall, initial encounter Mahesh Pacheco MD Feb 22, 2017 3:21 pm
[2017-02-22] MEDS ORDERED: Vancomycin Consult Pharmacy 1 EA OTHER SCH (15:30)
[2017-02-22] MEDS: LACTOBACILLUS ACIDOPHILUS TAB PO SCH (17:15)
[2017-02-22 20:06] LABS: CKMB 6.1 NG/ML (0.5-3.6)
[2017-02-22] MEDS: SODIUM CHLORIDE 0.9% FLUSH 10 ML FLUSH IV FLUSH SCH (20:58)
[2017-02-22] MEDS: DOCUSATE SODIUM 50 MG/SENNA 8.6 MG TAB PO SCH (20:58)
[2017-02-23] VITALS (9 sets, daily range): BP systolic 102–131; BP diastolic 57–73; PULSE 83–129; RESP 18–20; TEMP 97.5–98.7; O2SAT 96–98
[2017-02-23] MEDS: SODIUM CHLOR 0.9% 1000 ML INJ 1,000 ML IV SCH ×3 (00:02→20:02)
[2017-02-23 02:04] LABS: CKMB 3.7 NG/ML (0.5-3.6)
[2017-02-23] MEDS ORDERED: VANCOMYCIN INJ 1,750 MG in SODIUM CHLORID 0.9% 500 ML INJ 500 ML IV ONE (06:00)
[2017-02-23 07:58] LABS: PROTHROMBIN TIME - PATIENT 75.3 SEC (9.8-11.6)
[2017-02-23 07:59] LABS: AUTOMATED NEUTROPHIL # 12.4 TH/MM3 (1.8-7.7); BASOPHIL # 0.1 TH/MM3 (0-0.2); BASOPHIL % 0.4 % (0.0-2.0); EOSINOPHIL # 0.1 TH/MM3 (0-0.4); EOSINOPHIL % 0.6 % (0.0-4.0); HEMATOCRIT 40.3 % (39.0-51.0); HEMO FLAGS DIFF FINAL; LYMPH % 6.1 % (9.0-44.0); LYMPHOCYTE # 0.9 TH/MM3 (1.0-4.8); MEAN CELL VOLUME 93.1 FL (80.0-100.0); MEAN CORPUSCULAR HEMOGLOBIN 30.7 PG (27.0-34.0); MONO % 11.9 % (0.0-8.0); PLATELET COUNT 506 TH/MM3 (150-450); RED BLOOD COUNT 4.33 MIL/MM3 (4.50-5.90); RED CELL DISTRIBUTION WIDTH 15.3 % (11.6-17.2); WHITE BLOOD COUNT 15.3 TH/MM3 (4.0-11.0)
[2017-02-23 08:02] LABS: INTERNATIONAL NORMALIZED RATIO 6.3 RATIO
[2017-02-23] MEDS: LACTOBACILLUS ACIDOPHILUS TAB PO SCH ×3 (08:47→18:00)
[2017-02-23] MEDS: DOCUSATE SODIUM 50 MG/SENNA 8.6 MG TAB PO SCH ×2 (08:48→21:00)
[2017-02-23] MEDS: SODIUM CHLORIDE 0.9% FLUSH 10 ML FLUSH IV FLUSH SCH ×2 (08:49→21:00)
[2017-02-23] MEDS ORDERED: VANCOMYCIN INJ 1,000 MG in SODIUM CHLOR 0.9% 250 ML INJ 250 ML IV SCH (09:00)
--- NOTE | 2017-02-23 13:54 | HHI.PR ---
Subjective Remarks Improvement in leukocytosis. Leukocytosis not yet back to normal. Subjectively patient does not notice any improvement compared to yesterday. He has not yet been out of bed. Objective Vital Signs Date Time Temp Pulse Resp B/P Pulse Ox O2 Delivery O2 Flow Rate FiO2 02/23/17 04:34 98.5 108 20 102/68 96 02/23/17 00:17 98.3 107 20 104/73 98 02/22/17 20:00 86 02/22/17 19:38 98.8 95 20 99/59 99 02/22/17 16:00 97.5 86 20 121/67 98 02/22/17 15:42 69 20 114/70 97 Room Air I/O 02/22/17 02/22/17 02/22/17 02/23/17 02/23/17 02/23/17 07:00 15:00 23:00 07:00 15:00 23:00 Intake Total 1167 ml 860 ml Output Total 850 ml 350 ml Balance 317 ml 510 ml Intake Oral 360 ml 140 ml IV Total 807 ml 720 ml Output Urine Total 850 ml 350 ml # Bowel Movements 0 0 Result Diagram: 02/23/17 0714 02/22/17 1225 Objective Remarks GENERAL: NAD, A&Ox3 SKIN: Warm and dry. Less erythema and induration at lower extremities especially at right lower extremity which was primary infection. Excoriations on upper and lower limbs have been bandaged. HEAD: Normocephalic. EYES: No scleral icterus. No injection or drainage. NECK: Supple, trachea midline. No JVD or lymphadenopathy. CARDIOVASCULAR: Regular rate and rhythm without murmurs, gallops, or rubs. RESPIRATORY: Breath sounds equal bilaterally. No accessory muscle use. GASTROINTESTINAL: Abdomen soft, non-tender, nondistended. MUSCULOSKELETAL: No cyanosis, or edema. A/P Problem List: (1) Failure of outpatient treatment ICD Code: Z78.9 (2) Fall ICD Code: W19.XXXA (3) Acute renal failure ICD Code: N17.9 (4) Lower extremity cellulitis ICD Code: L03.119 Assessment and Plan Assessment and plan 81-year-old male admitted with right lower extremity cellulitis and left lower extremity cellulitis, acute renal failure, and hypertherapeutic INR Left lower extremity cellulitis Right lower extremity cellulitis Outpatient treatment failure Improving overnight No signs of sepsis Right side infection is worsening left Vancomycin, at renal dosing with expectation for improvement to time IV hydration Hypertherapeutic INR Not yet improving Continue to monitor INR No active bleeding Follow INR for now and hold Coumadin. Acute renal failure BMP pending IV hydration overnight Follow renal function Treat infection If no improvement consult nephrology Frequent falls Start Physical therapy once patient is more stable Hypertension Continue baseline treatments Follow blood pressure Adjust if needed Prostate cancer history Follows in outpatient Atrial fibrillation Patient will be continued on Coumadin Hypertherapeutic for now Follow INR Monitor on telemetry Chronic back pain Spinal stenosis When necessary pain treatments Start physical therapy soon DVT prophylaxis Patient is hypertherapeutic on Coumadin Problem Qualifiers (1) Fall: Qualified Code: W19.XXXA - Fall, initial encounter (2) Acute renal failure: Qualified Code: N17.9 - Acute renal failure, unspecified acute renal failure type (3) Lower extremity cellulitis: Qualified Code: L03.115 - Cellulitis of right lower extremity Mahesh Pacheco MD Feb 23, 2017 13:54
--- NOTE | 2017-02-23 16:12 | EKG ---
Date Performed: 02/22/2017 Time Performed: 12:26:48 PTAGE: 81 years EKG: ATRIAL FIBRILLATION ST DEVIATION AND MODERATE T-WAVE ABNORMALITY, CONSIDER INFERIOR ISCHEMI A ABNORMAL ECG SINCE PRIOR TRACING ATRIAL FIBRILLATION IS SLOWER.ST CHANGES ARE MORE PROMINANT. PREVIOUS TRACING : 01/29/2017 19.29 DOCTOR: Williams Avendaño Interpretating Date/Time 02/23/2017 16:11:09
[2017-02-23 17:11] LABS: BICARBONATE 27.7 MEQ/L (21.0-32.0); POTASSIUM 3.7 MEQ/L (3.5-5.1)
[2017-02-24 04:20] VITALS: BP 115/57; PULSE 92; RESP 20; TEMP 97.8; O2SAT 97
[2017-02-24] MEDS: SODIUM CHLOR 0.9% 1000 ML INJ 1,000 ML IV SCH ×3 (05:30→23:47)
[2017-02-24 08:00] VITALS: BP 157/63; PULSE 95; RESP 20; TEMP 98.1; O2SAT 97
[2017-02-24] MEDS: SODIUM CHLORIDE 0.9% FLUSH 10 ML FLUSH IV FLUSH SCH ×2 (09:00→21:23)
[2017-02-24 09:25] LABS: HEMATOCRIT 38.8 % (39.0-51.0); MEAN CELL VOLUME 94.4 FL (80.0-100.0); MEAN CORPUSCULAR HEMOGLOBIN 30.9 PG (27.0-34.0); MEAN CORPUSCULAR HGB CONC 32.7 % (32.0-36.0); PLATELET COUNT 466 TH/MM3 (150-450); RED BLOOD COUNT 4.11 MIL/MM3 (4.50-5.90); RED CELL DISTRIBUTION WIDTH 15.8 % (11.6-17.2); REVIEW FLAG FINAL; WHITE BLOOD COUNT 11.1 TH/MM3 (4.0-11.0)
[2017-02-24] MEDS: DOCUSATE SODIUM 50 MG/SENNA 8.6 MG TAB PO SCH ×2 (09:37→21:23)
[2017-02-24] MEDS: LACTOBACILLUS ACIDOPHILUS TAB PO SCH ×3 (09:37→17:13)
[2017-02-24 10:08] LABS: BICARBONATE 25.5 MEQ/L (21.0-32.0)
[2017-02-24 10:27] LABS: POTASSIUM 3.7 MEQ/L (3.5-5.1)
[2017-02-24 11:23] LABS: PROTHROMBIN TIME - PATIENT 25.1 SEC (9.8-11.6)
[2017-02-24 11:27] LABS: INTERNATIONAL NORMALIZED RATIO 2.2 RATIO
--- NOTE | 2017-02-24 11:38 | HHI.PR ---
Subjective Remarks This is a pleasant 81 y/o Male who is returned to the hospital today secondary to bilateral lower extremity infections with the most prominent infection of the right lower extremity. This has been a problem in the past. Risks for infections include multiple open wounds at the arms and bilateral legs secondary to frequent falls. He has been here for cellulitis previously on 01/29/17. has been at Rehab for 9 days after been discharged from this facility, received antibiotics, After stopping antibiotics he reports that he has had a progressive worsening again of his lower extremity cellulitis. Other baseline conditions include atrial fibrillation for which she is on Coumadin. Seen in his bedroom in the presence of nurse, patient stable improving his condition, removed Whitehead cath, Leukocytosis 11.1 from 18.8, hospital cleaning specialist to follow. blood cultures negative. Objective Vital Signs Date Time Temp Pulse Resp B/P Pulse Ox O2 Delivery O2 Flow Rate FiO2 02/24/17 08:00 98.1 95 20 157/63 97 02/24/17 04:20 97.8 92 20 115/57 97 02/23/17 23:08 97.9 105 20 131/59 96 02/23/17 20:45 99 02/23/17 19:37 98.0 97 20 108/57 96 02/23/17 16:00 98.7 106 20 121/64 97 02/23/17 12:00 97.5 83 18 122/58 96 I/O 02/23/17 02/23/17 02/23/17 02/24/17 02/24/17 02/24/17 07:00 15:00 23:00 07:00 15:00 23:00 Intake Total 860 ml 1326 ml 1595 ml 240 ml Output Total 350 ml 500 ml 200 ml 350 ml Balance 510 ml 826 ml 1395 ml -110 ml Intake Oral 140 ml 480 ml 720 ml 240 ml IV Total 720 ml 846 ml 875 ml Output Urine Total 350 ml 500 ml 200 ml 350 ml # Bowel Movements 0 1 0 0 Result Diagram: 02/24/17 0745 02/24/17 0745 Imaging Last Impressions Thoracic Spine X-Ray 02/22/17 1246 Signed Impressions: Service Date/Time: Wednesday, February 22, 2017 13:00 - CONCLUSION: No acute disease. Keny Huynh Jr., MD Hip and Pelvis X-Ray 6/7/17 1211 Signed Impressions: Service Date/Time: Wednesday, February 22, 2017 13:00 - CONCLUSION: 1. No acute fracture or dislocation. 2. Degenerative osteoarthritis. Dwain Juares MD Head CT 02/22/171210 Signed Impressions: Service Date/Time: Wednesday, February 22, 2017 12:34 - CONCLUSION: No acute disease. Keny Huynh Jr., MD Chest X-Ray 02/22/171210 Signed Impressions: Service Date/Time: Wednesday, February 22, 2017 12:52 - CONCLUSION: 1. No acute cardiopulmonary disease. Dwain Juares MD Cervical Spine CT 02/22/171210 Signed Impressions: Service Date/Time: Wednesday, February 22, 2017 12:34 - CONCLUSION: 1. No acute fracture or dislocation. 2. Pronounced multilevel degenerative changes as detailed in the above discussion. Keny Huynh Jr., MD Procedures No procedures. Other Results Laboratory Tests Test 02/22/17 02/22/17 02/23/17 02/23/17 12:25 14:05 00:30 07:14 Activated Partial 57.0 SEC Thromboplast Time Total Bilirubin 1.0 MG/DL Aspartate Amino Transf 49 U/L (AST/SGOT) Alanine Aminotransferase 44 U/L (ALT/SGPT) Alkaline Phosphatase 114 U/L Troponin I 0.02 NG/ML B-Type Natriuretic Peptide 158 PG/ML Total Protein 6.8 GM/DL Albumin 2.8 GM/DL Urine Color YELLOW Urine Turbidity CLEAR Urine pH 5.0 Urine Specific [place] 1.014 Urine Protein TRACE mg/dL Urine Glucose (UA) NEG mg/dL Urine Ketones NEG mg/dL Urine Occult Blood NEG Urine Nitrite NEG Urine Bilirubin NEG Urine Urobilinogen LESS THAN 2.0 MG/DL Urine Leukocyte Esterase NEG Urine RBC 1 /hpf Urine WBC LESS THAN 1 /hpf Urine Hyaline Casts 3 /lpf Urine Mucus FEW /lpf Microscopic Urinalysis Comment CULT NOT INDICATED Lactic Acid Level 1.9 mmol/L Total Creatine Kinase 428 U/L Creatine Kinase MB 3.7 NG/ML Creatine Kinase MB % 0.9 % Neutrophils (%) (Auto) 81.0 % Lymphocytes (%) (Auto) 6.1 % Monocytes (%) (Auto) 11.9 % Eosinophils (%) (Auto) 0.6 % Basophils (%) (Auto) 0.4 % Neutrophils # (Auto) 12.4 TH/MM3 Lymphocytes # (Auto) 0.9 TH/MM3 Monocytes # (Auto) 1.8 TH/MM3 Eosinophils # (Auto) 0.1 TH/MM3 Basophils # (Auto) 0.1 TH/MM3 CBC Comment DIFF FINAL Differential Comment Test 02/24/17 02/24/17 07:45 10:40 White Blood Count 11.1 TH/MM3 Red Blood Count 4.11 MIL/MM3 Hemoglobin 12.7 GM/DL Hematocrit 38.8 % Mean Corpuscular Volume 94.4 FL Mean Corpuscular Hemoglobin 30.9 PG Mean Corpuscular Hemoglobin 32.7 % Concent Red Cell Distribution Width 15.8 % Platelet Count 466 TH/MM3 Mean Platelet Volume 7.9 FL Sodium Level 141 MEQ/L Potassium Level 3.7 MEQ/L Chloride Level 108 MEQ/L Carbon Dioxide Level 25.5 MEQ/L Anion Gap 8 MEQ/L Blood Urea Nitrogen 22 MG/DL Creatinine 0.98 MG/DL Estimat Glomerular Filtration 74 ML/MIN Rate Random Glucose 106 MG/DL Calcium Level 7.8 MG/DL Random Vancomycin Level 9.4 COMMENT Prothrombin Time 25.1 SEC Prothromb Time International 2.2 RATIO Ratio Objective Remarks GENERAL: NAD, A&Ox3 SKIN: Warm and dry. Multiple abrasions and excoriations at bilateral arms and lower extremities and multiple stages of healing. Dressed now. HEAD: Normocephalic. EYES: No scleral icterus. No injection or drainage. NECK: Supple, trachea midline. No JVD or lymphadenopathy. CARDIOVASCULAR: Regular rate and rhythm without murmurs, gallops, or rubs. RESPIRATORY: Breath sounds equal bilaterally. No accessory muscle use. GASTROINTESTINAL: Abdomen soft, non-tender, nondistended. MUSCULOSKELETAL: No cyanosis, lower extremity edema is present bilaterally. Medications and IVs Current Medications Medications (Trade) Dose Ordered Sig/Сергей Route Start Time Stop Time Status Last Admin Sodium Chloride 2 ml 2 ml UNSCH PRN IVF 02/22/17 12:15 (NS 1000 ml Inj) 1,000 ml @ 100 mls/hr Q10H IV 02/22/17 14:02 02/24/17 05:30 (NS Flush) 2 ml UNSCH PRN IV FLUSH 02/22/17 14:15 (NS Flush) 2 ml BID IV FLUSH 02/22/17 21:00 02/23/17 21:00 (Zofran Inj) 4 mg Q6H PRN IVP 02/22/17 14:15 (Narcan Inj) 0.4 mg UNSCH PRN IV 02/22/17 14:15 (Shelly-Colace) 1 tab BID PO 02/22/17 21:00 02/24/17 09:37 (Milk Of Magnesia Liq) 30 ml Q12H PRN PO 02/22/17 14:15 (Senokot) 17.2 mg Q12H PRN PO 02/22/17 14:15 (Dulcolax Supp) 10 mg DAILY PRN RECTAL 02/22/17 14:15 (Lactulose Liq) 30 ml DAILY PRN PO 02/22/17 14:15 Lactobacillus Acidophilus 1 tab 1 tab TID PO 02/22/17 18:00 02/24/17 09:37 (Vancomycin Consult Pharmacy) 0 ml @ 0 mls/hr UNSCH OTHER 02/22/17 15:30 A/P Assessment and Plan Left lower extremity cellulitis Right lower extremity cellulitis Outpatient treatment failure Right side infection is worsening left Vancomycin, at renal dosing with expectation for improvement to time Wound care consult. Coagulopathy secondary to Coumadin intake now improved INR 2.2 Re start Coumadin today Follow INR Acute renal failure Improved. Frequent falls Start Physical therapy once patient is more stable Hypertension Controlled. Prostate cancer history Follows in outpatient Atrial fibrillation Chronic back pain Spinal stenosis When necessary pain treatments Start physical therapy soon DVT prophylaxis Patient is therapeutic on Coumadin Removed Whitehead cath Discharge Planning Expected in one to two days Chase Hutchins MD Feb 24, 2017 11:38 DVT prophylaxis Patient is hypertherapeutic on Coumadin Chase Hutchins MD Feb 24, 2017 11:38
[2017-02-24 12:00] VITALS: BP 117/55; PULSE 97; RESP 20; TEMP 98.2; O2SAT 96
[2017-02-24] MEDS: WARFARIN SOD 2.5 MG TAB PO SCH (14:39)
[2017-02-24] MEDS: VANCOMYCIN INJ 1,750 MG in SODIUM CHLORID 0.9% 500 ML INJ 500 ML IV SCH (14:39)
[2017-02-24 16:00] VITALS: BP 125/58; PULSE 91; RESP 18; TEMP 97.9; O2SAT 98
[2017-02-24 20:20] VITALS: BP 145/63; PULSE 94; RESP 18; TEMP 97.8; O2SAT 98
--- NOTE | 2017-02-24 20:36 | PD.WCN.NOT ---
Wound Consult Description: Wound Care consulted for Wound Management of legs. Patient was seen on [facility] for multiple full thickness and partial thickness skinloss abrasions noted to upper and lower extremities. Lower extremities were cleansed with wound cleanser and gauze. Single layer xeroform was applied and covered with gauze and secured with rolled gauze and tape. NO TAPE WAS APPLIED TO PATIENT SKIN. RN at bedside state that she wound finish the dressing applications to the upper extremity wounds. Communicated with: RN taking care of patient Recommendation: DAILY APPLY: Single layer Xeroform to open areas only. Cover with 4x4's. Secure with rolled gauze and tape. PLEASE DO NOT APPLY TAPE TO SKIN. Iv[facility] Shin [facility] Feb 24, 2017 20:36
[2017-02-24 23:00] VITALS: BP 145/65; PULSE 87; RESP 18; TEMP 98.3; O2SAT 98
[2017-02-25 03:58] VITALS: BP 152/71; PULSE 96; RESP 18; TEMP 97.7; O2SAT 97
[2017-02-25 08:00] VITALS: BP 132/66; PULSE 75; PULSE 82; RESP 18; TEMP 97.7; O2SAT 97
[2017-02-25] MEDS: DOCUSATE SODIUM 50 MG/SENNA 8.6 MG TAB PO SCH ×2 (08:29→20:44)
[2017-02-25] MEDS: LACTOBACILLUS ACIDOPHILUS TAB PO SCH ×3 (08:29→16:42)
[2017-02-25] MEDS: SODIUM CHLORIDE 0.9% FLUSH 10 ML FLUSH IV FLUSH SCH ×2 (08:30→20:44)
[2017-02-25] MEDS: SODIUM CHLOR 0.9% 1000 ML INJ 1,000 ML IV SCH ×2 (08:32→20:44)
[2017-02-25 09:31] LABS: INTERNATIONAL NORMALIZED RATIO 2.1 RATIO; PROTHROMBIN TIME - PATIENT 23.8 SEC (9.8-11.6)
[2017-02-25 12:00] VITALS: BP 118/78; PULSE 94; RESP 18; TEMP 98.1; O2SAT 97
[2017-02-25] MEDS: VANCOMYCIN INJ 1,750 MG in SODIUM CHLORID 0.9% 500 ML INJ 500 ML IV SCH (12:43)
[2017-02-25 16:00] VITALS: BP 145/77; PULSE 72; RESP 18; TEMP 98.3; O2SAT 97
[2017-02-25] MEDS: WARFARIN SOD 2.5 MG TAB PO SCH (16:42)
--- NOTE | 2017-02-25 17:51 | HHI.PR ---
Subjective Remarks This is a pleasant 81 y/o Male who is returned to the hospital today secondary to bilateral lower extremity infections with the most prominent infection of the right lower extremity. This has been a problem in the past. Risks for infections include multiple open wounds at the arms and bilateral legs secondary to frequent falls. He has been here for cellulitis previously on 01/29/17. has been at Rehab for 9 days after been discharged from this facility, received antibiotics, After stopping antibiotics he reports that he has had a progressive worsening again of his lower extremity cellulitis. Other baseline conditions include atrial fibrillation for which she is on Coumadin. Seen in his bedroom in the presence of nurse, patient stable improving his condition, removed Whitehead cath, Leukocytosis 11.1 from 18.8, measurement specialist to follow. blood cultures negative. 02/25: Stable in his bedroom seen in the presence of nurse Miss Calhoun he is stable , No nausea, vomit or diarrhea, improving condition asked for PT evaluation, continue wound care, to [place] antibiotics depend of his blood cultures. Objective Vital Signs Date Time Temp Pulse Resp B/P Pulse Ox O2 Delivery O2 Flow Rate FiO2 02/25/17 16:00 98.3 72 18 145/77 97 02/25/17 12:00 98.1 94 18 118/78 97 02/25/17 08:00 97.7 75 18 132/66 97 02/25/17 08:00 82 02/25/17 03:58 97.7 96 18 152/71 97 02/24/17 23:00 98.3 87 18 145/65 98 02/24/17 20:20 97.8 94 18 145/63 98 I/O 02/24/17 02/24/17 02/24/17 02/25/17 02/25/17 02/25/17 07:00 15:00 23:00 07:00 15:00 23:00 Intake Total 240 ml 360 ml 1345 ml 1222 ml 1758 ml Output Total 350 ml 350 ml 420 ml 400 ml Balance -110 ml 10 ml 1345 ml 802 ml 1358 ml Intake Oral 240 ml 360 ml 450 ml 500 ml 360 ml IV Total 895 ml 722 ml 1398 ml Output Urine Total 350 ml 350 ml 420 ml 400 ml # Voids 0 # Bowel Movements 0 1 0 0 0 Result Diagram: 02/24/17 0745 02/25/17 0743 Imaging Last Impressions Thoracic Spine X-Ray 02/22/17 1246 Signed Impressions: Service Date/Time: Wednesday, February 22, 2017 13:00 - CONCLUSION: No acute disease. Keny Huynh Jr., MD Hip and Pelvis X-Ray 02/22/17 1211 Signed Impressions: Service Date/Time: Wednesday, February 22, 2017 13:00 - CONCLUSION: 1. No acute fracture or dislocation. 2. Degenerative osteoarthritis. Dwain uJares MD Head CT 02/22/171210 Signed Impressions: Service Date/Time: Wednesday, February 22, 2017 12:34 - CONCLUSION: No acute disease. Keny Huynh Jr., MD Chest X-Ray 02/22/171210 Signed Impressions: Service Date/Time: Wednesday, February 22, 2017 12:52 - CONCLUSION: 1. No acute cardiopulmonary disease. Dwain Juares MD Cervical Spine CT 02/22/171210 Signed Impressions: Service Date/Time: Wednesday, February 22, 2017 12:34 - CONCLUSION: 1. No acute fracture or dislocation. 2. Pronounced multilevel degenerative changes as detailed in the above discussion. Keyn Huynh Jr., MD Procedures No procedures. Other Results Laboratory Tests Test 02/22/17 02/22/17 02/23/17 02/23/17 12:25 14:05 00:30 07:14 Activated Partial 57.0 SEC Thromboplast Time Total Bilirubin 1.0 MG/DL Aspartate Amino Transf 49 U/L (AST/SGOT) Alanine Aminotransferase 44 U/L (ALT/SGPT) Alkaline Phosphatase 114 U/L Troponin I 0.02 NG/ML B-Type Natriuretic Peptide 158 PG/ML Total Protein 6.8 GM/DL Albumin 2.8 GM/DL Urine Color YELLOW Urine Turbidity CLEAR Urine pH 5.0 Urine Specific [place] 1.014 Urine Protein TRACE mg/dL Urine Glucose (UA) NEG mg/dL Urine Ketones NEG mg/dL Urine Occult Blood NEG Urine Nitrite NEG Urine Bilirubin NEG Urine Urobilinogen LESS THAN 2.0 MG/DL Urine Leukocyte Esterase NEG Urine RBC 1 /hpf Urine WBC LESS THAN 1 /hpf Urine Hyaline Casts 3 /lpf Urine Mucus FEW /lpf Microscopic Urinalysis Comment CULT NOT INDICATED Lactic Acid Level 1.9 mmol/L Total Creatine Kinase 428 U/L Creatine Kinase MB 3.7 NG/ML Creatine Kinase MB % 0.9 % Neutrophils (%) (Auto) 81.0 % Lymphocytes (%) (Auto) 6.1 % Monocytes (%) (Auto) 11.9 % Eosinophils (%) (Auto) 0.6 % Basophils (%) (Auto) 0.4 % Neutrophils # (Auto) 12.4 TH/MM3 Lymphocytes # (Auto) 0.9 TH/MM3 Monocytes # (Auto) 1.8 TH/MM3 Eosinophils # (Auto) 0.1 TH/MM3 Basophils # (Auto) 0.1 TH/MM3 CBC Comment DIFF FINAL Differential Comment Test 02/24/17 02/25/17 07:45 07:43 White Blood Count 11.1 TH/MM3 Red Blood Count 4.11 MIL/MM3 Hemoglobin 12.7 GM/DL Hematocrit 38.8 % Mean Corpuscular Volume 94.4 FL Mean Corpuscular Hemoglobin 30.9 PG Mean Corpuscular Hemoglobin 32.7 % Concent Red Cell Distribution Width 15.8 % Platelet Count 466 TH/MM3 Mean Platelet Volume 7.9 FL Sodium Level 141 MEQ/L Potassium Level 3.7 MEQ/L Chloride Level 108 MEQ/L Carbon Dioxide Level 25.5 MEQ/L Anion Gap 8 MEQ/L Blood Urea Nitrogen 22 MG/DL Random Glucose 106 MG/DL Calcium Level 7.8 MG/DL Random Vancomycin Level 9.4 COMMENT Prothrombin Time 23.8 SEC Prothromb Time International 2.1 RATIO Ratio Creatinine 0.79 MG/DL Estimat Glomerular Filtration 95 ML/MIN Rate Objective Remarks GENERAL: NAD, A&Ox3 SKIN: Warm and dry. Multiple abrasions and excoriations at bilateral arms and lower extremities and multiple stages of healing. Dressed now. HEAD: Normocephalic. EYES: No scleral icterus. No injection or drainage. NECK: Supple, trachea midline. No JVD or lymphadenopathy. CARDIOVASCULAR: Regular rate and rhythm without murmurs, gallops, or rubs. RESPIRATORY: Breath sounds equal bilaterally. No accessory muscle use. GASTROINTESTINAL: Abdomen soft, non-tender, nondistended. MUSCULOSKELETAL: No cyanosis, lower extremity edema is present bilaterally. Medications and IVs Current Medications Medications (Trade) Dose Ordered Sig/Сергей Route Start Time Stop Time Status Last Admin (NS 1000 ml Inj) 1,000 ml @ 100 mls/hr Q10H IV 02/22/17 14:02 02/25/17 08:32 (NS Flush) 2 ml UNSCH PRN IV FLUSH 02/22/17 14:15 (NS Flush) 2 ml BID IV FLUSH 02/22/17 21:00 02/25/17 08:30 (Zofran Inj) 4 mg Q6H PRN IVP 02/22/17 14:15 (Narcan Inj) 0.4 mg UNSCH PRN IV 02/22/17 14:15 (Shelly-Colace) 1 tab BID PO 02/22/17 21:00 02/25/17 08:29 (Milk Of Magnesia Liq) 30 ml Q12H PRN PO 02/22/17 14:15 (Senokot) 17.2 mg Q12H PRN PO 02/22/17 14:15 (Dulcolax Supp) 10 mg DAILY PRN RECTAL 02/22/17 14:15 (Lactulose Liq) 30 ml DAILY PRN PO 02/22/17 14:15 Lactobacillus Acidophilus 1 tab 1 tab TID PO 02/22/17 18:00 02/25/17 16:42 Pharmacy Profile Note 0 ml @ 0 mls/hr UNSCH OTHER 02/22/17 15:30 (Vancomycin Inj/ NS 500 ml Inj) 517.5 ml @ 258.75 mls/ hr Q24H IV 02/24/17 13:00 02/25/17 12:43 Miscellaneous Information SPECIFIC LAB TO BE SANGITA... ONCE ONCE .XX 02/26/17 12:45 02/26/17 12:46 (Coumadin) 2.5 mg DAILY@16 PO 02/24/17 16:00 02/25/17 16:42 A/P Assessment and Plan Left lower extremity cellulitis Right lower extremity cellulitis Outpatient treatment failure Right side infection is worsening left Vancomycin, at renal dosing with expectation for improvement to time Wound care consult. Coagulopathy secondary to Coumadin intake now improved INR 2.1 Follow INR Frequent falls Start Physical therapy once patient is more stable Hypertension Controlled but low not able to re start his home medicines Prostate cancer history Follows in outpatient Atrial fibrillation continue anticoagulation, not started some medicines due to hypotension. Chronic back pain Spinal stenosis When necessary pain treatments Start physical therapy DVT prophylaxis Patient is therapeutic on Coumadin Discharge Planning Expected in one to two days Alec Telles,Chase MD Feb 25, 2017 17:51 Discharge Planning Expected in one to two days Chase Hutchins MD Feb 25, 2017 17:51
[2017-02-25 20:00] VITALS: BP 122/82; PULSE 92; RESP 20; TEMP 98; O2SAT 90
[2017-02-26] VITALS (8 sets, daily range): BP systolic 112–169; BP diastolic 55–79; PULSE 63–125; RESP 16–20; TEMP 97.6–98.1; O2SAT 97–98
[2017-02-26] MEDS: SODIUM CHLOR 0.9% 1000 ML INJ 1,000 ML IV SCH (06:25)
[2017-02-26] MEDS: DOCUSATE SODIUM 50 MG/SENNA 8.6 MG TAB PO SCH ×2 (08:31→20:34)
[2017-02-26] MEDS: LACTOBACILLUS ACIDOPHILUS TAB PO SCH ×3 (08:31→16:49)
[2017-02-26] MEDS: SODIUM CHLORIDE 0.9% FLUSH 10 ML FLUSH IV FLUSH SCH ×2 (08:31→20:34)
[2017-02-26] MEDS ORDERED: BUMETANIDE 1 MG TAB PO PRN (09:45)
[2017-02-26] MEDS ORDERED: DIGOXIN 0.125 MG TAB PO SCH (09:45)
[2017-02-26] MEDS: METOPROLOL TARTRATE 100 MG TAB PO SCH ×2 (10:17→20:34)
[2017-02-26] MEDS: DILTIAZEM-CD 300 MG CAP ER PO SCH (10:17)
--- NOTE | 2017-02-26 10:52 | HHI.PR ---
Subjective Remarks This is a pleasant 81 y/o Male who is returned to the hospital today secondary to bilateral lower extremity infections with the most prominent infection of the right lower extremity. This has been a problem in the past. Risks for infections include multiple open wounds at the arms and bilateral legs secondary to frequent falls. He has been here for cellulitis previously on 01/29/17. has been at Rehab for 9 days after been discharged from this facility, received antibiotics, After stopping antibiotics he reports that he has had a progressive worsening again of his lower extremity cellulitis. Other baseline conditions include atrial fibrillation for which she is on Coumadin. Seen in his bedroom in the presence of nurse, patient stable improving his condition, removed Whitehead cath, Leukocytosis 11.1 from 18.8, piercing specialist to follow. blood cultures negative. 02/26: Seen in his bedroom in the presence of nurse Miss Elissa stable no new issues, continue wound care. today his blood Pressure has increased re started his home medicines, he does not want to re Start Digoxin will get Digoxin levels and follow off this medicine, Physical therapy recommendations for Rehab. Objective Vital Signs Date Time Temp Pulse Resp B/P Pulse Ox O2 Delivery O2 Flow Rate FiO2 02/26/17 10:25 125 02/26/17 08:00 97.6 95 16 169/75 98 02/26/17 08:00 Room Air 02/26/17 04:00 98.1 88 18 142/78 97 02/26/17 00:00 97.9 89 18 148/62 97 02/25/17 20:00 98.0 92 20 90 122/82 02/25/17 16:00 98.3 72 18 145/77 97 02/25/17 12:00 98.1 94 18 118/78 97 I/O 02/25/17 02/25/17 02/25/17 02/26/17 02/26/17 02/26/17 07:00 15:00 23:00 07:00 15:00 23:00 Intake Total 1222 ml 1758 ml 809 ml 798 ml Output Total 420 ml 400 ml 200 ml 500 ml Balance 802 ml 1358 ml 609 ml 298 ml Intake Oral 500 ml 360 ml 240 ml IV Total 722 ml 1398 ml 569 ml 798 ml Output Urine Total 420 ml 400 ml 200 ml 500 ml # Bowel Movements 0 0 0 0 Result Diagram: 02/24/17 0745 02/26/17 0541 Imaging Last Impressions Thoracic Spine X-Ray 02/22/17 1246 Signed Impressions: Service Date/Time: Wednesday, February 22, 2017 13:00 - CONCLUSION: No acute disease. Keny Huynh Jr., MD Hip and Pelvis X-Ray 02/22/17 1211 Signed Impressions: Service Date/Time: Wednesday, February 22, 2017 13:00 - CONCLUSION: 1. No acute fracture or dislocation. 2. Degenerative osteoarthritis. Dwani Juares MD Head CT 02/22/17 121 Signed Impressions: Service Date/Time: Wednesday, February 22, 2017 12:34 - CONCLUSION: No acute disease. Keny Huynh Jr., MD Chest X-Ray 02/22/17 121 Signed Impressions: Service Date/Time: Wednesday, February 22, 2017 12:52 - CONCLUSION: 1. No acute cardiopulmonary disease. Dwain Juares MD Cervical Spine CT 02/22/171210 Signed Impressions: Service Date/Time: Wednesday, February 22, 2017 12:34 - CONCLUSION: 1. No acute fracture or dislocation. 2. Pronounced multilevel degenerative changes as detailed in the above discussion. Keny Huynh Jr., MD Procedures No procedures. Other Results Laboratory Tests Test 02/22/17 02/22/17 02/23/17 02/23/17 12:25 14:05 00:30 07:14 Activated Partial 57.0 SEC Thromboplast Time Total Bilirubin 1.0 MG/DL Aspartate Amino Transf 49 U/L (AST/SGOT) Alanine Aminotransferase 44 U/L (ALT/SGPT) Alkaline Phosphatase 114 U/L Troponin I 0.02 NG/ML B-Type Natriuretic Peptide 158 PG/ML Total Protein 6.8 GM/DL Albumin 2.8 GM/DL Urine Color YELLOW Urine Turbidity CLEAR Urine pH 5.0 Urine Specific [place] 1.014 Urine Protein TRACE mg/dL Urine Glucose (UA) NEG mg/dL Urine Ketones NEG mg/dL Urine Occult Blood NEG Urine Nitrite NEG Urine Bilirubin NEG Urine Urobilinogen LESS THAN 2.0 MG/DL Urine Leukocyte Esterase NEG Urine RBC 1 /hpf Urine WBC LESS THAN 1 /hpf Urine Hyaline Casts 3 /lpf Urine Mucus FEW /lpf Microscopic Urinalysis Comment CULT NOT INDICATED Lactic Acid Level 1.9 mmol/L Total Creatine Kinase 428 U/L Creatine Kinase MB 3.7 NG/ML Creatine Kinase MB % 0.9 % Neutrophils (%) (Auto) 81.0 % Lymphocytes (%) (Auto) 6.1 % Monocytes (%) (Auto) 11.9 % Eosinophils (%) (Auto) 0.6 % Basophils (%) (Auto) 0.4 % Neutrophils # (Auto) 12.4 TH/MM3 Lymphocytes # (Auto) 0.9 TH/MM3 Monocytes # (Auto) 1.8 TH/MM3 Eosinophils # (Auto) 0.1 TH/MM3 Basophils # (Auto) 0.1 TH/MM3 CBC Comment DIFF FINAL Differential Comment Test 02/24/17 02/25/17 02/26/17 07:45 07:43 05:41 White Blood Count 11.1 TH/MM3 Red Blood Count 4.11 MIL/MM3 Hemoglobin 12.7 GM/DL Hematocrit 38.8 % Mean Corpuscular Volume 94.4 FL Mean Corpuscular Hemoglobin 30.9 PG Mean Corpuscular Hemoglobin 32.7 % Concent Red Cell Distribution Width 15.8 % Platelet Count 466 TH/MM3 Mean Platelet Volume 7.9 FL Sodium Level 141 MEQ/L Potassium Level 3.7 MEQ/L Chloride Level 108 MEQ/L Carbon Dioxide Level 25.5 MEQ/L Anion Gap 8 MEQ/L Blood Urea Nitrogen 22 MG/DL Random Glucose 106 MG/DL Calcium Level 7.8 MG/DL Random Vancomycin Level 9.4 COMMENT Prothrombin Time 23.8 SEC Prothromb Time International 2.1 RATIO Ratio Creatinine 0.82 MG/DL Estimat Glomerular Filtration 91 ML/MIN Rate Objective Remarks GENERAL: NAD, A&Ox3 SKIN: Warm and dry. Multiple abrasions and excoriations at bilateral arms and lower extremities and multiple stages of healing. Dressed now. HEAD: Normocephalic. EYES: No scleral icterus. No injection or drainage. NECK: Supple, trachea midline. No JVD or lymphadenopathy. CARDIOVASCULAR: Regular rate and rhythm without murmurs, gallops, or rubs. RESPIRATORY: Breath sounds equal bilaterally. No accessory muscle use. GASTROINTESTINAL: Abdomen soft, non-tender, nondistended. MUSCULOSKELETAL: No cyanosis, lower extremity edema is present bilaterally. Medications and IVs Current Medications Medications (Trade) Dose Ordered Sig/Сергей Route Start Time Stop Time Status Last Admin (NS Flush) 2 ml UNSCH PRN IV FLUSH 02/22/17 14:15 (NS Flush) 2 ml BID IV FLUSH 02/22/17 21:00 02/25/17 20:44 (Zofran Inj) 4 mg Q6H PRN IVP 02/22/17 14:15 (Narcan Inj) 0.4 mg UNSCH PRN IV 02/22/17 14:15 (Shelly-Colace) 1 tab BID PO 02/22/17 21:00 02/26/17 08:31 (Milk Of Magnesia Liq) 30 ml Q12H PRN PO 02/22/17 14:15 (Senokot) 17.2 mg Q12H PRN PO 02/22/17 14:15 (Dulcolax Supp) 10 mg DAILY PRN RECTAL 02/22/17 14:15 (Lactulose Liq) 30 ml DAILY PRN PO 02/22/17 14:15 Lactobacillus Acidophilus 1 tab 1 tab TID PO 02/22/17 18:00 02/26/17 08:31 Pharmacy Profile Note 0 ml @ 0 mls/hr UNSCH OTHER 02/22/17 15:30 (Vancomycin Inj/ NS 500 ml Inj) 517.5 ml @ 258.75 mls/ hr Q24H IV 02/24/17 13:00 02/25/17 12:43 Miscellaneous Information SPECIFIC LAB TO BE SANGITA... ONCE ONCE .XX 02/26/17 12:45 02/26/17 12:46 (Coumadin) 2.5 mg DAILY@16 PO 02/24/17 16:00 02/25/17 16:42 (Bumetanide) 2 mg DAILY PRN PO 02/26/17 09:45 (Lanoxin) 0.125 mg DAILY PO 02/26/17 09:45 Hold (Cardizem Cd) 300 mg DAILY PO 02/26/17 09:45 02/26/17 10:17 (Melatonin) 5 mg HS PO 02/26/17 21:00 (Lopressor) 100 mg BID PO 02/26/17 09:45 02/26/17 10:17 A/P Assessment and Plan Left lower extremity cellulitis Right lower extremity cellulitis Outpatient treatment failure Right side infection is worsening left blood culture negative, discontinued Vancomycin, and started on Levaquin 750 mg daily by mouth and Clindamycin 300 mg Q6 hours. Coagulopathy secondary to Coumadin intake now improved INR 2.1 yesterday Follow INR today Frequent falls Physical Therapy for Rehab. Hypertension Uncontrolled re started home medicines. Prostate cancer history Follows in outpatient Atrial fibrillation continue anticoagulation. started home medicines and following, except Digoxin the patient prefer not to continue this medicine, asked for Digoxin level and following. Chronic back pain Spinal stenosis When necessary pain treatments Start physical therapy DVT prophylaxis Patient is therapeutic on Coumadin Discharge Planning Expected by tomorrow. Chase Hutchins MD Feb 26, 2017 10:52
[2017-02-26] MEDS: CLINDAMYCIN 150 MG CAP PO SCH ×2 (11:20→16:49)
[2017-02-26] MEDS: LEVOFLOXACIN 750 MG TAB PO SCH (11:20)
[2017-02-26 12:07] LABS: INTERNATIONAL NORMALIZED RATIO 2.1 RATIO; PROTHROMBIN TIME - PATIENT 24.5 SEC (9.8-11.6)
[2017-02-26] MEDS ORDERED: PHARMACY ORDERED LAB ONE (12:45)
[2017-02-26] MEDS: WARFARIN SOD 2.5 MG TAB PO SCH (16:49)
[2017-02-26] MEDS ORDERED: MELATONIN 5 MG TAB PO SCH (21:00)
[2017-02-27] MEDS: CLINDAMYCIN 150 MG CAP PO SCH ×4 (00:53→17:10)
[2017-02-27 01:03] VITALS: BP 144/66; PULSE 70; RESP 20; TEMP 97.9; O2SAT 97
[2017-02-27 04:13] VITALS: BP 144/67; PULSE 74; RESP 18; TEMP 98; O2SAT 98
[2017-02-27 08:00] VITALS: BP 123/78; PULSE 119; PULSE 85; RESP 20; TEMP 97.3; O2SAT 98
[2017-02-27 08:07] LABS: INTERNATIONAL NORMALIZED RATIO 2.8 RATIO; PROTHROMBIN TIME - PATIENT 32.3 SEC (9.8-11.6)
[2017-02-27] MEDS: DOCUSATE SODIUM 50 MG/SENNA 8.6 MG TAB PO SCH (08:18)
[2017-02-27] MEDS: LACTOBACILLUS ACIDOPHILUS TAB PO SCH ×3 (08:18→17:10)
[2017-02-27] MEDS: LEVOFLOXACIN 750 MG TAB PO SCH (08:18)
[2017-02-27] MEDS: DILTIAZEM-CD 300 MG CAP ER PO SCH (08:18)
[2017-02-27] MEDS: METOPROLOL TARTRATE 100 MG TAB PO SCH (08:19)
[2017-02-27] MEDS: SODIUM CHLORIDE 0.9% FLUSH 10 ML FLUSH IV FLUSH SCH (08:19)
--- NOTE | 2017-02-27 09:02 | HHI.PR ---
Subjective Remarks This is a pleasant 81 y/o Male who is returned to the hospital today secondary to bilateral lower extremity infections with the most prominent infection of the right lower extremity. This has been a problem in the past. Risks for infections include multiple open wounds at the arms and bilateral legs secondary to frequent falls. He has been here for cellulitis previously on 01/29/17. has been at Rehab for 9 days after been discharged from this facility, received antibiotics, After stopping antibiotics he reports that he has had a progressive worsening again of his lower extremity cellulitis. Other baseline conditions include atrial fibrillation for which she is on Coumadin. Seen in his bedroom in the presence of nurse, patient stable improving his condition, removed Whitehead cath, Leukocytosis 11.1 from 18.8, data processing specialist to follow. blood cultures negative. 02/26: Seen in his bedroom in the presence of nurse Miss Elissa stable no new issues, continue wound care. today his blood Pressure has increased re started his home medicines, he does not want to re Start Digoxin will get Digoxin levels and follow off this medicine, Physical therapy recommendations for Rehab. 02/27: Stable will continue his Antibiotics, and discharge to SNF to continue rehabilitation and wound care, no Nausea, vomit or diarrhea Objective Vital Signs Date Time Temp Pulse Resp B/P Pulse Ox O2 Delivery O2 Flow Rate FiO2 02/27/17 08:21 Room Air 02/27/17 04:13 98.0 74 18 144/67 98 02/27/17 01:03 97.9 70 20 144/66 97 02/27/17 00:00 Room Air 02/26/17 21:00 Room Air 02/26/17 20:51 97.6 64 20 112/55 98 02/26/17 20:00 63 02/26/17 20:00 Room Air 02/26/17 16:00 97.9 81 16 147/72 97 02/26/17 16:00 Room Air 02/26/17 12:00 Room Air 02/26/17 12:00 97.9 101 18 142/79 98 02/26/17 10:25 125 I/O 02/26/17 02/26/17 02/26/17 02/27/17 02/27/17 02/27/17 07:00 15:00 23:00 07:00 15:00 23:00 Intake Total 798 ml 960 ml 700 ml Output Total 500 ml 0 ml 400 ml 500 ml Balance 298 ml 960 ml 300 ml -500 ml Intake Oral 960 ml 700 ml IV Total 798 ml Output Urine Total 500 ml 0 ml 400 ml 500 ml # Bowel Movements 0 0 Result Diagram: 02/24/17 0745 02/26/17 0541 Imaging Last Impressions Thoracic Spine X-Ray 02/22/17 1246 Signed Impressions: Service Date/Time: Wednesday, February 22, 2017 13:00 - CONCLUSION: No acute disease. Keny Huynh Jr., MD Hip and Pelvis X-Ray 02/22/17 1211 Signed Impressions: Service Date/Time: Wednesday, February 22, 2017 13:00 - CONCLUSION: 1. No acute fracture or dislocation. 2. Degenerative osteoarthritis. Dwain Juares MD Head CT 02/22/17 121 Signed Impressions: Service Date/Time: Wednesday, February 22, 2017 12:34 - CONCLUSION: No acute disease. Keny Huynh Jr., MD Chest X-Ray 02/22/17 121 Signed Impressions: Service Date/Time: Wednesday, February 22, 2017 12:52 - CONCLUSION: 1. No acute cardiopulmonary disease. Dwain Juares MD Cervical Spine CT 02/22/17 121 Signed Impressions: Service Date/Time: Wednesday, February 22, 2017 12:34 - CONCLUSION: 1. No acute fracture or dislocation. 2. Pronounced multilevel degenerative changes as detailed in the above discussion. Keny Huynh Jr., MD Procedures No procedures. Other Results Laboratory Tests Test 02/23/17 02/23/17 02/24/17 02/26/17 00:30 07:14 07:45 05:41 Total Creatine Kinase 428 U/L Creatine Kinase MB 3.7 NG/ML Creatine Kinase MB % 0.9 % Neutrophils (%) (Auto) 81.0 % Lymphocytes (%) (Auto) 6.1 % Monocytes (%) (Auto) 11.9 % Eosinophils (%) (Auto) 0.6 % Basophils (%) (Auto) 0.4 % Neutrophils # (Auto) 12.4 TH/MM3 Lymphocytes # (Auto) 0.9 TH/MM3 Monocytes # (Auto) 1.8 TH/MM3 Eosinophils # (Auto) 0.1 TH/MM3 Basophils # (Auto) 0.1 TH/MM3 CBC Comment DIFF FINAL Differential Comment White Blood Count 11.1 TH/MM3 Red Blood Count 4.11 MIL/MM3 Hemoglobin 12.7 GM/DL Hematocrit 38.8 % Mean Corpuscular Volume 94.4 FL Mean Corpuscular Hemoglobin 30.9 PG Mean Corpuscular Hemoglobin 32.7 % Concent Red Cell Distribution Width 15.8 % Platelet Count 466 TH/MM3 Mean Platelet Volume 7.9 FL Sodium Level 141 MEQ/L Potassium Level 3.7 MEQ/L Chloride Level 108 MEQ/L Carbon Dioxide Level 25.5 MEQ/L Anion Gap 8 MEQ/L Blood Urea Nitrogen 22 MG/DL Random Glucose 106 MG/DL Calcium Level 7.8 MG/DL Random Vancomycin Level 9.4 COMMENT Creatinine 0.82 MG/DL Estimat Glomerular Filtration 91 ML/MIN Rate Digoxin Level 0.8 NG/ML Test 02/27/17 06:52 Prothrombin Time 32.3 SEC Prothromb Time International 2.8 RATIO Ratio Objective Remarks GENERAL: NAD, A&Ox3 SKIN: Warm and dry. Multiple abrasions and excoriations at bilateral arms and lower extremities and multiple stages of healing. Dressed now. HEAD: Normocephalic. EYES: No scleral icterus. No injection or drainage. NECK: Supple, trachea midline. No JVD or lymphadenopathy. CARDIOVASCULAR: Regular rate and rhythm without murmurs, gallops, or rubs. RESPIRATORY: Breath sounds equal bilaterally. No accessory muscle use. GASTROINTESTINAL: Abdomen soft, non-tender, nondistended. MUSCULOSKELETAL: No cyanosis, lower extremity edema is present bilaterally. Medications and IVs Current Medications Medications (Trade) Dose Ordered Sig/Сергей Route Start Time Stop Time Status Last Admin (NS Flush) 2 ml UNSCH PRN IV FLUSH 02/22/17 14:15 (NS Flush) 2 ml BID IV FLUSH 02/22/17 21:00 02/27/17 08:19 (Zofran Inj) 4 mg Q6H PRN IVP 02/22/17 14:15 (Narcan Inj) 0.4 mg UNSCH PRN IV 02/22/17 14:15 (Shelly-Colace) 1 tab BID PO 02/22/17 21:00 02/27/17 08:18 (Milk Of Magnesia Liq) 30 ml Q12H PRN PO 02/22/17 14:15 (Senokot) 17.2 mg Q12H PRN PO 02/22/17 14:15 (Dulcolax Supp) 10 mg DAILY PRN RECTAL 02/22/17 14:15 (Lactulose Liq) 30 ml DAILY PRN PO 02/22/17 14:15 (Lactinex) 1 tab TID PO 02/22/17 18:00 02/27/17 08:18 (Coumadin) 2.5 mg DAILY@16 PO 02/24/17 16:00 02/26/17 16:49 (Bumetanide) 2 mg DAILY PRN PO 02/26/17 09:45 (Lanoxin) 0.125 mg DAILY PO 02/26/17 09:45 Hold (Cardizem Cd) 300 mg DAILY PO 02/26/17 09:45 02/27/17 08:18 (Melatonin) 5 mg HS PO 02/26/17 21:00 02/26/17 20:34 (Lopressor) 100 mg BID PO 02/26/17 09:45 02/27/17 08:19 (Cleocin) 300 mg Q6HR PO 02/26/17 12:00 02/27/17 05:18 (Levaquin) 750 mg DAILY PO 02/26/17 11:00 02/27/17 08:18 A/P Assessment and Plan Left lower extremity cellulitis Right lower extremity cellulitis Outpatient treatment failure Right side infection is worsening left blood culture negative, discontinued Vancomycin, continue Levaquin 750 mg daily for six more days and clindamycin for 10 days. Coagulopathy secondary to Coumadin intake now improved INR 2.8 continue Warfarin with Goal INR 2 to 3 and hold if INR in 3 or over. Frequent falls Physical Therapy for Rehab. Hypertension controlled with Home medicines. Prostate cancer history Follows in outpatient Atrial fibrillation continue anticoagulation. started home medicines and following, except Digoxin the patient prefer not to Digoxin level 0.8 but the patient do not want this medicine rate controlled on actual management. Chronic back pain Spinal stenosis When necessary pain treatments continue physical Therapy in Rehab DVT prophylaxis Patient is therapeutic on Coumadin Discharge Planning Discharge to Rehab. Chase Hutchins MD Feb 27, 2017 09:02
[2017-02-27] MEDS ORDERED: FAMOTIDINE 20 MG TAB PO SCH (10:00)
[2017-02-27] MEDS ORDERED: WARF4TAB51 PO (10:34)
[2017-02-27] MEDS ORDERED: LEVA750T9 PO (10:34)
[2017-02-27] MEDS ORDERED: CLIN150 PO (10:34)
[2017-02-27] MEDS ORDERED: LACT PO (10:34)
--- NOTE | 2017-02-27 10:38 | HHI.DS ---
Discharge Summary Admission Date Feb 22, 2017 at 14:01 Discharge Date: Feb 27, 2017 Admitting Diagnosis bilateral lower extremity cellulitis, supratherapeutic INR, HUGO (1) Failure of outpatient treatment ICD Code: Z78.9 Diagnosis: Principal (2) Acute renal failure ICD Code: N17.9 Diagnosis: Principal (3) Supratherapeutic INR ICD Code: R79.1 Diagnosis: Principal (4) Lower extremity cellulitis ICD Code: L03.119 Diagnosis: Principal (5) Fall ICD Code: W19.XXXA Diagnosis: Principal Procedures Wound care Brief History - From Admission Mr. Shea is a 81-year-old male. He is returned to the hospital today secondary to bilateral lower extremity infections with the most prominent infection of the right lower extremity. This has been a problem in the past. Risks for infections include multiple open wounds at the arms and bilateral legs secondary to frequent falls. He has been here for cellulitis previously on 01/29/17. He states for about 5 days and then discharged to a snf facility. He stated snf facility for about 9 days and received antibiotics both inpatient and after discharging to SNF. After stopping antibiotics he reports that he has had a progressive worsening again of his lower extremity cellulitis. He denies any fevers. Presently she has leukocytosis. No tachycardia, no tachypnea, no fever. He does not meet sepsis criteria. However he does have this outpatient treatment failure of lower extremity cellulitis. Other baseline conditions include atrial fibrillation for which she is on Coumadin. Coumadin is hypertherapeutic today. No signs of acute bleeding, he has some dried bleeding superficial wounds of the arms and legs. Renal function was normal at discharge. Today patient shows acute renal failure which may be secondary to infections and possible dehydration. CBC/BMP: 02/24/17 0745 02/26/17 0541 Significant Findings Laboratory Tests Test 02/24/17 02/25/17 02/26/17 02/27/17 10:40 07:43 11:25 06:52 Prothrombin Time 25.1 SEC 23.8 SEC 24.5 SEC 32.3 SEC (9.8-11.6) (9.8-11.6) (9.8-11.6) (9.8-11.6) Imaging Last Impressions Thoracic Spine X-Ray 02/22/17 1246 Signed Impressions: Service Date/Time: Wednesday, February 22, 2017 13:00 - CONCLUSION: No acute disease. Keny Huynh Jr., MD Hip and Pelvis X-Ray 02/22/17 1211 Signed Impressions: Service Date/Time: Wednesday, February 22, 2017 13:00 - CONCLUSION: 1. No acute fracture or dislocation. 2. Degenerative osteoarthritis. Dwain Juares MD Head CT 02/22/17 1211 Signed Impressions: Service Date/Time: Wednesday, February 22, 2017 12:34 - CONCLUSION: No acute disease. Keny Huynh Jr., MD Chest X-Ray 02/22/17 1211 Signed Impressions: Service Date/Time: Wednesday, February 22, 2017 12:52 - CONCLUSION: 1. No acute cardiopulmonary disease. Dwain Juares MD Cervical Spine CT 02/22/17 1211 Signed Impressions: Service Date/Time: Wednesday, February 22, 2017 12:34 - CONCLUSION: 1. No acute fracture or dislocation. 2. Pronounced multilevel degenerative changes as detailed in the above discussion. Keny Huynh Jr., MD PE at Discharge GENERAL: NAD, A&Ox3 SKIN: Warm and dry. Multiple abrasions and excoriations at bilateral arms and lower extremities and multiple stages of healing. Dressed now. HEAD: Normocephalic. EYES: No scleral icterus. No injection or drainage. NECK: Supple, trachea midline. No JVD or lymphadenopathy. CARDIOVASCULAR: Regular rate and rhythm without murmurs, gallops, or rubs. RESPIRATORY: Breath sounds equal bilaterally. No accessory muscle use. GASTROINTESTINAL: Abdomen soft, non-tender, nondistended. MUSCULOSKELETAL: No cyanosis, lower extremity edema is present bilaterally, multiple ulcers dressed now. Hospital Course This is a pleasant 81 y/o Male who is returned to the hospital today secondary to bilateral lower extremity infections with the most prominent infection of the right lower extremity. This has been a problem in the past. Risks for infections include multiple open wounds at the arms and bilateral legs secondary to frequent falls. He has been here for cellulitis previously on 01/29/17. has been at Rehab for 9 days after been discharged from this facility, received antibiotics, After stopping antibiotics he reports that he has had a progressive worsening again of his lower extremity cellulitis. Other baseline conditions include atrial fibrillation for which she is on Coumadin. Seen in his bedroom in the presence of nurse, patient stable improving his condition, removed Whitehead cath, Leukocytosis 11.1 from 18.8, review specialist to follow. blood cultures negative. 02/26: Seen in his bedroom in the presence of nurse Miss Elissa romero no new issues, continue wound care. today his blood Pressure has increased re started his home medicines, he does not want to re Start Digoxin will get Digoxin levels and follow off this medicine, Physical therapy recommendations for Rehab. 02/27: Stable will continue his Antibiotics, and discharge to SNF to continue rehabilitation and wound care, no Nausea, vomit or diarrhea Assessment and Plan Left lower extremity cellulitis Right lower extremity cellulitis Outpatient treatment failure Right side infection is worsening left blood culture negative, discontinued Vancomycin, continue Levaquin 750 mg daily for six more days and clindamycin for 10 days. Coagulopathy secondary to Coumadin intake now improved INR 2.8 continue Warfarin with Goal INR 2 to 3 and hold if INR in 3 or over. Frequent falls Physical Therapy for Rehab. Hypertension controlled with Home medicines. Prostate cancer history Follows in outpatient Atrial fibrillation continue anticoagulation. started home medicines and following, except Digoxin the patient prefer not to Digoxin level 0.8 but the patient do not want this medicine rate controlled on actual management. Chronic back pain Spinal stenosis When necessary pain treatments continue physical Therapy in Rehab DVT prophylaxis Patient is therapeutic on Coumadin Discharge Planning Discharge to Rehab. Pt Condition on Discharge: Good Discharge Disposition: Discharge to SNF Discharge Time: > 30 minutes Discharge Instructions DIET: Follow Instructions for: Heart Healthy Diet Activities you can perform: Regular-No Restrictions Other Activity Instructions: Follow PT recommendations in Rehab Chase Hutchins MD Feb 27, 2017 10:38
[2017-02-27 11:57] VITALS: BP 102/62; PULSE 71; RESP 20; TEMP 97.7; O2SAT 93
[2017-02-27 16:00] VITALS: BP 107/55; PULSE 77; RESP 20; TEMP 98; O2SAT 96
[2017-02-27] MEDS ORDERED: WARFARIN SOD 2 MG TAB PO SCH (16:00)
== END 2017-02-27 17:45 | DRG 603 ==
LOC: NEPC 11:53 → NEDA 14:01 → N04B 16:16
PROVIDERS: ADMIT Internal Medicine; ATTEND Internal Medicine
DX: L03.115 Cellulitis of right lower limb (principal); L03.116 Cellulitis of left lower limb; N17.9 Acute kidney failure, unspecified; R79.1 Abnormal coagulation profile; I48.91 Unspecified atrial fibrillation; G89.29 Other chronic pain; I10 Essential (primary) hypertension; R29.6 Repeated falls; Z79.01 Long term (current) use of anticoagulants; Z85.46 Personal history of malignant neoplasm of prostate
CPT/HCPCS: 70450; 71010; 72072; 72125; 73502; 76937; 80048; 80053; 80162; 80202; 81001; 82550; 82552; 82565; 83605; 83880; 84484; 85025; 85027; 85610; 85730; 87040; 93005; J3370; J7030; J7040; J7050